=== PATIENT | male | born 1970 | race American Indian/Alaskan Native ===

== ENCOUNTER 2018-11-25 15:33 | Inpatient (IN) | payer MEDICARE ==
[2018-11-25] MEDS ORDERED: D50W (25GM) Syringe IV PRN (16:08)
[2018-11-25] MEDS ORDERED: ZOFRAN ODT PO PRN (16:28)
[2018-11-25] MEDS ORDERED: MIRALAX 3350 PO PRN (16:28)
[2018-11-25] MEDS ORDERED: DULCOLAX PR PRN (16:28)
[2018-11-25] MEDS ORDERED: TYLENOL PO PRN (16:28)
[2018-11-25] MEDS ORDERED: VANCOMYCIN PHARMACY TO DOSE IV SCH (17:00)
[2018-11-25] MEDS: ROXICODONE PO PRN (21:51)
[2018-11-25] MEDS: COREG PO SCH (21:51)
[2018-11-25] MEDS: PRAVACHOL PO SCH (21:51)
[2018-11-25] MEDS: HEPARIN SUB-Q SCH (21:52)
[2018-11-25] MEDS: VANCOMYCIN 1,250 MG in NACL 0.9% 250ML 250 ML IV SCH (21:53)
[2018-11-25] MEDS: LANTUS SUB-Q SCH (21:57)
[2018-11-25] MEDS: CATAPRES PO SCH (22:39)
[2018-11-26] MEDS: CARDIZEM PO SCH ×4 (00:36→18:23)
[2018-11-26] MEDS: HumaLOG SUB-Q SCH ×4 (00:48→18:10)
[2018-11-26] MEDS: CATAPRES PO SCH ×3 (05:06→23:09)
[2018-11-26] MEDS: HEPARIN SUB-Q SCH ×3 (05:07→22:54)
[2018-11-26 06:33] LABS: Basophils % (Auto) 0.1 % (0.0-1.8); Hematocrit 26.6 % (35.5-45.6); Hemoglobin 8.8 gm/dl (11.8-15.2); Lymphocytes # (Auto) 0.9 K/mm3 (1.2-5.4); Lymphocytes % (Auto) 6.2 % (13.4-35.0); Mean Corpuscular HGB Conc 33 % (32-34); Mean Corpuscular Volume 80 fl (84-94); Monocytes # (Auto) 0.7 K/mm3 (0.0-0.8); Monocytes % (Auto) 5.2 % (0.0-7.3); Platelet Count 506 K/mm3 (140-440); Red Blood Count 3.33 M/mm3 (3.65-5.03); Red Cell Distribution Width 18.6 % (13.2-15.2)
[2018-11-26 06:34] LABS: Albumin 2.3 g/dL (3.9-5); Calcium 7.9 mg/dL (8.4-10.2)
[2018-11-26] MEDS: ROXICODONE PO PRN ×2 (08:10→18:10)
--- NOTE | 2018-11-26 08:31 | History and Physical Report ---
History of Present Illness Date: 11/26/18 Date of admission: 11/25/18 16:08 Chief Complaint: Left BKA, ADL and mobility deficits History of present illness: 48-year-old male who presented to the ER with pain and swelling with purulent drainage from the left diabetic foot wound. He had a recent medication of this second digit. He underwent a left BKA on November 20. Blood cultures were positive for MRSA and was started on IV vancomycin which she will continue thro [facility] in [place] 12/05. Initial blood cultures and postop blood cultures were positive as stated but follow-up blood cultures on November 22 were negative. Patient has a right BKA and has been ambulatory with a prosthesis. States that he recently was scheduled to see his prosthesis for a retrofit. Oddly enough he has a different prosthesis for each leg. I advised him it would be hernandez to have the same prosthesis for both legs and the choice would be up to him as far as which one he wants to continue with. Patient states that he did have phantom pain and sensation in the right lower extremity with his prior amputation from approximately 2011 however he has not experienced any phantom sensation or phantom pain currently with his left amputation. Dressing was taken down with therapy and no malodorous or purulent discharge was noted. He did have some slight bloody drainage at the anterior medial aspect on the staple line. After the patient was medically stabilized they were transferred for further rehabilitation. All available medical records have been reviewed. Plan of care was discussed with patient and family. Past History Past Medical History: anemia, diabetes, GERD, hypertension, hyperlipidemia, PVD, renal failure, other (obesity) Past Surgical History: Other (right BKA, vascular grafts) Social history: , lives with family, full code. denies: smoking, alcohol abuse, prescription drug abuse Family history: hypertension Medications and Allergies Allergies Allergy/AdvReac Type Severity Reaction Status Date / Time metformin Allergy Anaphylaxis Verified 11/25/18 20:02 Penicillins Allergy Anaphylaxis Verified 11/25/18 20:01 Home Medications Medication Instructions Recorded Confirmed Last Taken Type Acetaminophen [Acetaminophen ER] 650 mg PO Q6HR PRN 11/26/18 11/26/18 Unknown History Ascorbic Acid [Vitamin C] 250 mg PO QDAY 11/26/18 11/26/18 11/24/18 09:00 History Carvedilol [Coreg] 25 mg PO BID 11/26/18 11/26/1811/25/19 09:05 History Clonidine HCl [Catapres] 0.3 mg PO TID 11/26/18 11/26/18 11/25/18 14:40 History Deltasone 40 mg PO QDAY 11/26/18 11/26/18 11/25/18 09:00 History Famotidine [Pepcid] 20 mg PO BID 11/26/18 11/26/18 11/25/18 09:00 History Heparin Sodium,Porcine [Heparin 5,000 unit SUB-Q Q8HR 11/26/18 11/26/18 11/25/18 09:00 History Sodium 5000 unit/ml 1ml vial] Insulin Detemir [Levemir VIAL] 30 units SC QHS 11/26/18 11/26/18 11/25/18 21:45 History NIFEdipine XL [Procardia Xl] 60 mg PO QDAY 11/26/18 11/26/18 11/24/18 09:00 History Pravastatin 20 mg QDAY 11/26/18 11/26/18 11/25/18 21:45 History Vancomycin/0.9 % Sod Chloride 1,500 mg IV Q24HR 11/26/18 11/26/18 11/24/18 21:45 History [Vanco 1.5 gm/250 ml-0.9% NaCl] Zinc Sulfate 220 mg PO QDAY 11/26/18 11/26/18 11/25/18 09:00 History dilTIAZem HCl [Diltiazem 24Hr ER 120 mg PO QDAY 11/26/18 11/26/18 11/26/18 00:00 History (Xr)] oxyCODONE [roxiCODONE] 5 mg PO Q4HR PRN 11/26/18 11/26/18 11/25/18 09:00 History Active Meds: Active Medications Acetaminophen (Tylenol) 650 mg PO Q6H PRN PRN Reason: Non Cardiac Pain or Temp>100.5 Ascorbic Acid (Vitamin C) 250 mg PO QDAY [facility] Aspirin (Ecotrin) 325 mg PO QDAY [facility] Bisacodyl (Dulcolax) 10 mg NE QDAY PRN PRN Reason: Constipation Carvedilol (Coreg) 25 mg PO BID [facility] Last Admin: 11/25/18 21:51 Dose: 25 mg Documented by: Clonidine HCl (Catapres) 0.3 mg PO Q8H [facility] Last Admin: 11/26/18 05:06 Dose: 0.3 mg Documented by: Dextrose (D50w (25gm) Syringe) 50 ml IV PRN PRN PRN Reason: Hypoglycemia Diltiazem HCl (Cardizem) 30 mg PO Q6HR [facility] Last Admin: 11/26/18 05:08 Dose: 30 mg Documented by: Heparin Sodium (Porcine) (Heparin) 5,000 unit SUB-Q Q8HR [facility] Last Admin: 11/26/18 05:07 Dose: 5,000 unit Documented by: Vancomycin HCl 1,250 mg/ (Sodium Chloride) 275 mls @ 166.667 mls/hr IV Q24H [facility] Last Admin: 11/25/18 21:53 Dose: 166.667 mls/hr Documented by: Insulin Glargine (Lantus) 35 units SUB-Q QHS [facility] Last Admin: 11/25/18 21:57 Dose: 35 units Documented by: Insulin Human Lispro (Humalog) 0 unit SUB-Q [facility]; Protocol Last Admin: 11/26/18 08:18 Dose: 4 unit Documented by: Ondansetron HCl (Zofran Odt) 4 mg PO Q8H PRN PRN Reason: Nausea And Vomiting Oxycodone HCl (Roxicodone) 5 mg PO Q6H PRN PRN Reason: Pain, Moderate (4-6) Last Admin: 11/26/18 08:10 Dose: 5 mg Documented by: Pantoprazole Sodium (Protonix) 20 mg PO QDAY [facility] Polyethylene Glycol (Miralax 3350) 17 gm PO QDAY PRN PRN Reason: Constipation Pravastatin Sodium (Pravachol) 20 mg PO QHS [facility] Last Admin: 11/25/18 21:51 Dose: 20 mg Documented by: Prednisone (Deltasone) 20 mg PO QDAY [facility] Stop: 12/01/18 09:59 Prednisone (Deltasone) 10 mg PO QDAY [facility] Stop: 12/06/18 09:59 Zinc Sulfate (Zinc Sulfate) 220 mg PO QDAY [facility] Review of Systems All systems: negative (ROS negative for 12 systems except as noted below with pertinent positives and negatives.) Constitutional: no fever, no chills Ears, nose, mouth and throat: no decreased hearing, no dysphagia Cardiovascular: high blood pressure, no chest pain, no palpitations, no rapid/irregular heart beat, no edema Respiratory: no cough, no shortness of breath Gastrointestinal: no abdominal pain, no nausea, no vomiting, no diarrhea, no constipation Genitourinary Male: no dysuria Musculoskeletal: gait dysfunction, prior amputations, no arm numbness/tingling, no leg numbness/tingling Integumentary: wounds, no rash Neurological: no head injury, no parathesias, no numbness, no tingling Psychiatric: no insomnia, no change in appetite Exam - Exam Narrative exam: MUSCULOSKELETAL SPECIALTY EXAM CONSTITUTIONAL: Well developed, well nourished, appropriately groomed, obese LYMPHATIC: No appreciable abnormalities palpable in neck EENT: Visual monreal full to confrontation. EOMI. Oropharynx clear. Hearing intact to soft voice RESPIRATORY: Clear to auscultation bilaterally, no increased work of breathing CARDIOVASCULAR: Regular Rate/ Rhythm, no swelling, edema or tenderness in BUE or BLE. Pulses palpable in all extremities. All extremities warm. GI: + bowel sounds, soft, NTTP, nondistended. INTEGUMENTARY: Normal, no lesion, rash, masses or bruising noted in extremities, except for surgical wound on left lower extremity, ne intact, no signs of infection, slight bloody drainage at anterior medial aspect MUSCULOSKELETAL: BUE and BLE normal without defect, crepitus, subluxation, effusion, arthritic changes or TTP except for bilateral BKA RUE 4+/5, LUE 4-/5, both good ROM, with normal tone. BLE 4/5 good ROM, with normal tone NEURO: CN 2-12 grossly intact. Sensation intact in all extremities. Reflexes 2+ bila terally at biceps, brachioradialis. Coordination intact in BUE. No tremor noted in 4 extremities. POSTURE and GAIT: Sitting posture good. Balance appears reasonable. Gait deferred until seen with therapy. Stand pivot transfer with prosthetic leg reasonable PSYCH: Alert, oriented x3, affect appears normal. Insight appears intact. - Constitutional Vitals: Vital Signs - 12hr 11/25/18 11/25/18 11/26/18 21:51 22:00 00:36 Temperature Pulse Rate 70 68 Respiratory 17 Rate Respiratory 17 Rate [Left Lower Leg] Blood Pressure 121/72 123/72 O2 Sat by Pulse Oximetry 11/26/18 11/26/18 11/26/18 04:37 05:06 05:08 Temperature 37.2 C Pulse Rate 71 71 71 Respiratory 19 Rate Respiratory Rate [Left Lower Leg] Blood Pressure 151/77 157/77 157/77 O2 Sat by Pulse 96 Oximetry - Labs CBC & Chem 7: 11/26/18 05:49 11/26/18 05:49 Labs: Laboratory Results - last 72 hr 11/25/18 11/26/18 11/26/18 22:02 00:39 05:49 WBC 14.3 H RBC 3.33 L Hgb 8.8 L Hct 26.6 L MCV 80 L MCH 26 L MCHC 33 RDW 18.6 H Plt Count 506 H Lymph % (Auto) 6.2 L [place] % (Auto) 5.2 Eos % (Auto) 0.0 Baso % (Auto) 0.1 Lymph # 0.9 L [place] # 0.7 Eos # 0.0 Baso # 0.0 Seg Neutrophils % 88.5 H Seg Neutrophils # 12.7 H Sodium Potassium Chloride Carbon Dioxide Anion Gap BUN Creatinine Estimated GFR BUN/Creatinine Ratio Glucose POC Glucose 342 H 366 H Calcium Total Bilirubin AST ALT Alkaline Phosphatase Total Protein Albumin Albumin/Globulin Ratio 11/26/18 05:49 WBC RBC Hgb Hct MCV MCH MCHC RDW Plt Count Lymph % (Auto) [place] % (Auto) Eos % (Auto) Baso % (Auto) Lymph # [place] # Eos # Baso # Seg Neutrophils % Seg Neutrophils # Sodium 131 L Potassium 4.0 Chloride 100.3 Carbon Dioxide 15 L Anion Gap 20 BUN 77 H Creatinine 2.1 H Estimated GFR 41 BUN/Creatinine Ratio 37 Glucose 253 H POC Glucose Calcium 7.9 L Total Bilirubin 0.70 AST 13 ALT 14 Alkaline Phosphatase 332 H Total Protein 7.8 Albumin 2.3 L Albumin/Globulin Ratio 0.4 Assessment and Plan Assessment and plan: Patient was assessed and evaluated for Acute Inpatient Rehab Unit. Due to the patients above-mentioned medical complexity, along with decreased functional mobility and self care, this patient continues to require and be appropriate for a comprehensive, multidisciplinary [id number] rehabilitation program. These needs cannot be met in an outpatient or other less intensive setting. The patient would continue to benefit from skilled therapy intervention for at least 3 hours per day, five days a week, with techniques specific to the needs of the patient to improve function, activities of daily living, and reintegration into the community. The patient continues to require: -- OT to improve ROM, self-care, and learn use of adaptive equipment -- PT to improve strength and balance, functional transfers, and ambulation with energy conservation techniques to improve functional mobility -- 24 hour RN to ensure and prevent skin breakdown, promote progressive independence while ensuring safety, ensure education regarding medications, and incorporation of the rehabilitation at the bedside -- 24 hour Sand Mill Operator [employer] to coordinate this interdisciplinary program, and to manage/prevent complications as a result of the patients medical comorbidities. -Plan of care by day 4 -Weekly team conferences With such a program, there is a reasonable certainty that the goals individualized for this patient can be achieved within the specified length of stay. Left BKA: Continue post surgical care with dressing changes every other day and when necessary. Monitor for any signs of wound infection. Ne to be removed in 6-8 weeks per surgery. Monitor for any signs of phantom pain or sensation. Coatings Inspector when able. Advised patient to choose one correctional officer lieutenant for both legs. Continue stump protector. Right BKA: In process of having prosthesis remade. Patient will decide between the 2 prosthetics company's which one he wants to continue with. Hypertension: Continue medications monitor for normotension adjust as needed Diabetes type 2, poorly controlled: Continue Carbatrol controlled diet, continue insulin and adjust as needed. Outside hospital A1c 10.0. Anemia: Mixed chronic and postacute blood loss. Monitor CBC will check anemia workup and replace needed components. GERD: Continue Protonix monitor MRSA bacteremia: Last blood culture performed on November 22 was negative. This is post amputation of November 20. We'll continue to monitor and will DC isolation. Continue vancomycin through 12/05. Hyperlipidemia: Continue statin Z73.6 ADL dysfunction: OT will work on improving ability to perform ADLs (including assistive devices) to increase independence and decrease caregiver burden and improve functional transfers and mobility training. R26.2 Difficulty walking: PT will work on gait training and proper use of assistive devices and advance as appropriate to use of stairs and outside ambulation on uneven surfaces. R26.81 Unsteadiness on feet: PT will work on improving static and dynamic sitting and standing balance as well as proper use of assistive devices to decrease risk of falls. R26.89 Abnormality of gait: PT will work to improve safety and efficiency of gait through neuromotor training and gait training along with instruction on proper use of assistive devices. M62.81 Muscle weakness: PT & OT will work on strengthening exercises to improve functional strength including mixture of closed and open kinetic chain exercises. R53.81 Debility: PT & OT will work on improving overall functional status to improve participation with ADLs, mobility and social involvement. R53.83 Fatigue: PT & OT will work on improving endurance through aerobic exercises and therapeutic activity while monitoring patients tolerance for activity and vital signs as needed. DVT ppx: Heparin 3 times a day Pain: Continue physical modalities in therapy and pain medications as needed to achieve functional pain control. Currently well controlled with Roxicodone as dosed Sleep: Monitor and address as needed. Bowel: Monitor and address as needed. Appetite: Monitor and address as needed. Discharge planning: Pending therapy progress and care plan meeting. Will continue discussion with therapy team, SW, patient and family. Restrictions/ Precautions: Falls WB status: FWB Functional Hx: ADLs: Independent Cognition: Independent Mobility: Walking independently with right lower extremity prosthesis Barriers to Discharge: Decreased mobility and ability to perform self care, bal ance deficits, weakness, decreased endurance and new second BKA Estimated Length of Stay: 14-18 days Discharge Destination: Home with family POST ADMISSION PHYSICIAN EVALUATION I have examined the patient and find that functional status, medical condition and appropriateness for IRF admission are essentially unchanged from those described in the preadmission screening. Will monitor for worsening bleeding and our infection from left lower extremity BKA site, DVT/PE, bowel and bladder complications and complications due to anemia, hypertension, diabetes, MRSA bacteremia, and electrolyte abnormalities. Will attempt to avoid occurrence of these issues or treat them if they present themselves.
[2018-11-26] MEDS: VITAMIN C PO SCH (09:56)
[2018-11-26] MEDS: COREG PO SCH ×2 (09:56→22:53)
[2018-11-26] MEDS: ZINC SULFATE PO SCH (09:56)
[2018-11-26] MEDS: DELTASONE PO SCH (09:56)
[2018-11-26] MEDS: PROTONIX PO SCH (09:56)
[2018-11-26] MEDS: ECOTRIN PO SCH (09:56)
[2018-11-26] MEDS: VANCOMYCIN 1,250 MG in NACL 0.9% 250ML 250 ML IV SCH (22:52)
[2018-11-26] MEDS: LANTUS SUB-Q SCH (22:52)
[2018-11-26] MEDS: PRAVACHOL PO SCH (22:53)
[2018-11-27] MEDS: CARDIZEM PO SCH ×5 (01:58→16:54)
[2018-11-27] MEDS: ROXICODONE PO PRN ×2 (02:51→22:48)
[2018-11-27] MEDS: HumaLOG SUB-Q SCH ×5 (02:59→22:50)
[2018-11-27] MEDS: CATAPRES PO SCH ×3 (03:00→22:41)
[2018-11-27] MEDS: HEPARIN SUB-Q SCH ×3 (05:51→22:43)
--- NOTE | 2018-11-27 09:45 | Progress Note ---
Subjective Date of service: 11/27/18 Principal diagnosis: Left BKA, ADL and mobility deficits Interval history: 48-year-old male who presented to the ER with pain and swelling with purulent drainage from the left diabetic foot wound. He had a recent medication of this second digit. He underwent a left BKA on November 20. Blood cultures were positive for MRSA and was started on IV vancomycin which she will continue through 12/05. Initial blood cultures and postop blood cultures were positive as stated but follow-up blood cultures on November 22 were negative. Patient has a right BKA and has been ambulatory with a prosthesis. States that he recently was scheduled to see his prosthesis for a retrofit. Oddly enough he has a different prosthesis for each leg. I advised him it would be hernandez to have the same prosthesis for both legs and the choice would be up to him as far as which one he wants to continue with. Patient states that he did have phantom pain and sensation in the right lower extremity with his prior amputation from approximately 2011 however he has not experienced any phantom sensation or phantom pain currently with his left amputation. Dressing was taken down with t herapy and no malodorous or purulent discharge was noted. He did have some slight bloody drainage at the anterior medial aspect on the staple line. Patient is participating in therapy and making reasonable progress. Taking rest breaks as needed. +BM. Denies palpitations, dyspnea, cough, N/V, or joint pain. Pain controlled with medications. Notes that left wrist is swollen - says this comes and goes. Not painful. Was told it was gout at OSH- questionable due to lack of pain. Not hot, denies injury. States it does limit movement due to discomfort. Otherwise doing well. Remove from isolation. Discussed in Team Conference. Will need w/c at discharge with elevating leg rests and chugs on Left wheel. Transfers ok. Prosthesis is in state of disrepair-locking mechanism does not work. He decided to remain with previous company for prosthetics. Continue therapy. All records, vitals, labs and medications were reviewed. No other issues per patient, nursing or therapy. Objective - Exam Narrative Exam: MUSCULOSKELETAL SPECIALTY EXAM CONSTITUTIONAL: Well developed, well nourished, appropriately groomed, obese EENT: EOMI. Hearing intact to soft voice RESPIRATORY: Clear to auscultation bilaterally, no increased work of breathing CARDIOVASCULAR: Regular Rate/ Rhythm, no swelling, edema or tenderness in BUE or BLE. All extremities warm. GI: + bowel sounds, soft, NTTP, nondistended. INTEGUMENTARY: Normal, no lesion, rash, masses or bruising noted in extremities, except for surgical wound on left lower extremity, ne intact, wrapped MUSCULOSKELETAL: BUE and BLE normal without defect, crepitus, subluxation, effusion, arthritic changes or TTP except for bilateral BKA. Slight left wrist swelling, NTTP, normal temp RUE 4+/5, LUE 4-/5, both good ROM, with normal tone. BLE 4/5 good ROM, with normal tone NEURO: CN 2-12 grossly intact. Sensation intact in all extremities. No tremor noted in 4 extremities. POSTURE and GAIT: Sitting posture good. Balance appears reasonable. Will not be able to assess gait due to defect in prosthesis. Squat pivot transfer with prosthetic leg reasonable PSYCH: Alert, oriented x3, affect appears normal. Insight appears intact. - Constitutional Vitals: Vital Signs - 12hr 11/27/18 11/27/18 11/27/18 02:53 05:24 05:46 Temperature 36.6 C 36.8 C 36.8 C Pulse Rate 79 79 73 Respiratory 18 18 Rate Blood Pressure Blood Pressure 155/85 155/88 159/84 [Left] O2 Sat by Pulse 98 97 Oximetry 11/27/18 11/27/18 08:40 09:05 Temperature 36.6 C Pulse Rate 68 Respiratory 18 Rate Blood Pressure 143/75 Blood Pressure [Left] O2 Sat by Pulse 99 99 Oximetry - Allied health notes Allied health notes reviewed: nursing, PT, OT FIMS assessment as documented by PT/OT/ST: Grooming Patient cleans teeth/dentures: Yes Patient joseph/brushes hair: Yes Patient washes, rinses and Yes dries face: Patient washes, rinses and Yes dries hands: Patient performs (no make-up/ / (100%) shaving): Grooming FIM Score 5. Supervision ([place] applies toothpaste or opens containers.) Toileting Toileting Device Commode over Toilet,Grab Bar Patient able to: Adjust clothes before,Clean self,Adjust clothes after Patient able to perform: 3/3 (100%) Toileting FIM Score 5. Supv./Set-Up (Needs stand-by, set-up, applying prosth/orth.) Social interaction/Memory/Problem solving Social Interaction FIM Score 7. Complete [place] (Interacts appropriately. Controls temper.) Memory FIM Score 7. Complete [place] (Remembers people and routines.) Problem Solving FIM Score 4. Minimal Assistance (Solves routine problems 75-90%.) Transfers Mode of Locomotion: Wheelchair Bed/Chair/Wheelchair Transfers 3. Moderate Assistance (Patient = 50% or more. FIM Score Some lifting.) Toilet Transfers FIM Score 3. Moderate Assistance (Patient = 50% or more. Some lifting.) Patient transferred to: Shower Shower Transfers FIM Score 3. Moderate Assistance (Patient = 50% or more. Some lifting.) Locomotion- Stairs Stairs FIM Score 0. Activity does not occur Locomotion- walk/wheelchair Most Frequent Mode of Wheelchair Locomotion: Wheelchair Propulsion Distance 200 Wheelchair FIM Score 4. Minimal Assistance (Patient = 75% or more. Minimum of 150 ft.) Eating Eating FIM Score 5. Supervision/Set-Up (Needs help w/ containers, cutting meat, etc.) Dressing-Upper body Patient retrieves clothing No items: Upper Body Dressing FIM Score 5. Supv./Set-Up ([place] sets out clothes or applies pros./orth.) Dressing-lower body Patient retrieves clothing No items: Patient applies/removes LE Yes prosthesis or orthosis: Lower Body Dressing FIM Score 3. Moderate Assistance (Patient = 50% or more) - Labs CBC & Chem 7: 11/26/18 05:49 11/26/18 05:49 Labs: Laboratory Results - last 72 hr 11/25/18 11/26/18 11/26/18 22:02 00:39 05:49 WBC 14.3 H RBC 3.33 L Hgb 8.8 L Hct 26.6 L MCV 80 L MCH 26 L MCHC 33 RDW 18.6 H Plt Count 506 H Lymph % (Auto) 6.2 L [place] % (Auto) 5.2 Eos % (Auto) 0.0 Baso % (Auto) 0.1 Lymph # 0.9 L [place] # 0.7 Eos # 0.0 Baso # 0.0 Seg Neutrophils % 88.5 H Seg Neutrophils # 12.7 H Sodium Potassium Chloride Carbon Dioxide Anion Gap BUN Creatinine Estimated GFR BUN/Creatinine Ratio Glucose POC Glucose 342 H 366 H Calcium Total Bilirubin AST ALT Alkaline Phosphatase Total Protein Albumin Albumin/Globulin Ratio 11/26/18 11/26/18 11/26/18 05:49 08:24 12:23 WBC RBC Hgb Hct MCV MCH MCHC RDW Plt Count Lymph % (Auto) [place] % (Auto) Eos % (Auto) Baso % (Auto) Lymph # [place] # Eos # Baso # Seg Neutrophils % Seg Neutrophils # Sodium 131 L Potassium 4.0 Chloride 100.3 Carbon Dioxide 15 L Anion Gap 20 BUN 77 H Creatinine 2.1 H Estimated GFR 41 BUN/Creatinine Ratio 37 Glucose 253 H POC Glucose 253 H 257 H Calcium 7.9 L Total Bilirubin 0.70 AST 13 ALT 14 Alkaline Phosphatase 332 H Total Protein 7.8 Albumin 2.3 L Albumin/Globulin Ratio 0.4 11/26/18 11/26/18 17:09 23:58 WBC RBC Hgb Hct MCV MCH MCHC RDW Plt Count Lymph % (Auto) [place] % (Auto) Eos % (Auto) Baso % (Auto) Lymph # [place] # Eos # Baso # Seg Neutrophils % Seg Neutrophils # Sodium Potassium Chloride Carbon Dioxide Anion Gap BUN Creatinine Estimated GFR BUN/Creatinine Ratio Glucose POC Glucose 239 H 265 H Calcium Total Bilirubin AST ALT Alkaline Phosphatase Total Protein Albumin Albumin/Globulin Ratio Assessment and Plan Left BKA: Continue post surgical care with dressing changes every other day and when necessary. Monitor for any signs of wound infection. Ne to be removed in 6-8 weeks per surgery. Monitor for any signs of phantom pain or sensation. 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 Advised patient to choose one undercutter operator for both legs. Continue stump protector. Right BKA: In process of having prosthesis remade. Hypertension: Continue medications monitor for normotension adjust as needed Diabetes type 2, poorly controlled: Continue Carbatrol controlled diet, continue insulin and adjust as needed. Outside hospital A1c 10.0. Anemia: Mixed chronic and postacute blood loss. Monitor CBC will check anemia workup and replace needed components. GERD: Continue Protonix monitor MRSA bacteremia: Last blood culture performed on November 22 was negative. This is post amputation of November 20. We'll continue to monitor and will DC isolation. Continue vancomycin through 12/05. Hyperlipidemia: Continue statin Monitor leukocytosis and renal function GLU - elevated due to prednisone taper - SSI SHort course of colchicine to assess for improvement in left wrist, uric acid elevated Z73.6 ADL dysfunction: OT will work on improving ability to perform ADLs (including assistive devices) to increase independence and decrease caregiver burden and improve functional transfers and mobility training. R26.2 Difficulty walking: PT will work on gait training and proper use of assistive devices and advance as appropriate to use of stairs and outside ambulation on uneven surfaces. R26.81 Unsteadiness on feet: PT will work on improving static and dynamic sitting and standing balance as well as proper use of assistive devices to decrease risk of falls. R26.89 Abnormality of gait: PT will work to improve safety and efficiency of gait through neuromotor training and gait training along with instruction on proper use of assistive devices. M62.81 Muscle weakness: PT & OT will work on strengthening exercises to improve functional strength including mixture of closed and open kinetic chain exercises. R53.81 Debility: PT & OT will work on improving overall functional status to improve participation with ADLs, mobility and social involvement. R53.83 Fatigue: PT & OT will work on improving endurance through aerobic exercises and therapeutic activity while monitoring patients tolerance for activity and vital signs as needed. DVT ppx: Heparin 3 times a day Pain: Continue physical modalities in therapy and pain medications as needed to achieve functional pain control. Currently well controlled with Roxicodone as dosed Sleep: Monitor and address as needed. Bowel: Monitor and address as needed. Appetite: Monitor and address as needed. Discharge planning: Pending therapy progress and care plan meeting. Will continue discussion with therapy team, SW, patient and family. Restrictions/ Precautions: Falls WB status: FWB Functional Hx: ADLs: Independent Cognition: Independent Mobility: Walking independently with right lower extremity prosthesis Barriers to Discharge: Decreased mobility and ability to perform self care, balance deficits, weakness, decreased endurance and new second BKA Estimated Length of Stay: 14-18 days Discharge Destination: Home with family
[2018-11-27] MEDS: ECOTRIN PO SCH (10:55)
[2018-11-27] MEDS: PROTONIX PO SCH (10:55)
[2018-11-27] MEDS: COREG PO SCH ×2 (10:55→22:42)
[2018-11-27] MEDS: ZINC SULFATE PO SCH (10:55)
[2018-11-27] MEDS: VITAMIN C PO SCH (10:55)
[2018-11-27] MEDS: DELTASONE PO SCH (10:55)
[2018-11-27] MEDS: PRAVACHOL PO SCH (22:41)
[2018-11-27] MEDS: LANTUS SUB-Q SCH (22:49)
[2018-11-27] MEDS: VANCOMYCIN 1,250 MG in NACL 0.9% 250ML 250 ML IV SCH (22:58)
[2018-11-28] MEDS: CARDIZEM PO SCH ×3 (03:49→12:50)
[2018-11-28] MEDS: CATAPRES PO SCH ×3 (04:49→21:48)
[2018-11-28] MEDS: ROXICODONE PO PRN ×4 (04:50→21:48)
[2018-11-28] MEDS: HEPARIN SUB-Q SCH ×3 (05:01→22:51)
[2018-11-28 06:59] LABS: Hematocrit 31.1 % (35.5-45.6); Mean Corpuscular HGB Conc 32 % (32-34); Mean Corpuscular Volume 82 fl (84-94); Platelet Count 512 K/mm3 (140-440); Red Blood Count 3.81 M/mm3 (3.65-5.03); Red Cell Distribution Width 18.6 % (13.2-15.2)
[2018-11-28 07:09] LABS: Calcium 8.3 mg/dL (8.4-10.2)
--- NOTE | 2018-11-28 07:29 | Progress Note ---
Subjective Date of service: 11/28/18 Principal diagnosis: Left BKA, ADL and mobility deficits Interval history: 48-year-old male who presented to the ER with pain and swelling with purulent drainage from the left diabetic foot wound. He had a recent medication of this second digit. He underwent a left BKA on November 20. Blood cultures were positive for MRSA and was started on IV vancomycin which she will continue through 12/05. Initial blood cultures and postop blood cultures were positive as stated but follow-up blood cultures on November 22 were negative. Patient has a right BKA and has been ambulatory with a prosthesis. States that he recently was scheduled to see his prosthesis for a retrofit. Oddly enough he has a different prosthesis for each leg. I advised him it would be hernandez to have the same prosthesis for both legs and the choice would be up to him as far as which one he wants to continue with. Patient states that he did have phantom pain and sensation in the right lower extremity with his prior amputation from approximately 2011 however he has not experienced any phantom sensation or phantom pain currently with his left amputation. Dressing was taken down with t herapy and no malodorous or purulent discharge was noted. He did have some slight bloody drainage at the anterior medial aspect on the staple line. Medical Hold today due to HTN. 189/92 when I checked. SBP >200 earlier and I wasn't notified. Have adjusted meds, added prn. No change in neuro status. Does stat he is having pain. Adjusted pain meds. +BM. Denies palpitations, dyspnea, cough, N/V, or joint pain. Pain controlled with medications. Left wrist still swollen. On prednisone, start short course of colchicine. Otherwise doing well. Remove from isolation. All records, vitals, labs and medications were reviewed. No other issues per patient, nursing or therapy. Objective - Exam Narrative Exam: MUSCULOSKELETAL SPECIALTY EXAM CONSTITUTIONAL: Well developed, well nourished, appropriately groomed, obese EENT: EOMI. Hearing intact to soft voice RESPIRATORY: Clear to auscultation bilaterally, no increased work of breathing CARDIOVASCULAR: Regular Rate/ Rhythm, no swelling, edema or tenderness in BUE or BLE. All extremities warm. GI: + bowel sounds, soft, NTTP, nondistended. INTEGUMENTARY: Normal, no lesion, rash, masses or bruising noted in extremities, except for surgical wound on left lower extremity, en intact, wrapped MUSCULOSKELETAL: BUE and BLE normal without defect, crepitus, subluxation, effusion, arthritic changes or TTP except for bilateral BKA. Slight left wrist swelling, NTTP, normal temp RUE 4+/5, LUE 4-/5, both good ROM, with normal tone. BLE 4/5 good ROM, with normal tone NEURO: CN 2-12 grossly intact. Sensation intact in all extremities. No tremor noted in 4 extremities. POSTURE and GAIT: Sitting posture good. Balance appears reasonable. Will not be able to assess gait due to defect in prosthesis. Squat pivot transfer with prosthetic leg reas onable PSYCH: Alert, oriented x3, affect appears normal. Insight appears intact. - Constitutional Vitals: Vital Signs - 12hr 11/27/18 11/27/18 11/28/18 22:42 22:48 04:33 Temperature Pulse Rate 71 88 Respiratory 17 Rate Blood Pressure 162/78 208/105 O2 Sat by Pulse 100 Oximetry 11/28/18 11/28/18 11/28/18 04:46 04:49 04:50 Temperature 36.9 C Pulse Rate 82 Respiratory 19 17 Rate Blood Pressure 197/97 O2 Sat by Pulse Oximetry 11/28/18 05:00 Temperature Pulse Rate 82 Respiratory Rate Blood Pressure 197/97 O2 Sat by Pulse Oximetry - Allied health notes Allied health notes reviewed: nursing, PT, OT FIMS assessment as documented by PT/OT/ST: Grooming Patient cleans teeth/dentures: Yes Patient joseph/brushes hair: Yes Patient washes, rinses and Yes dries face: Patient washes, rinses and Yes dries hands: Patient performs (no make-up/ 4/4 (100%) shaving): Grooming FIM Score 5. Supervision ([place] applies toothpaste or opens containers.) Toileting Toileting Device Commode over Toilet,Grab Bar Patient able to: Adjust clothes before,Clean self,Adjust clothes after Patient able to perform: 3/3 (100%) Toileting FIM Score 5. Supv./Set-Up (Needs stand-by, set-up, applying prosth/orth.) Social interaction/Memory/Problem solving Social Interaction FIM Score 5. Supervision (Needs supv. <10%. Needs encouragement to participate.) Memory FIM Score 6. Modified [place](Mild difficulty remembering people/routines.) Problem Solving FIM Score 6. Mod. [place] (Mild difficulty or needs more time w/ complex.) Transfers Mode of Locomotion: Wheelchair Bed/Chair/Wheelchair Transfers 4. Minimal Assistance (Patient = 75% or more. FIM Score Needs touching.) Toilet Transfers FIM Score 3. Moderate Assistance (Patient = 50% or more. Some lifting.) Patient transferred to: Shower Shower Transfers FIM Score 3. Moderate Assistance (Patient = 50% or more. Some lifting.) Locomotion- Stairs Stairs FIM Score 0. Activity does not occur Locomotion- walk/wheelchair Most Frequent Mode of Wheelchair Locomotion: Walking FIM Score 0. Activity does not occur Wheelchair Propulsion Distance 200 Wheelchair FIM Score 5. Supervision (Minimum 150 ft. supv./cues or 50 ft. independently.) Eating Eating FIM Score 5. Supervision/Set-Up (Needs help w/ containers, cutting meat, etc.) Dressing-Upper body Patient retrieves clothing No items: Patient applies/removes UE Yes prosthesis or orthosis: Upper Body Dressing FIM Score 5. Supv./Set-Up ([place] sets out clothes or applies pros./orth.) Dressing-lower body Patient retrieves clothing No items: Patient applies/removes LE Yes prosthesis or orthosis: Lower Body Dressing FIM Score 5. Supv./Set-Up ([place] sets out clothes or applies pros./orth.) - Labs CBC & Chem 7: 11/28/18 06:35 11/28/18 06:35 Labs: Laboratory Results - last 72 hr 11/25/18 11/26/18 11/26/18 22:02 00:39 05:49 WBC 14.3 H RBC 3.33 L Hgb 8.8 L Hct 26.6 L MCV 80 L MCH 26 L MCHC 33 RDW 18.6 H Plt Count 506 H Lymph % (Auto) 6.2 L [place] % (Auto) 5.2 Eos % (Auto) 0.0 Baso % (Auto) 0.1 Lymph # 0.9 L [place] # 0.7 Eos # 0.0 Baso # 0.0 Seg Neutrophils % 88.5 H Seg Neutrophils # 12.7 H Sodium Potassium Chloride Carbon Dioxide Anion Gap BUN Creatinine Estimated GFR BUN/Creatinine Ratio Glucose POC Glucose 342 H 366 H Uric Acid Calcium Total Bilirubin AST ALT Alkaline Phosphatase Total Protein Albumin Albumin/Globulin Ratio Vancomycin Trough 11/26/18 11/26/18 11/26/18 05:49 08:24 12:23 WBC RBC Hgb Hct MCV MCH MCHC RDW Plt Count Lymph % (Auto) [place] % (Auto) Eos % (Auto) Baso % (Auto) Lymph # [place] # Eos # Baso # Seg Neutrophils % Seg Neutrophils # Sodium 131 L Potassium 4.0 Chloride 100.3 Carbon Dioxide 15 L Anion Gap 20 BUN 77 H Creatinine 2.1 H Estimated GFR 41 BUN/Creatinine Ratio 37 Glucose 253 H POC Glucose 253 H 257 H Uric Acid Calcium 7.9 L Total Bilirubin 0.70 AST 13 ALT 14 Alkaline Phosphatase 332 H Total Protein 7.8 Albumin 2.3 L Albumin/Globulin Ratio 0.4 Vancomycin Trough 11/26/18 11/26/18 11/27/18 17:09 23:58 10:09 WBC RBC Hgb Hct MCV MCH MCHC RDW Plt Count Lymph % (Auto) [place] % (Auto) Eos % (Auto) Baso % (Auto) Lymph # [place] # Eos # Baso # Seg Neutrophils % Seg Neutrophils # Sodium Potassium Chloride Carbon Dioxide Anion Gap BUN Creatinine Estimated GFR BUN/Creatinine Ratio Glucose POC Glucose 239 H 265 H 308 H Uric Acid Calcium Total Bilirubin AST ALT Alkaline Phosphatase Total Protein Albumin Albumin/Globulin Ratio Vancomycin Trough 11/27/18 11/27/18 11/27/18 11:57 12:28 16:27 WBC RBC Hgb Hct MCV MCH MCHC RDW Plt Count Lymph % (Auto) [place] % (Auto) Eos % (Auto) Baso % (Auto) Lymph # [place] # Eos # Baso # Seg Neutrophils % Seg Neutrophils # Sodium Potassium Chloride Carbon Dioxide Anion Gap BUN Creatinine Estimated GFR BUN/Creatinine Ratio Glucose POC Glucose 218 H 226 H Uric Acid 11.6 H Calcium Total Bilirubin AST ALT Alkaline Phosphatase Total Protein Albumin Albumin/Globulin Ratio Vancomycin Trough 11/27/18 11/27/18 11/28/18 18:49 21:03 06:35 WBC 13.0 H RBC 3.81 Hgb 10.0 L Hct 31.1 L MCV 82 L MCH 26 L MCHC 32 RDW 18.6 H Plt Count 512 H Lymph % (Auto) [place] % (Auto) Eos % (Auto) Baso % (Auto) Lymph # [place] # Eos # Baso # Seg Neutrophils % Seg Neutrophils # Sodium Potassium Chloride Carbon Dioxide Anion Gap BUN Creatinine Estimated GFR BUN/Creatinine Ratio Glucose POC Glucose 304 H Uric Acid Calcium Total Bilirubin AST ALT Alkaline Phosphatase Total Protein Albumin Albumin/Globulin Ratio Vancomycin Trough 22.1 H 11/28/18 06:35 WBC RBC Hgb Hct MCV MCH MCHC RDW Plt Count Lymph % (Auto) [place] % (Auto) Eos % (Auto) Baso % (Auto) Lymph # [place] # Eos # Baso # Seg Neutrophils % Seg Neutrophils # Sodium 139 D Potassium 4.0 Chloride 107.9 H Carbon Dioxide 19 L Anion Gap 16 BUN 43 H Creatinine 1.6 H Estimated GFR 57 BUN/Creatinine Ratio 27 Glucose 203 H POC Glucose Uric Acid Calcium 8.3 L Total Bilirubin AST ALT Alkaline Phosphatase Total Protein Albumin Albumin/Globulin Ratio Vancomycin Trough Assessment and Plan Left BKA: Continue post surgical care with dressing changes every other day and when necessary. Monitor for any signs of wound infection. Ne to be madeline francisco in 6-8 weeks per surgery. Monitor for any signs of phantom pain or sensation. 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 Advised patient to choose one cross country coach for both legs. Continue stump protector. Right BKA: In process of having prosthesis remade. Hypertension: Continue medications monitor for normotension adjust as needed. Max dose of coreg, clonidine and now diltiazem. Start hydralazine with prn. Diabetes type 2, poorly controlled: Continue Carbatrol controlled diet, continue insulin and adjust as needed. Outside hospital A1c 10.0. Anemia: Mixed chronic and postacute blood loss. Monitor CBC will check anemia workup and replace needed components. GERD: Continue Protonix monitor MRSA bacteremia: Last blood culture performed on November 22 was negative. This is post amputation of November 20. We'll continue to monitor and will DC isolation. Continue vancomycin through 12/05. Hyperlipidemia: Continue statin Hyperkalemia today. Monitor for correction. May need nephrology consult if it worsens. Monitor leukocytosis and renal function GLU - elevated due to prednisone taper - SSI SHort course of colchicine to assess for improvement in left wrist, uric acid elevated Z73.6 ADL dysfunction: OT will work on improving ability to perform ADLs (including assistive devices) to increase independence and decrease caregiver burden and improve functional transfers and mobility training. R26.2 Difficulty walking: PT will work on gait training and proper use of assistive devices and advance as appropriate to use of stairs and outside ambulation on uneven surfaces. R26.81 Unsteadiness on feet: PT will work on improving static and dynamic sitting and standing balance as well as proper use of assistive devices to decrease risk of falls. R26.89 Abnormality of gait: PT will work to improve safety and efficiency of gait through neuromotor training and gait training along with instruction on pr oper use of assistive devices. M62.81 Muscle weakness: PT & OT will work on strengthening exercises to improve functional strength including mixture of closed and open kinetic chain exercises. R53.81 Debility: PT & OT will work on improving overall functional status to improve participation with ADLs, mobility and social involvement. R53.83 Fatigue: PT & OT will work on improving endurance through aerobic exercises and therapeutic activity while monitoring patients tolerance for activity and vital signs as needed. DVT ppx: Heparin 3 times a day Pain: Continue physical modalities in therapy and pain medications as needed to achieve functional pain control. Currently well controlled with Roxicodone as dosed Sleep: Monitor and address as needed. Bowel: Monitor and address as needed. Appetite: Monitor and address as needed. Discharge planning: Pending therapy progress and care plan meeting. Will continue discussion with therapy team, SW, patient and family. Restrictions/ Precautions: Falls WB status: FWB Functional Hx: ADLs: Independent Cognition: Independent Mobility: Walking independently with right lower extremity prosthesis Barriers to Discharge: Decreased mobility and ability to perform self care, balance deficits, weakness, decreased endurance and new second BKA Estimated Length of Stay: 14-18 days Discharge Destination: Home with family
[2018-11-28] MEDS: HumaLOG SUB-Q SCH ×3 (08:45→16:55)
[2018-11-28] MEDS: DELTASONE PO SCH (08:57)
[2018-11-28] MEDS: PROTONIX PO SCH (08:57)
[2018-11-28] MEDS: ECOTRIN PO SCH (08:57)
[2018-11-28] MEDS: COREG PO SCH ×2 (08:57→21:39)
[2018-11-28] MEDS: VITAMIN C PO SCH (08:57)
[2018-11-28] MEDS: ZINC SULFATE PO SCH (08:57)
[2018-11-28] MEDS ORDERED: APRESOLINE PO PRN (13:00)
[2018-11-28] MEDS ORDERED: APRESOLINE PO SCH (14:00)
[2018-11-28] MEDS ORDERED: APRESOLINE PO ONE (15:04)
[2018-11-28] MEDS ORDERED: CARDIZEM PO SCH (15:10)
[2018-11-28] MEDS ORDERED: COLCHICINE PO ONE (16:30)
[2018-11-28] MEDS: APRESOLINE IV PRN (18:04)
[2018-11-28] MEDS: APRESOLINE PO SCH (21:39)
[2018-11-28] MEDS: PRAVACHOL PO SCH (21:39)
[2018-11-28] MEDS: LANTUS SUB-Q SCH (21:40)
--- NOTE | 2018-11-28 22:00 | IRU Plan of Care ---
Interdisciplinary Plan of Care - IP IRU INTERDISCIPLINARY PLAN: [facility] Inpatient Rehab Unit Plan of Care IRU Interdisciplinary Care Plan Start: 11/25/18 18:32 Freq: Admission then PRN Status: Active Protocol: Document 11/28/18 20:00 TH (Rec: 11/28/18 20:09 TH [id number]) Interdisciplinary Problem List Interdisciplinary Problem List Interdisciplinary Problem List Impaired Bathing/Grooming, Query Text:Answers will Trigger Problems Impaired Dressing,Impaired and Outcomes on Worklist. Mobility,Impaired Transfers, Impaired Problem Solving, Impaired Home Management, Impaired Safety IRU Interdisciplinary Care Plan Therapy Services Therapy Services Will Include: Physical Therapy,Occupational Query Text:Patient will be seen for a Therapy minimum of 3 hours of daily therapy 5 out of 7 days a week. Therapy intensity may be adjusted within a 7 consecutive day period to effectively serve the individual needs of the patient. Treatment Frequency/Intensity/Duration Treatment Frequency 5x/week Treatment Intensity 3 hours/day Treatment Duration 10-14 days Problem Area: Eating/Swallowing Eating/Swallowing Outcomes Eating/Swallowing Interventions Problem Area: Bathing/Grooming Bathing/Grooming Outcomes Bathing/Grooming Interventions Problem Area: Dressing Dressing Outcomes Improve [place] w/ UB Dressing,Improve [place] w/ LB Dressing Dressing Interventions ADL Training,Use of Assistive Devices,Neuromuscular Re- Education,Therapeutic Exercise ,Balance Work,Modalities, Patient/Caregiver Education Problem Area: Mobility Mobility Outcomes Improve [place] w/ Ambulation,Improve [place] w/ Wheelchair Mobility Interventions Therapeutic Exercise, Neuromuscular Re-Ed.,Visual/ Perceptual Training,Activity Tolerance Work,Modalities,Use of Assistive Devices,Patient/ Caregiver Education,Bed Mobility Work,Household Mobility Work,W/C Mobility Work Problem Area: Transfers Transfers Outcomes Improve [place] w/ Bed Transfers,Improve [place] w/ Toilet Transfers,Improve [place] w/ Tub/Shower Transfers Transfers Interventions Transfer Training,Therapeutic Exercise,Neuromuscular Re- Education,Visual/Perceptual Training,Activity Tolerance Work,Modalities,Use of Assistive Devices,Patient/ Caregiver Education Problem Area: Bowel/Bladder Managment Bowel/Bladder Outcomes Bowel/Bladder Interventions Problem Area: Toileting Toileting Outcomes Toileting Interventions Problem Area: Nutrition Nutrition Outcomes Nutrition Interventions Problem Area: Comprehension Comprehension Outcomes Comprehension Interventions Problem Area: Expression Expression Outcomes Expression Interventions Problem Area: Problem Solving Problem Solving Outcomes Improve Problem Solving Problem Solving Interventions Visual/Perceptual Training, Safety Education,Patient/ Caregiver Education Problem Area: Memory Memory Outcomes Memory Interventions Problem Area: Pain Management Pain Management Outcomes Demonstrate/Verbalize Pain Strategies Pain Management Interventions Medication Management, Positioning/Turning,Patient/ Caregiver Education Problem Area: Knowledge Deficits Knowledge Deficits Outcomes Demonstrate Ability to Manage Blood Glucose,Verbalize Understanding of S/S of Stroke Knowledge Deficits Interventions Problem Area: Skin/Tissue Integrity Skin/Tissue Integrity Outcomes Exhibit Healing of Wound/ Incision,Demonstrate Understanding of Self Wound Care Skin/Tissue Integrity Interventions Skin/Wound Care,Positioning/ Turning Problem Area: Social Interaction Social Interaction Outcomes Social Interaction Interventions Problem Area: Adjustment to Disability Adjustment to Disability Outcomes Demonstrated Improved Motivation/Participation Adjustment to Disability Interventions Resource Education Problem Area: Discharge Concerns Discharge Concerns Outcomes Discharge w/ Necessary Equipment,Have Home Health/ Outpatient Services Discharge Concerns Interventions Discharge Planning,Patient/ Family/Caregiver Counseling, Family/Caregiver Training Problem Area: Community Reintegration Community Reintegration Outcomes Community Reintegration Interventions Problem Area: Home Management Home Management Outcomes Improve [place] w/ Home Management Home Management Interventions Meal Preparation,Clothing Care ,Activity Tolerance Work,House Cleaning,Patient/Caregiver Education Problem Area: Safety Safety Outcomes Provide Safe Environment, Perform Selfcare Safely, Demonstrate Good Safety w/ Transfers/Mobility Safety Interventions Identify Fall Risk,[place] Pt. to Environment,Reduce Environmental Hazards,Neuro Check Assessment,Implement Mechanical Devices, i.e. Chair Alarm (Post Fall Update),Re- Educate Patient/Caregiver for Safety (Post Fall Update) Problem Area: Medication Education Medication Education Outcomes Patient/Caregiver will Verbalize Understanding of Medications Medication Education Interventions Explain Administration/Side Effects/Interactions Problem Area: Diabetes Education Diabetes Education Outcomes Demonstrate Knowledge of Resources Availlable in Diabetic Ed. Folder Diabetes Education Interventions Give Pt. Diabetes Education Folder Problem Area: Oxygenation Oxygenation Outcomes Oxygenation Interventions Problem Area: Cardiovascular Cardiovascular Outcomes Cardiovascular Interventions Physician Only Medical Prognosis and Rehabilitation Fair medicl prognosis and good rehab potential. Continue to monitor recovery and improvement Potential (Completed by Physician) This plan of care has been developed based on the findings from the pre- admission assessment, post admission physician evaluation, information gathered from the assessments from all therapy disciplines and other pertinent clinicians. The plan of care has been reviewed and discussed in collaboration with the interdisciplinary team. The plan of care will be reviewed and updated at least weekly.
[2018-11-28] MEDS: COLCHICINE PO SCH (22:16)
[2018-11-28] MEDS: VANCOMYCIN/NS 1 GM/250 ML 1 GM/250 ML BAG IV SCH (22:58)
[2018-11-29] MEDS: CARDIZEM PO SCH ×4 (00:54→17:37)
[2018-11-29] MEDS: HumaLOG SUB-Q SCH ×5 (00:55→23:02)
[2018-11-29] MEDS: ROXICODONE PO PRN ×3 (01:09→22:59)
[2018-11-29] MEDS: CATAPRES PO SCH ×3 (05:21→22:49)
[2018-11-29] MEDS: APRESOLINE PO SCH ×3 (05:51→17:46)
[2018-11-29] MEDS: HEPARIN SUB-Q SCH ×3 (05:53→23:01)
[2018-11-29] MEDS: APRESOLINE IV PRN (06:55)
[2018-11-29 08:33] LABS: Hemoglobin 9.9 gm/dl (11.8-15.2); Mean Corpuscular HGB Conc 32 % (32-34); Mean Corpuscular Volume 81 fl (84-94); Platelet Count 497 K/mm3 (140-440); Red Blood Count 3.85 M/mm3 (3.65-5.03); Red Cell Distribution Width 18.9 % (13.2-15.2)
[2018-11-29] MEDS: PROTONIX PO SCH (08:36)
[2018-11-29] MEDS: ECOTRIN PO SCH (08:36)
[2018-11-29] MEDS: ZINC SULFATE PO SCH (08:36)
[2018-11-29] MEDS: COREG PO SCH ×2 (08:36→22:44)
[2018-11-29] MEDS: DELTASONE PO SCH (08:36)
[2018-11-29] MEDS: VITAMIN C PO SCH (08:37)
[2018-11-29 08:51] LABS: BUN/Creatinine Ratio 28; Blood Urea Nitrogen 34 mg/dL (9-20); Calcium 8.4 mg/dL (8.4-10.2); Hemolysis Index 1
[2018-11-29] MEDS: LANTUS SUB-Q SCH (22:43)
[2018-11-29] MEDS: PRAVACHOL PO SCH (22:43)
[2018-11-29] MEDS: COLCHICINE PO SCH (22:43)
[2018-11-29] MEDS: VANCOMYCIN/NS 1 GM/250 ML 1 GM/250 ML BAG IV SCH (23:10)
[2018-11-30] MEDS: CARDIZEM PO SCH ×4 (00:45→17:30)
[2018-11-30] MEDS: APRESOLINE PO SCH ×3 (00:50→17:30)
[2018-11-30] MEDS: HEPARIN SUB-Q SCH ×3 (05:21→21:36)
[2018-11-30] MEDS: CATAPRES PO SCH ×2 (05:25→12:20)
[2018-11-30 07:29] LABS: Hematocrit 30.2 % (35.5-45.6); Hemoglobin 9.6 gm/dl (11.8-15.2); Mean Corpuscular HGB Conc 32 % (32-34); Mean Corpuscular Volume 82 fl (84-94); Platelet Count 440 K/mm3 (140-440); Red Blood Count 3.71 M/mm3 (3.65-5.03)
[2018-11-30 07:44] LABS: Calcium 7.8 mg/dL (8.4-10.2)
[2018-11-30] MEDS: PROTONIX PO SCH (08:46)
[2018-11-30] MEDS: DELTASONE PO SCH (08:46)
[2018-11-30] MEDS: HumaLOG SUB-Q SCH ×4 (08:46→21:38)
[2018-11-30] MEDS: ECOTRIN PO SCH (08:46)
[2018-11-30] MEDS: VITAMIN C PO SCH (08:47)
[2018-11-30] MEDS: COREG PO SCH ×2 (08:47→21:35)
[2018-11-30] MEDS: ROXICODONE PO PRN ×2 (08:47→15:10)
[2018-11-30] MEDS: ZINC SULFATE PO SCH (08:47)
[2018-11-30] MEDS: APRESOLINE IV PRN ×2 (08:48→17:41)
[2018-11-30] MEDS: PRAVACHOL PO SCH (21:36)
[2018-11-30] MEDS: LANTUS SUB-Q SCH (21:37)
[2018-11-30] MEDS: COLCHICINE PO SCH (21:37)
[2018-11-30] MEDS: VANCOMYCIN/NS 1 GM/250 ML 1 GM/250 ML BAG IV SCH (21:41)
[2018-12-01] MEDS: APRESOLINE PO SCH ×3 (00:11→17:07)
[2018-12-01] MEDS: ROXICODONE PO PRN (00:12)
[2018-12-01] MEDS: CARDIZEM PO SCH ×4 (00:13→17:06)
[2018-12-01] MEDS: CATAPRES PO SCH ×4 (05:01→20:03)
[2018-12-01] MEDS: HEPARIN SUB-Q SCH ×3 (05:24→22:11)
[2018-12-01 07:18] LABS: Hematocrit 29.7 % (35.5-45.6); Hemoglobin 9.5 gm/dl (11.8-15.2); Mean Corpuscular HGB Conc 32 % (32-34); Mean Corpuscular Volume 81 fl (84-94); Platelet Count 428 K/mm3 (140-440); Red Blood Count 3.66 M/mm3 (3.65-5.03)
--- NOTE | 2018-12-01 09:09 | Progress Note ---
Subjective Date of service: 12/01/18 Principal diagnosis: Left BKA, ADL and mobility deficits Interval history: 48-year-old male who presented to the ER with pain and swelling with purulent drainage from the left diabetic foot wound. He had a recent medication of this second digit. He underwent a left BKA on November 20. Blood cultures were positive for MRSA and was started on IV vancomycin which she will continue through 12/05. Initial blood cultures and postop blood cultures were positive as stated but follow-up blood cultures on November 22 were negative. Patient has a right BKA and has been ambulatory with a prosthesis. States that he recently was scheduled to see his prosthesis for a retrofit. Oddly enough he has a different prosthesis for each leg. I advised him it would be hernandez to have the same prosthesis for both legs and the choice would be up to him as far as which one he wants to continue with. Patient states that he did have phantom pain and sensation in the right lower extremity with his prior amputation from approximately 2011 however he has not experienced any phantom sensation or phantom pain currently with his left amputation. Dressing was taken down with t herapy and no malodorous or purulent discharge was noted. He did have some slight bloody drainage at the anterior medial aspect on the staple line. Participating in therapy and making progress. +BM. Denies palpitations, dyspnea, cough, N/V, or joint pain. Pain controlled with medications. Left wrist still swollen but decreased today - seems more like ganglion cyst. On prednisone, will stop colchicine. BP has been difficult to control. Max out on multiple classes. Otherwise doing well. All records, vitals, labs and medications were reviewed. No other issues per patient, nursing or therapy. Objective - Exam Narrative Exam: MUSCULOSKELETAL SPECIALTY EXAM CONSTITUTIONAL: Well developed, well nourished, appropriately groomed, obese EENT: EOMI. Hearing intact to soft voice RESPIRATORY: Clear to auscultation bilaterally, no increased work of breathing CARDIOVASCULAR: Regular Rate/ Rhythm, no swelling, edema or tenderness in BUE or BLE. All extremities warm. GI: + bowel sounds, soft, NTTP, nondistended. INTEGUMENTARY: Normal, no lesion, rash, masses or bruising noted in extremities, except for s urgical wound on left lower extremity, ne intact, wrapped MUSCULOSKELETAL: BUE and BLE normal without defect, crepitus, subluxation, effusion, arthritic changes or TTP except for bilateral BKA. Slight left wrist swelling, NTTP, normal temp RUE 4+/5, LUE 4-/5, both good ROM, with normal tone. BLE 4/5 good ROM, with normal tone NEURO: CN 2-12 grossly intact. Sensation intact in all extremities. No tremor noted in 4 extremities. POSTURE and GAIT: Sitting posture good. Balance appears reasonable. Will not be able to assess gait due to defect in prosthesis. Squat pivot transfer with prosthetic leg reasonable PSYCH: Alert, oriented x3, affect appears normal. Insight appears intact. - Constitutional Vitals: Vital Signs - 12hr 11/30/18 12/01/18 12/01/18 21:35 00:12 00:13 Temperature Pulse Rate 70 67 Respiratory 17 Rate Blood Pressure 141/70 145/75 O2 Sat by Pulse Oximetry 12/01/18 12/01/18 12/01/18 01:12 04:12 05:22 Temperature 36.8 C Pulse Rate 70 70 Respiratory 17 19 Rate Blood Pressure 167/87 167/82 O2 Sat by Pulse 98 Oximetry 12/01/18 05:23 Temperature Pulse Rate 70 Respiratory Rate Blood Pressure 167/82 O2 Sat by Pulse Oximetry - Allied health notes Allied health notes reviewed: nursing, PT, OT FIMS assessment as documented by PT/OT/ST: Grooming Patient cleans teeth/dentures: Yes Patient joseph/brushes hair: Yes Patient washes, rinses and Yes dries face: Patient washes, rinses and Yes dries hands: Patient performs (no make-up/ 4/4 (100%) shaving): Grooming FIM Score 5. Supervision ([place] applies toothpaste or opens containers.) Toileting Toileting Device Commode over Toilet,Grab Bar Patient able to: Adjust clothes before,Clean self,Adjust clothes after Patient able to perform: 3/3 (100%) Toileting FIM Score 5. Supv./Set-Up (Needs stand-by, set-up, applying prosth/orth.) Social interaction/Memory/Problem solving Social Interaction FIM Score 7. Complete [place] (Interacts appropriately. Controls temper.) Memory FIM Score 6. Modified [place](Mild difficulty remembering people/routines.) Problem Solving FIM Score 6. Mod. [place] (Mild difficulty or needs more time w/ complex.) Transfers Mode of Locomotion: Wheelchair Bed/Chair/Wheelchair Transfers 4. Minimal Assistance (Patient = 75% or more. FIM Score Needs touching.) Toilet Transfers FIM Score 3. Moderate Assistance (Patient = 50% or more. Some lifting.) Patient transferred to: Shower Shower Transfers FIM Score 3. Moderate Assistance (Patient = 50% or more. Some lifting.) Locomotion- Stairs Stairs FIM Score 0. Activity does not occur Locomotion- walk/wheelchair Most Frequent Mode of Wheelchair Locomotion: Walking FIM Score 0. Activity does not occur Wheelchair Propulsion Distance 200 Wheelchair FIM Score 5. Supervision (Minimum 150 ft. supv./cues or 50 ft. independently.) Eating Eating FIM Score 7. Complete [place] (Cuts meat, opens containers, regular diet.) Dressing-Upper body Patient retrieves clothing Yes items: Patient applies/removes UE Yes prosthesis or orthosis: Upper Body Dressing FIM Score 6. Modified [place] (Needs equipment, velcro or pros./orth.) Dressing-lower body Patient retrieves clothing Yes items: Patient applies/removes LE Yes prosthesis or orthosis: Lower Body Dressing FIM Score 6. Modified [place] (Needs equipment, velcro or pros./orth.) - Labs CBC & Chem 7: 12/01/18 06:50 12/01/18 06:50 Labs: Laboratory Results - last 72 hr 11/28/18 11/28/18 11/28/18 13:16 16:24 20:59 WBC RBC Hgb Hct MCV MCH MCHC RDW Plt Count Sodium Potassium Chloride Carbon Dioxide Anion Gap BUN Creatinine Estimated GFR BUN/Creatinine Ratio Glucose POC Glucose 248 H 252 H 288 H Calcium 11/29/18 11/29/18 11/29/18 07:37 07:37 08:41 WBC 11.9 H RBC 3.85 Hgb 9.9 L Hct 31.0 L MCV 81 L MCH 26 L MCHC 32 RDW 18.9 H Plt Count 497 H Sodium 141 Potassium 3.6 Chloride 109.4 H Carbon Dioxide 21 L Anion Gap 14 BUN 34 H Creatinine 1.2 Estimated GFR > 60 BUN/Creatinine Ratio 28 Glucose 65 L POC Glucose 68 L Calcium 8.4 11/29/18 11/29/18 11/29/18 09:35 11:54 16:55 WBC RBC Hgb Hct MCV MCH MCHC RDW Plt Count Sodium Potassium Chloride Carbon Dioxide Anion Gap BUN Creatinine Estimated GFR BUN/Creatinine Ratio Glucose POC Glucose 116 H 100 225 H Calcium 11/29/18 11/30/18 11/30/18 22:11 06:21 06:21 WBC 10.2 RBC 3.71 Hgb 9.6 L Hct 30.2 L MCV 82 L MCH 26 L MCHC 32 RDW 19.0 H Plt Count 440 Sodium 134 L Potassium 3.8 Chloride 103.6 Carbon Dioxide 19 L Anion Gap 15 BUN 34 H Creatinine 1.6 H Estimated GFR 57 BUN/Creatinine Ratio 21 Glucose 341 H POC Glucose 343 H Calcium 7.8 L 11/30/18 11/30/18 11/30/18 08:06 11:56 17:34 WBC RBC Hgb Hct MCV MCH MCHC RDW Plt Count Sodium Potassium Chloride Carbon Dioxide Anion Gap BUN Creatinine Estimated GFR BUN/Creatinine Ratio Glucose POC Glucose 339 H 124 H 193 H Calcium 11/30/18 12/01/18 12/01/18 21:07 06:50 06:50 WBC 10.1 RBC 3.66 Hgb 9.5 L Hct 29.7 L MCV 81 L MCH 26 L MCHC 32 RDW 19.0 H Plt Count 428 Sodium 139 Potassium 4.3 Chloride 109.1 H Carbon Dioxide 19 L Anion Gap 15 BUN 36 H Creatinine 1.6 H Estimated GFR 57 BUN/Creatinine Ratio 23 Glucose 156 H POC Glucose 311 H Calcium 8.0 L Assessment and Plan Left BKA: Continue post surgical care with dressing changes every other day and when necessary. Monitor for any signs of wound infection. Ne to be removed in 6-8 weeks per surgery. Monitor for any signs of phantom pain or sensation. Rim Roller Operator when able. Advised patient to choose one engravings polisher for both legs. Continue stump protector. Right BKA: In process of having prosthesis remade. Hypertension: Continue medications monitor for normotension adjust as needed. Max dose of coreg, clonidine and now diltiazem. Start hydralazine with prn. Diabetes type 2, poorly controlled: Continue Carbatrol controlled diet, continue insulin and adjust as needed. Outside hospital A1c 10.0. Anemia: Mixed chronic and postacute blood loss. Monitor CBC will check anemia workup and replace needed components. GERD: Continue Protonix monitor MRSA bacteremia: Last blood culture performed on November 22 was negative. This is post amputation of November 20. We'll continue to monitor and will DC isolation. Continue vancomycin through 12/05. Hyperlipidemia: Continue statin Hyperkalemia today. Monitor for correction. May need nephrology consult if it worsens. Monitor leukocytosis and renal function GLU - elevated due to prednisone taper - SSI Will d/c colchicine - feels like ganglion cyst today since swelling has decreased. Pain level not c/w gout Z73.6 ADL dysfunction: OT will work on improving ability to perform ADLs (including assistive devices) to increase independence and decrease caregiver burden and improve functional transfers and mobility training. R26.2 Difficulty walking: PT will work on gait training and proper use of assistive devices and advance as appropriate to use of stairs and outside ambulation on uneven surfaces. R26.81 Unsteadiness on feet: PT will work on improving static and dynamic sitting and standing balance as well as proper use of assistive devices to decrease risk of falls. R26.89 Abnormality of gait: PT will work to improve safety and efficiency of gait through neuromotor training and gait training along with instruction on proper use of assistive devices. M62.81 Muscle weakness: PT & OT will work on strengthening exercises to improve functional strength including mixture of closed and open kinetic chain exercises. R53.81 Debility: PT & OT will work on improving overall functional status to improve participation with ADLs, mobility and social involvement. R53.83 Fatigue: PT & OT will work on improving endurance through aerobic exercises and therapeutic activity while monitoring patients tolerance for activity and vital signs as needed. DVT ppx: Heparin 3 times a day Pain: Continue physical modalities in therapy and pain medications as needed to achieve functional pain control. Currently well controlled with Roxicodone as dosed Sleep: Monitor and address as needed. Bowel: Monitor and address as needed. Appetite: Monitor and address as needed. Discharge planning: Pending therapy progress and care plan meeting. Will continue discussion with therapy team, SW, patient and family. Restrictions/ Precautions: Falls WB status: FWB Functional Hx: ADLs: Independent Cognition: Independent Mobility: Walking independently with right lower extremity prosthesis Barriers to Discharge: Decreased mobility and ability to perform self care, balance deficits, weakness, decreased endurance and new second BKA Estimated Length of Stay: 14-18 days Discharge Destination: Home with family
[2018-12-01] MEDS: COREG PO SCH ×2 (10:32→22:15)
[2018-12-01] MEDS: DELTASONE PO SCH ×2 (10:32→10:34)
[2018-12-01] MEDS: ZINC SULFATE PO SCH (10:32)
[2018-12-01] MEDS: ECOTRIN PO SCH (10:33)
[2018-12-01] MEDS: PROTONIX PO SCH (10:33)
[2018-12-01] MEDS: VITAMIN C PO SCH (10:33)
[2018-12-01] MEDS: HumaLOG SUB-Q SCH ×3 (13:39→22:14)
[2018-12-01] MEDS: LANTUS SUB-Q SCH (22:12)
[2018-12-01] MEDS: VANCOMYCIN/NS 1 GM/250 ML 1 GM/250 ML BAG IV SCH (22:15)
[2018-12-01] MEDS: PRAVACHOL PO SCH (22:16)
[2018-12-01] MEDS: NIZORAL TP SCH (22:20)
[2018-12-02] MEDS: APRESOLINE PO SCH ×4 (00:20→23:17)
[2018-12-02] MEDS: CARDIZEM PO SCH ×5 (00:21→23:17)
[2018-12-02] MEDS: ROXICODONE PO PRN ×2 (02:55→23:16)
[2018-12-02] MEDS: CATAPRES PO SCH ×3 (05:11→19:55)
[2018-12-02] MEDS: HEPARIN SUB-Q SCH ×3 (05:11→21:37)
[2018-12-02 07:10] LABS: Hematocrit 28.8 % (35.5-45.6); Hemoglobin 9.3 gm/dl (11.8-15.2); Mean Corpuscular HGB Conc 32 % (32-34); Mean Corpuscular Volume 81 fl (84-94); Platelet Count 343 K/mm3 (140-440); Red Blood Count 3.53 M/mm3 (3.65-5.03); Red Cell Distribution Width 19.3 % (13.2-15.2)
[2018-12-02 07:22] LABS: BUN/Creatinine Ratio 24; Blood Urea Nitrogen 31 mg/dL (9-20); Hemolysis Index 4
[2018-12-02] MEDS: ECOTRIN PO SCH (07:55)
[2018-12-02] MEDS: ZINC SULFATE PO SCH (07:56)
[2018-12-02] MEDS: DELTASONE PO SCH (07:56)
[2018-12-02] MEDS: PROTONIX PO SCH (07:56)
[2018-12-02] MEDS: VITAMIN C PO SCH (07:56)
[2018-12-02] MEDS ORDERED: ALDACTONE PO SCH (08:00)
[2018-12-02] MEDS: COREG PO SCH ×2 (08:09→21:37)
[2018-12-02] MEDS: HumaLOG SUB-Q SCH ×5 (08:13→21:51)
[2018-12-02] MEDS: NIZORAL TP SCH ×2 (08:42→21:52)
--- NOTE | 2018-12-02 09:54 | Progress Note ---
Subjective Date of service: 12/02/18 Principal diagnosis: Left BKA, ADL and mobility deficits Interval history: 48-year-old male who presented to the ER with pain and swelling with purulent drainage from the left diabetic foot wound. He had a recent medication of this second digit. He underwent a left BKA on November 20. Blood cultures were positive for MRSA and was started on IV vancomycin which she will continue through 12/05. Initial blood cultures and postop blood cultures were positive as stated but follow-up blood cultures on November 22 were negative. Patient has a right BKA and has been ambulatory with a prosthesis. States that he recently was scheduled to see his prosthesis for a retrofit. Oddly enough he has a different prosthesis for each leg. I advised him it would be hernandez to have the same prosthesis for both legs and the choice would be up to him as far as which one he wants to continue with. Patient states that he did have phantom pain and sensation in the right lower extremity with his prior amputation from approximately 2011 however he has not experienced any phantom sensation or phantom pain currently with his left amputation. Dressing was taken down with t herapy and no malodorous or purulent discharge was noted. He did have some slight bloody drainage at the anterior medial aspect on the staple line. Participating in therapy and making progress. +BM. Denies palpitations, dyspnea, cough, N/V, or joint pain. Pain controlled with medications. Left wrist still swollen but decreased today wearing pressure glove. BP has been difficult to control. Max out on multiple classes, spironolactone started. Nephrology consulted. Having issue with allergies - takes flonase at home. Otherwise doing well. All records, vitals, labs and medications were reviewed. No other issues per patient, nursing or therapy. Objective - Exam Narrative Exam: MUSCULOSKELETAL SPECIALTY EXAM CONSTITUTIONAL: Well developed, well nourished, appropriately groomed, obese EENT: EOMI. Hearing intact to soft voice. No drainage seen, O/P clear RESPIRATORY: Clear to auscultation bilaterally, no increased work of breathing CARDIOVASCULAR: Regular Rate/ Rhythm, no swelling, edema or tenderness in BUE or BLE. All extremities warm. GI: + bowel sounds, soft, NTTP, nondistended. INTEGUMENTARY: Normal, no lesion, rash, masses or bruising noted in extremities, except for surgical wound on left lower extremity, ne intact, wrapped MUSCULOSKELETAL: BUE and BLE normal without defect, crepitus, subluxation, effusion, arthritic changes or TTP except for bilateral BKA. Slight left wrist swelling, NTTP, normal temp RUE 4+/5, LUE 4-/5, both good ROM, with normal tone. BLE 4/5 good ROM, with normal tone NEURO: CN 2-12 grossly intact. Sensation intact in all extremities. No tremor noted in 4 extremities. POSTURE and GAIT: Sitting posture good. Balance appears reasonable. Will not be able to assess gait due to defect in prosthesis. Squat pivot transfer with prosthetic leg reasonable PSYCH: Alert, oriented x3, affect appears normal. Insight appears intact. - Constitutional Vitals: Vital Signs - 12hr 12/01/18 12/02/18 12/02/18 22:15 00:21 01:15 Temperature 36.5 C Pulse Rate 75 73 73 Respiratory 18 Rate Blood Pressure 188/100 186/97 Blood Pressure 186/97 [Left] O2 Sat by Pulse Oximetry 12/02/18 12/02/18 12/02/18 02:55 03:55 05:02 Temperature 36.8 C Pulse Rate 68 Respiratory 7 L 17 17 Rate Blood Pressure Blood Pressure 179/90 [Left] O2 Sat by Pulse 98 Oximetry 12/02/18 12/02/18 12/02/18 05:10 05:11 07:48 Temperature 36.4 C Pulse Rate 68 68 69 Respiratory 18 Rate Blood Pressure 179/90 179/90 194/97 Blood Pressure [Left] O2 Sat by Pulse 99 Oximetry - Allied health notes Allied health notes reviewed: nursing, PT, OT FIMS assessment as documented by PT/OT/ST: Grooming Patient cleans teeth/dentures: Yes Patient joseph/brushes hair: Yes Patient washes, rinses and Yes dries face: Patient washes, rinses and Yes dries hands: Patient performs (no make-up/ / (100%) shaving): Grooming FIM Score 5. Supervision ([place] applies toothpaste or opens containers.) Toileting Toileting Device Commode over Toilet,Grab Bar Patient able to: Adjust clothes before,Clean self,Adjust clothes after Patient able to perform: 3/3 (100%) Toileting FIM Score 5. Supv./Set-Up (Needs stand-by, set-up, applying prosth/orth.) Social interaction/Memory/Problem solving Social Interaction FIM Score 7. Complete Wood (Interacts appropriately. Controls temper.) Memory FIM Score 6. Modified Wood(Mild difficulty remembering people/routines.) Problem Solving FIM Score 6. Mod. Wood (Mild difficulty or needs more time w/ complex.) Transfers Mode of Locomotion: Wheelchair Bed/Chair/Wheelchair Transfers 5. Supervision (Needs supv. or set-up for FIM Score sliding board, foot rests.) Toilet Transfers FIM Score 3. Moderate Assistance (Patient = 50% or more. Some lifting.) Patient transferred to: Shower Shower Transfers FIM Score 3. Moderate Assistance (Patient = 50% or more. Some lifting.) Locomotion- Stairs Stairs FIM Score 0. Activity does not occur Locomotion- walk/wheelchair Most Frequent Mode of Wheelchair Locomotion: Walking FIM Score 0. Activity does not occur Wheelchair Propulsion Distance 200 Wheelchair FIM Score 5. Supervision (Minimum 150 ft. supv./cues or 50 ft. independently.) Eating Eating FIM Score 6. Modified Wood (Special consistency or uses device.) Dressing-Upper body Patient retrieves clothing Yes items: Patient applies/removes UE Yes prosthesis or orthosis: Upper Body Dressing FIM Score 6. Modified Wood (Needs equipment, velcro or pros./orth.) Dressing-lower body Patient retrieves clothing Yes items: Patient applies/removes LE Yes prosthesis or orthosis: Lower Body Dressing FIM Score 6. Modified Wood (Needs equipment, velcro or pros./orth.) - Labs CBC & Chem 7: 12/02/18 06:53 12/03/18 06:33 Labs: Laboratory Results - last 72 hr 11/29/18 11/29/18 11/29/18 11:54 16:55 22:11 WBC RBC Hgb Hct MCV MCH MCHC RDW Plt Count Sodium Potassium Chloride Carbon Dioxide Anion Gap BUN Creatinine Estimated GFR BUN/Creatinine Ratio Glucose POC Glucose 100 225 H 343 H Calcium Vancomycin Trough 11/30/18 11/30/18 11/30/18 06:21 06:21 08:06 WBC 10.2 RBC 3.71 Hgb 9.6 L Hct 30.2 L MCV 82 L MCH 26 L MCHC 32 RDW 19.0 H Plt Count 440 Sodium 134 L Potassium 3.8 Chloride 103.6 Carbon Dioxide 19 L Anion Gap 15 BUN 34 H Creatinine 1.6 H Estimated GFR 57 BUN/Creatinine Ratio 21 Glucose 341 H POC Glucose 339 H Calcium 7.8 L Vancomycin Trough 11/30/18 11/30/18 11/30/18 11:56 17:34 21:07 WBC RBC Hgb Hct MCV MCH MCHC RDW Plt Count Sodium Potassium Chloride Carbon Dioxide Anion Gap BUN Creatinine Estimated GFR BUN/Creatinine Ratio Glucose POC Glucose 124 H 193 H 311 H Calcium Vancomycin Trough 12/01/18 12/01/18 12/01/18 06:50 06:50 13:11 WBC 10.1 RBC 3.66 Hgb 9.5 L Hct 29.7 L MCV 81 L MCH 26 L MCHC 32 RDW 19.0 H Plt Count 428 Sodium 139 Potassium 4.3 Chloride 109.1 H Carbon Dioxide 19 L Anion Gap 15 BUN 36 H Creatinine 1.6 H Estimated GFR 57 BUN/Creatinine Ratio 23 Glucose 156 H POC Glucose 197 H Calcium 8.0 L Vancomycin Trough 12/01/18 12/01/18 12/01/18 16:58 20:20 21:48 WBC RBC Hgb Hct MCV MCH MCHC RDW Plt Count Sodium Potassium Chloride Carbon Dioxide Anion Gap BUN Creatinine Estimated GFR BUN/Creatinine Ratio Glucose POC Glucose 240 H 300 H Calcium Vancomycin Trough 15.3 12/02/18 12/02/18 12/02/18 06:53 06:53 07:56 WBC 9.8 RBC 3.53 L Hgb 9.3 L Hct 28.8 L MCV 81 L MCH 26 L MCHC 32 RDW 19.3 H Plt Count 343 Sodium 138 Potassium 4.3 Chloride 108.0 H Carbon Dioxide 21 L Anion Gap 13 BUN 31 H Creatinine 1.3 Estimated GFR > 60 BUN/Creatinine Ratio 24 Glucose 231 H POC Glucose 206 H Calcium 8.0 L Vancomycin Trough Assessment and Plan Left BKA: Continue post surgical care with dressing changes every other day and when necessary. Monitor for any signs of wound infection. [place] to be removed in 6-8 weeks per surgery. Monitor for any signs of phantom pain or sensation. Cement Finisher when able. 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 Continue stump protector. Right BKA: In process of having prosthesis remade. Hypertension: Continue medications monitor for normotension adjust as needed. Max dose of coreg, clonidine and now diltiazem. Start hydralazine with prn. Start aldactone. Nephrology consulted. Diabetes type 2, poorly controlled: Continue Carb controlled diet, continue insulin and adjust as needed. Outside hospital A1c 10.0. Anemia: Mixed chronic and postacute blood loss. Monitor CBC will check anemia workup and replace needed components. GERD: Continue Protonix monitor MRSA bacteremia: Last blood culture performed on November 22 was negative. This is post amputation of November 20. We'll continue to monitor and will DC isolation. Continue vancomycin through 12/05. Hyperlipidemia: Continue statin Monitor leukocytosis and renal function GLU - elevated due to prednisone taper - SSI d/c colchicine - feels like ganglion cyst today since swelling has decreased. Pain level not c/w gout Z73.6 ADL dysfunction: OT will work on improving ability to perform ADLs (including assistive devices) to increase independence and decrease caregiver burden and improve functional transfers and mobility training. R26.2 Difficulty walking: PT will work on gait training and proper use of assistive devices and advance as appropriate to use of stairs and outside ambulation on uneven surfaces. R26.81 Unsteadiness on feet: PT will work on improving static and dynamic sitting and standing balance as well as proper use of assistive devices to decrease risk of falls. R26.89 Abnormality of gait: PT will work to improve safety and efficiency of gait through neuromotor training and gait training along with instruction on p jeffrey use of assistive devices. M62.81 Muscle weakness: PT & OT will work on strengthening exercises to improve functional strength including mixture of closed and open kinetic chain exercises. R53.81 Debility: PT & OT will work on improving overall functional status to improve participation with ADLs, mobility and social involvement. R53.83 Fatigue: PT & OT will work on improving endurance through aerobic exercises and therapeutic activity while monitoring patients tolerance for activity and vital signs as needed. DVT ppx: Heparin 3 times a day Pain: Continue physical modalities in therapy and pain medications as needed to achieve functional pain control. Currently well controlled with Roxicodone as dosed Sleep: Monitor and address as needed. Bowel: Monitor and address as needed. Appetite: Monitor and address as needed. Discharge planning: Pending therapy progress and care plan meeting. Will continue discussion with therapy team, SW, patient and family. Restrictions/ Precautions: Falls WB status: FWB Functional Hx: ADLs: Independent Cognition: Independent Mobility: Walking independently with right lower extremity prosthesis Barriers to Discharge: Decreased mobility and ability to perform self care, balance deficits, weakness, decreased endurance and new second BKA Estimated Length of Stay: 14-18 days Discharge Destination: Home with family
--- NOTE | 2018-12-02 12:29 | History and Physical Report ---
History of Present Illness Date of examination: 12/02/18 Date of admission: 11/25/18 16:08 Chief complaint: left BKA, mobility deficits History of present illness: This is a 48 year old man with history of DM, HTN, PVD who presents for mobility training s/p L BKA. Nephrology has been consulted for assistance with BP control and evaluation for potential CKD. Patient notes a long history of HTN (for roughly 10 years) and DM for the same time. He notes that his PCP ([facility]) has discussed changes in his kidney function in the past, with fluctuations thought to be related to dehydration. He notes that his blood pressure has always been difficult to control. He has a strong family history of hypertension, but does not know of any family history of kidney disease. He is currently without any acute concerns, and denies any swelling, shortness of breath, chest pain, nausea, vomiting, headaches. No vision changes. No skin rash. No history of autoimmune disease, UTIs, kidney stones, hematuria. Past History Past Medical History: anemia, diabetes, GERD, hypertension, hyperlipidemia, PVD, renal failure, other (obesity) Past Surgical History: Other (right BKA, vascular grafts) Social history: , lives with family, full code. denies: smoking, alcohol abuse, prescription drug abuse Family history: hypertension Medications and Allergies Allergies Allergy/AdvReac Type Severity Reaction Status Date / Time metformin Allergy Anaphylaxis Verified 11/25/18 20:02 Penicillins Allergy Anaphylaxis Verified 11/25/18 20:01 Home Medications Medication Instructions Recorded Confirmed Last Taken Type Acetaminophen [Acetaminophen ER] 650 mg PO Q6HR PRN 11/26/18 11/26/18 Unknown History Ascorbic Acid [Vitamin C] 250 mg PO QDAY 11/26/18 11/26/18 11/24/18 09:00 History Carvedilol [Coreg] 25 mg PO BID 11/26/18 11/26/18 11/25/18 09:05 History Clonidine HCl [Catapres] 0.3 mg PO TID 11/26/18 11/26/18 11/25/18 14:40 History Deltasone 40 mg PO QDAY 11/26/18 11/26/18 11/25/18 09:00 History Famotidine [Pepcid] 20 mg PO BID 11/26/18 11/26/18 11/25/18 09:00 History Heparin Sodium,Porcine [Heparin 5,000 unit SUB-Q Q8HR 11/26/18 11/26/18 11/25/18 09:00 History Sodium 5000 unit/ml 1ml vial] Insulin Detemir [Levemir VIAL] 30 units SC QHS 11/26/18 11/26/18 11/25/18 21:45 History NIFEdipine XL [Procardia Xl] 60 mg PO QDAY 11/26/18 11/26/18 11/24/18 09:00 History Pravastatin 20 mg QDAY 11/26/18 11/26/18 11/25/18 21:45 History Vancomycin/0.9 % Sod Chloride 1,500 mg IV Q24HR 11/26/18 11/26/18 11/24/18 21:45 History [Vanco 1.5 gm/250 ml-0.9% NaCl] Zinc Sulfate 220 mg PO QDAY 11/26/18 11/26/18 11/25/18 09:00 History dilTIAZem HCl [Diltiazem 24Hr ER 120 mg PO QDAY 11/26/18 11/26/18 11/26/18 00:00 History (Xr)] oxyCODONE [roxiCODONE] 5 mg PO Q4HR PRN 11/26/18 11/26/18 11/25/18 09:00 History Active Meds: Active Medications Acetaminophen (Tylenol) 650 mg PO Q6H PRN PRN Reason: Non Cardiac Pain or Temp>100.5 Ascorbic Acid (Vitamin C) 250 mg PO QDAY [facility] Last Admin: 12/02/18 07:56 Dose: 250 mg Documented by: Aspirin (Ecotrin) 325 mg PO QDAY [facility] Last Admin: 12/02/18 07:55 Dose: 325 mg Documented by: Bisacodyl (Dulcolax) 10 mg [place] QDAY PRN PRN Reason: Constipation Carvedilol (Coreg) 25 mg PO BID [facility] Last Admin: 12/02/18 08:09 Dose: 25 mg Documented by: Clonidine HCl (Catapres) 0.3 mg PO Q8H [facility] Last Admin: 12/02/18 05:11 Dose: 0.3 mg Documented by: Dextrose (D50w (25gm) Syringe) 50 ml IV PRN PRN PRN Reason: Hypoglycemia Diltiazem HCl (Cardizem) 90 mg PO Q6HR [facility] Last Admin: 12/02/18 05:10 Dose: 90 mg Documented by: Heparin Sodium (Porcine) (Heparin) 5,000 unit SUB-Q Q8HR [facility] Last Admin: 12/02/18 05:11 Dose: 5,000 unit Documented by: Hydralazine HCl (Apresoline) 10 mg IV Q4H PRN PRN Reason: Hypertension Last Admin: 11/30/18 17:41 Dose: 10 mg Documented by: Hydralazine HCl (Apresoline) 100 mg PO Q8H [facility] Last Admin: 12/02/18 08:09 Dose: 100 mg Documented by: Vancomycin HCl (Vancomycin/Ns 1 Gm/250 Ml) 1 gm in 250 mls @ 167.007 mls/hr IV Q24H [facility] Stop: 12/06/18 23:59 Last Admin: 12/01/18 22:15 Dose: 167 mls/hr Documented by: Insulin Glargine (Lantus) 35 units SUB-Q QHS [facility] Last Admin: 12/01/18 22:12 Dose: 35 units Documented by: Insulin Human Lispro (Humalog) 0 unit SUB-[address] [facility]; Protocol Last Admin: 12/02/18 08:13 Dose: 4 unit Documented by: Ketoconazole (Nizoral) 1 applic TP BID [facility] Stop: 12/08/18 21:59 Last Admin: 12/01/18 22:20 Dose: 1 applic Documented by: Ondansetron HCl (Zofran Odt) 4 mg PO Q8H PRN PRN Reason: Nausea And Vomiting Oxycodone HCl (Roxicodone) 5 mg PO Q6H PRN PRN Reason: Pain, Moderate (4-6) Last Admin: 11/29/18 01:09 Dose: 5 mg Documented by: Oxycodone HCl (Roxicodone) 10 mg PO Q6H PRN PRN Reason: Pain , Severe (7-10) Last Admin: 12/02/18 02:55 Dose: 10 mg Documented by: Pantoprazole Sodium (Protonix) 20 mg PO QDAY [facility] Last Admin: 12/02/18 07:56 Dose: 20 mg Documented by: Polyethylene Glycol (Miralax [id number]) 17 gm PO QDAY PRN PRN Reason: Constipation Pravastatin Sodium (Pravachol) 20 mg PO QHS [facility] Last Admin: 12/01/18 22:16 Dose: 20 mg Documented by: Prednisone (Deltasone) 10 mg PO QDAY [facility] Stop: 12/06/18 09:59 Last Admin: 12/02/18 07:56 Dose: 10 mg Documented by: Spironolactone (Aldactone) 25 mg PO QDAY [facility] Last Admin: 12/02/18 07:56 Dose: 25 mg Documented by: Zinc Sulfate (Zinc Sulfate) 220 mg PO QDAY [facility] Last Admin: 12/02/18 07:56 Dose: 220 mg Documented by: Review of Systems All systems: negative (as per HPI- denies all significant review of systems) Exam - Vital Signs Vital signs: Vital Signs Temp Pulse Resp BP Pulse Ox 97.6 F 70 17 121/72 99 11/25/18 20:27 11/25/18 20:27 11/25/18 20:27 11/25/18 20:27 11/25/18 20:27 - General Appearance General appearance: well-developed, well-nourished, appears stated age EENT: ATNC, PERRL, mucous membranes moist Neck: Present: neck supple, trachea midline Respiratory: Clear to Ascultation Heart: regular, normal heart rate, S1S2, no murmurs Gastrointestinal: Present: normal. Absent: tenderness, distended, masses, guarding Integumentary: no rash Neurologic: no focal deficit, alert and oriented x3 Musculoskeletal: Absent: deformities, joint swelling Psychiatric: mood/affect appropriate, cooperative Results - Lab Results 12/02/18 06:53 12/02/18 06:53 Most recent lab results Calcium 8.0 mg/dL (8.4-10.2) L 12/02/18 06:53 Assessment and Plan Assessment: -CKD stage 2- suspect he has CKD in setting of DM/HTN with regular fluctuations in eGFR between 50-70 ml/min. -Hypertension -Diabetes Mellitus type 2 -History of Left and Right BKA -MRSA bacteremia: continue vancomycin through 12/05 This is a 48 year old man with history of DM, HTN, PVD who presents for inpatient rehab, found to have difficult to control HTN and abnormal renal func tion. Plan: -discussed importance of strong BP control and symptoms concerning for hypertensive urgency/emergency. Goal BP<130/80 -low salt diet, lifestyle modifications -will start lisinopril 20mg and stop spironolactone (recently started). Can titrate up to 40mg. Ideally, patient will be on ERIKA/ARB + thiazide and can wean off clonidine or hydralazine to eliminate polypharmacy. Will follow daily labs while inpatient -urine protein/creatinine to quantify for proteinuria -renal ultrasound to evaluate renal anatomy, chronicity of injury -will defer secondary HTN workup to outpatient -send PTH, P to ensure no secondary hyperparathyroidism in setting of CKD -diabetic control per hospital team; SGLT-2 inhibitor may be consider outpatient given results of [facility] trial -continue statin -hold off on sodium bicarbonate given relative hypocalcemia -will ensure follow up after discharge -avoidance of nephrotoxins, renally dose medications if applicable
[2018-12-02] MEDS: ZESTRIL PO SCH (16:07)
--- NOTE | 2018-12-02 17:20 | Ultrasound Report ---
US renal BILAT INDICATION: chronic kidney disease. COMPARISON: None available. FINDINGS: Right kidney: 12.9 cm in length. No hydronephrosis or cortical thinning. Small simple 1.7 cm cyst i n lower pole. Left kidney: 13.4 cm in length. No hydronephrosis or cortical thinning. 1.1 cm stone in the lower p ole. Urinary Bladder: No significant abnormality. Additional Findings: None. IMPRESSION: 1. No hydronephrosis or cortical thinning of either kidney. 2. Nonobstructing 1 submeters stone in lower pole of the left kidney. 3. Small simple cyst in lower pole of the right kidney. Signer Name: Ad Rosario MD Signed: 12/02/2018 5:15 PM Workstation Name: [id number]
[2018-12-02] MEDS: LANTUS SUB-Q SCH (21:36)
[2018-12-02] MEDS: PRAVACHOL PO SCH (21:36)
[2018-12-02] MEDS: APRESOLINE IV PRN (21:44)
[2018-12-02] MEDS: VANCOMYCIN/NS 1 GM/250 ML 1 GM/250 ML BAG IV SCH (23:11)
[2018-12-03] MEDS: CATAPRES PO SCH ×3 (05:38→21:17)
[2018-12-03] MEDS: CARDIZEM PO SCH ×3 (05:38→18:22)
[2018-12-03 07:26] LABS: BUN/Creatinine Ratio 19; Blood Urea Nitrogen 27 mg/dL (9-20); Calcium 7.9 mg/dL (8.4-10.2); Hemolysis Index 2
[2018-12-03 07:43] LABS: Bacteria,Urine 1+ /HPF (Negative); Bilirubin,Urine NEG (Negative); Blood,Urine NEG (Negative); Color,Urine Yellow (Yellow); Mucus,Urine FEW /HPF; Urobilinogen,Urine < 2.0 mg/dL (<2.0)
[2018-12-03 07:44] LABS: Protein,Urine >2000 mg dL mg/dL (Negative)
[2018-12-03] MEDS: HEPARIN SUB-Q SCH ×3 (08:21→22:28)
--- NOTE | 2018-12-03 08:37 | Progress Note ---
Subjective Date of service: 12/03/18 Principal diagnosis: Left BKA, ADL and mobility deficits Interval history: 48-year-old male who presented to the ER with pain and swelling with purulent drainage from the left diabetic foot wound. He had a recent medication of this second digit. He underwent a left BKA on November 20. Blood cultures were positive for MRSA and was started on IV vancomycin which she will continue through 12/05. Initial blood cultures and postop blood cultures were positive as stated but follow-up blood cultures on November 22 were negative. Patient has a right BKA and has been ambulatory with a prosthesis. States that he recently was scheduled to see his etcher hand for a retrofit. Oddly enough he has a different prosthesis for each leg. I advised him it would be hernandez to have the same etcher hand for both legs and the choice would be up to him as far as which one he wants to continue with. Patient states that he did have phantom pain and sensation in the right lower extremity with his prior amputation from approximately 2011 however he has not experienced any phantom sensation or phantom pain currently with his left amputation. Dressing was taken down with therapy and no malodorous or purulent discharge was noted. He did have some slight bloody drainage at the anterior medial aspect on the staple line. Participating in therapy and making progress. +BM with some diarrhea. Denies palpitations, dyspnea, cough, N/V, or joint pain. Pain controlled with medications. Left wrist better today wearing pressure glove. BP has been difficult to control. Otherwise doing well. All records, vitals, labs and medications were reviewed. No other issues per patient, nursing or therapy. Objective - Exam Narrative Exam: MUSCULOSKELETAL SPECIALTY EXAM CONSTITUTIONAL: Well developed, well nourished, appropriately groomed, obese EENT: EOMI. Hearing intact to soft voice. No drainage seen, O/P clear RESPIRATORY: Clear to auscultation bilaterally, no increased work of breathing CARDIOVASCULAR: Regular Rate/ Rhythm, no swelling, edema or tenderness in BUE or BLE. All extremities warm. GI: + bowel sounds, soft, NTTP, nondistended. INTEGUMENTARY: Normal, no lesion, rash, masses or bruising noted in extremities, except for surgical wound on left lower extremity, ne intact, wrapped MUSCULOSKELETAL: BUE and BLE normal without defect, crepitus, subluxation, effusion, arthritic changes or TTP except for bilateral BKA. Slight left wrist swelling, NTTP, normal temp RUE 4+/5, LUE 4-/5, both good ROM, with normal tone. BLE 4/5 good ROM, with normal tone NEURO: CN 2-12 grossly intact. Sensation intact in all extremities. No tremor noted in 4 extremities. POSTURE and GAIT: Sitting posture good. Balance appears reasonable. Will not be able to assess g ait due to defect in prosthesis. Squat pivot transfer with prosthetic leg reasonable PSYCH: Alert, oriented x3, affect appears normal. Insight appears intact. - Constitutional Vitals: Vital Signs - 12hr 12/02/18 12/02/18 12/03/18 23:17 23:57 04:37 Temperature 36.6 C 36.4 C L Pulse Rate 76 66 Respiratory 20 20 Rate Blood Pressure 185/95 175/86 152/84 Blood Pressure [Left] O2 Sat by Pulse 99 99 Oximetry 12/03/18 07:30 Temperature 36.1 C L Pulse Rate 65 Respiratory 16 Rate Blood Pressure Blood Pressure 141/78 [Left] O2 Sat by Pulse 99 Oximetry - Allied health notes Allied health notes reviewed: nursing, PT, OT FIMS assessment as documented by PT/OT/ST: Grooming Patient cleans teeth/dentures: Yes Patient joseph/brushes hair: Yes Patient washes, rinses and Yes dries face: Patient washes, rinses and Yes dries hands: Patient performs (no make-up/ 07/17 (100%) shaving): Grooming FIM Score 5. Supervision ([place] applies toothpaste or opens containers.) Toileting Toileting Device Commode over Toilet Patient able to: Adjust clothes before,Clean self,Adjust clothes after Patient able to perform: 3/3 (100%) Toileting FIM Score 6. Modified [place] (Needs equip. or prosth ./orth.) Social interaction/Memory/Problem solving Social Interaction FIM Score 6. Mod. [place] (Mostly appropriate. May need meds. No supv.) Memory FIM Score 6. Modified [place](Mild difficulty remembering people/routines.) Problem Solving FIM Score 7. Complete [place] (Solves complex problems. Self corrects.) Transfers Mode of Locomotion: Wheelchair Bed/Chair/Wheelchair Transfers 5. Supervision (Needs supv. or set-up for FIM Score sliding board, foot rests.) Toilet Transfers FIM Score 3. Moderate Assistance (Patient = 50% or more. Some lifting.) Patient transferred to: Shower Shower Transfers FIM Score 5. Supervision (Needs supv. or set-up with device.) Locomotion- Stairs Stairs FIM Score 0. Activity does not occur Locomotion- walk/wheelchair Most Frequent Mode of Wheelchair Locomotion: Walking FIM Score 0. Activity does not occur Wheelchair Propulsion Distance 200 Wheelchair FIM Score 5. Supervision (Minimum 150 ft. supv./cues or 50 ft. independently.) Eating Eating FIM Score 6. Modified [place] (Special consistency or uses device.) Dressing-Upper body Patient retrieves clothing Yes items: Patient applies/removes UE Yes prosthesis or orthosis: Upper Body Dressing FIM Score 6. Modified [place] (Needs equipment, velcro or pros./orth.) Dressing-lower body Patient retrieves clothing Yes items: Patient applies/removes LE Yes prosthesis or orthosis: Lower Body Dressing FIM Score 6. Modified [place] (Needs equipment, velcro or pros./orth.) - Labs CBC & Chem 7: 12/02/18 06:53 12/03/18 06:33 Labs: Laboratory Results - last 72 hr 11/30/18 11/30/18 11/30/18 11:56 17:34 21:07 WBC RBC Hgb Hct MCV MCH MCHC RDW Plt Count Sodium Potassium Chloride Carbon Dioxide Anion Gap BUN Creatinine Estimated GFR BUN/Creatinine Ratio Glucose POC Glucose 124 H 193 H 311 H Calcium Phosphorus PTH Intact Urine Color Urine Turbidity Urine pH Ur Specific [place] Urine Protein Urine Glucose (UA) Urine Ketones Urine Blood Urine Nitrite Urine Bilirubin Urine Urobilinogen Ur Leukocyte Esterase Urine WBC (Auto) Urine RBC (Auto) Urine Bacteria (Auto) Urine Mucus Vancomycin Trough 12/01/18 12/01/18 12/01/18 06:50 06:50 13:11 WBC 10.1 RBC 3.66 Hgb 9.5 L Hct 29.7 L MCV 81 L MCH 26 L MCHC 32 RDW 19.0 H Plt Count 428 Sodium 139 Potassium 4.3 Chloride 109.1 H Carbon Dioxide 19 L Anion Gap 15 BUN 36 H Creatinine 1.6 H Estimated GFR 57 BUN/Creatinine Ratio 23 Glucose 156 H POC Glucose 197 H Calcium 8.0 L Phosphorus PTH Intact Urine Color Urine Turbidity Urine pH Ur Specific [place] Urine Protein Urine Glucose (UA) Urine Ketones Urine Blood Urine Nitrite Urine Bilirubin Urine Urobilinogen Ur Leukocyte Esterase Urine WBC (Auto) Urine RBC (Auto) Urine Bacteria (Auto) Urine Mucus Vancomycin Trough 12/01/18 12/01/18 12/01/18 16:58 20:20 21:48 WBC RBC Hgb Hct MCV MCH MCHC RDW Plt Count Sodium Potassium Chloride Carbon Dioxide Anion Gap BUN Creatinine Estimated GFR BUN/Creatinine Ratio Glucose POC Glucose 240 H 300 H Calcium Phosphorus PTH Intact Urine Color Urine Turbidity Urine pH Ur Specific [place] Urine Protein Urine Glucose (UA) Urine Ketones Urine Blood Urine Nitrite Urine Bilirubin Urine Urobilinogen Ur Leukocyte Esterase Urine WBC (Auto) Urine RBC (Auto) Urine Bacteria (Auto) Urine Mucus Vancomycin Trough 15.3 12/02/18 12/02/18 12/02/18 06:53 06:53 07:56 WBC 9.8 RBC 3.53 L Hgb 9.3 L Hct 28.8 L MCV 81 L MCH 26 L MCHC 32 RDW 19.3 H Plt Count 343 Sodium 138 Potassium 4.3 Chloride 108.0 H Carbon Dioxide 21 L Anion Gap 13 BUN 31 H Creatinine 1.3 Estimated GFR > 60 BUN/Creatinine Ratio 24 Glucose 231 H POC Glucose 206 H Calcium 8.0 L Phosphorus PTH Intact Urine Color Urine Turbidity Urine pH Ur Specific [place] Urine Protein Urine Glucose (UA) Urine Ketones Urine Blood Urine Nitrite Urine Bilirubin Urine Urobilinogen Ur Leukocyte Esterase Urine WBC (Auto) Urine RBC (Auto) Urine Bacteria (Auto) Urine Mucus Vancomycin Trough 12/02/18 12/02/18 12/02/18 12:47 16:42 20:22 WBC RBC Hgb Hct MCV MCH MCHC RDW Plt Count Sodium Potassium Chloride Carbon Dioxide Anion Gap BUN Creatinine Estimated GFR BUN/Creatinine Ratio Glucose POC Glucose 136 H 250 H 208 H Calcium Phosphorus PTH Intact Urine Color Urine Turbidity Urine pH Ur Specific [place] Urine Protein Urine Glucose (UA) Urine Ketones Urine Blood Urine Nitrite Urine Bilirubin Urine Urobilinogen Ur Leukocyte Esterase Urine WBC (Auto) Urine RBC (Auto) Urine Bacteria (Auto) Urine Mucus Vancomycin Trough 12/03/18 12/03/18 12/03/18 00:35 01:09 06:33 WBC RBC Hgb Hct MCV MCH MCHC RDW Plt Count Sodium 140 Potassium 4.3 Chloride 109.7 H Carbon Dioxide 21 L Anion Gap 14 BUN 27 H Creatinine 1.4 Estimated GFR > 60 BUN/Creatinine Ratio 19 Glucose 120 H POC Glucose Calcium 7.9 L Phosphorus 2.30 L PTH Intact 63.35 Urine Color Urine Turbidity Urine pH Ur Specific [place] Urine Protein Urine Glucose (UA) Urine Ketones Urine Blood Urine Nitrite Urine Bilirubin Urine Urobilinogen Ur Leukocyte Esterase Urine WBC (Auto) Urine RBC (Auto) Urine Bacteria (Auto) Urine Mucus Vancomycin Trough 12/03/18 Unknown WBC RBC Hgb Hct MCV MCH MCHC RDW Plt Count Sodium Potassium Chloride Carbon Dioxide Anion Gap BUN Creatinine Estimated GFR BUN/Creatinine Ratio Glucose POC Glucose Calcium Phosphorus PTH Intact Urine Color Yellow Urine Turbidity Clear Urine pH 5.0 Ur Specific [place] 1.014 Urine Protein >2000 mg dl Urine Glucose (UA) 50 Urine Ketones Neg Urine Blood Neg Urine Nitrite Neg Urine Bilirubin Neg Urine Urobilinogen < 2.0 Ur Leukocyte Esterase Neg Urine WBC (Auto) 1.0 Urine RBC (Auto) 4.0 Urine Bacteria (Auto) 1+ Urine Mucus Few Vancomycin Trough Assessment and Plan Left BKA: Continue post surgical care with dressing changes every other day and when necessary. Monitor for any signs of wound infection. [place] to be removed in 6-8 weeks per surgery. Monitor for any signs of phantom pain or sensation. Mechanical Cad Designer when able. Advised patient to choose one etcher hand for both legs. Continue stump protector. Right BKA: In process of having prosthesis remade. Hypertension: Continue medications monitor for normotension adjust as needed. Max dose of coreg, clonidine and now diltiazem. Start hydralazine with prn. Nephrology consulted. Diabetes type 2, poorly controlled: Continue Carb controlled diet, continue insulin and adjust as needed. Outside hospital A1c 10.0. Anemia: Mixed chronic and postacute blood loss. Monitor CBC will check anemia workup and replace needed components. GERD: Continue Protonix monitor MRSA bacteremia: Last blood culture performed on November 22 was negative. This is post amputation of November 20. We'll continue to monitor and will DC isolation. Continue vancomycin through 12/05. Hyperlipidemia: Continue statin Monitor leukocytosis and renal function GLU - elevated due to prednisone taper - SSI d/c colchicine - feels like ganglion cyst today since swelling has decreased. Pain level not c/w gout Z73.6 ADL dysfunction: OT will work on improving ability to perform ADLs (including assistive devices) to increase independence and decrease caregiver burden and improve functional transfers and mobility training. R26.2 Difficulty walking: PT will work on gait training and proper use of assistive devices and advance as appropriate to use of stairs and outside ambulation on uneven surfaces. R26.81 Unsteadiness on feet: PT will work on improving static and dynamic sitting and standing balance as well as proper use of assistive devices to decrease risk of falls. R26.89 Abnormality of gait: PT will work to improve safety and efficiency of gait through neuromotor training and gait training along with instruction on proper use of assistive devices. M62.81 Muscle weakness: PT & OT will work on strengthening exercises to improve functional strength including mixture of closed and open kinetic chain exercise s. R53.81 Debility: PT & OT will work on improving overall functional status to improve participation with ADLs, mobility and social involvement. R53.83 Fatigue: PT & OT will work on improving endurance through aerobic exercises and therapeutic activity while monitoring patients tolerance for activity and vital signs as needed. DVT ppx: Heparin 3 times a day Pain: Continue physical modalities in therapy and pain medications as needed to achieve functional pain control. Currently well controlled with Roxicodone as dosed Sleep: Monitor and address as needed. Bowel: Monitor and address as needed. Appetite: Monitor and address as needed. Discharge planning: Pending therapy progress and care plan meeting. Will continue discussion with therapy team, SW, patient and family. Restrictions/ Precautions: Falls WB status: FWB Functional Hx: ADLs: Independent Cognition: Independent Mobility: Walking independently with right lower extremity prosthesis Barriers to Discharge: Decreased mobility and ability to perform self care, balance deficits, weakness, decreased endurance and new second BKA Estimated Length of Stay: 14-18 days Discharge Destination: Home with family
[2018-12-03] MEDS: HumaLOG SUB-Q SCH ×4 (09:00→22:47)
[2018-12-03] MEDS ORDERED: APRESOLINE PO SCH (09:06)
[2018-12-03] MEDS: COREG PO SCH ×2 (09:17→22:28)
[2018-12-03] MEDS: ZINC SULFATE PO SCH (09:17)
[2018-12-03] MEDS: ECOTRIN PO SCH (09:17)
[2018-12-03] MEDS: VITAMIN C PO SCH (09:17)
[2018-12-03] MEDS: ZESTRIL PO SCH (09:18)
[2018-12-03] MEDS: PROTONIX PO SCH (09:18)
[2018-12-03] MEDS: DELTASONE PO SCH (09:19)
[2018-12-03] MEDS: APRESOLINE PO SCH ×3 (09:25→22:26)
[2018-12-03] MEDS: NIZORAL TP SCH ×2 (09:28→22:31)
[2018-12-03] MEDS ORDERED: LOMOTIL PO PRN (10:00)
[2018-12-03 12:14] LABS: Creatinine,Urine 73.4 mg/dL (0.1-20.0)
[2018-12-03] MEDS: FLONASE NS SCH (12:33)
[2018-12-03 12:37] LABS: Protein/Creatinine Ratio,Urine 6.31
--- NOTE | 2018-12-03 14:40 | Progress Note ---
Assessment and Plan Assessment: -CKD stage 2- suspect he has CKD in setting of DM/HTN with regular fluctuations in eGFR between 50-70 ml/min. Ultrasound shows normal sized kidneys -nephrotic range proteinuria (6.3g on spot check)- likely related to DM, however will perform secondary workup and consider biopsy outpatient -kidney stone- 1.1cm non-obstructing stone noted on ultrasound -Hypertension- improving but still not at goal <130/80 -Diabetes Mellitus type 2 -History of Left and Right BKA -MRSA bacteremia: continue vancomycin through 12/05 This is a 48 year old man with history of DM, HTN, PVD who presents for inpatient rehab, found to have difficult to control HTN and abnormal renal function. Plan: -discussed importance of strong BP control and symptoms concerning for hypertensive urgency/emergency. Goal BP<130/80 -continue low salt diet, lifestyle modifications -continue lisinopril 20mg; now off spironolactone (recently started). Can ti trate lisinopril up to 40mg while weaning other medications off. Ideally, patient will be on ERIKA/ARB + thiazide and can wean off clonidine or hydralazine to eliminate polypharmacy. Will follow daily labs while inpatient -given proteinuria, will send SPEP, free light chains, HIV, hepatitis to [facility] secondary causes of nephrotic range proteinuria -will defer secondary HTN workup to outpatient -diabetic control per hospital team; SGLT-2 inhibitor may be considered outpatient given results of [facility]ED[facility] trial -continue statin given ASCVD risk -hold off on sodium bicarbonate given relative hypocalcemia -will ensure follow up after discharge -avoidance of nephrotoxins, renally dose medications if applicable Subjective Date of service: 12/03/18 Principal diagnosis: Left BKA, ADL and mobility deficits Interval history: no acute events overnight. Tolerated first dose of lisinopril without issues. no issues with cough, angioedema noted. no dyspnea, chest pain, nausea, vomiting noted Objective - Exam Narrative Exam: General appearance: well-developed, well-nourished, appears stated age EENT: ATNC, PERRL, mucous membranes moist Neck: Present: neck supple, trachea midline Respiratory: Clear to Auscultation Heart: regular, normal heart rate, S1S2, no murmurs Gastrointestinal: Present: normal. Absent: tenderness, distended, masses, guarding Integumentary: no rash Neurologic: no focal deficit, alert and oriented x3 Musculoskeletal: Absent: deformities, joint swelling Psychiatric: mood/affect appropriate, cooperative - Vital Signs Vital signs: Vital Signs - 12hr 12/03/18 12/03/18 12/03/18 04:37 07:30 12:01 Temperature 97.5 F L 97 F L 98.1 F Pulse Rate 66 65 61 Respiratory 20 16 20 Rate Blood Pressure 152/84 160/84 Blood Pressure 141/78 [Left] O2 Sat by Pulse 99 99 99 Oximetry - Lab 12/02/18 06:53 12/03/18 06:33 Most recent lab results Calcium 7.9 mg/dL (8.4-10.2) L 12/03/18 06:33 Phosphorus 2.30 mg/dL (2.5-4.5) L 12/03/18 00:35 73.4 mg/dL (0.1-20.0) H 12/03/18 Unknown 463 mg/dL (5-11.8) H 12/03/18 Unknown Medications & Allergies - Medications Allergies/Adverse Reactions: Allergies metformin Allergy (Verified 11/25/18 20:02) Anaphylaxis Penicillins Allergy (Verified 11/25/18 20:01) Anaphylaxis Home Medications: Home Medications Medication Instructions Recorded Confirmed Last Taken Type Acetaminophen [Acetaminophen ER] 650 mg PO Q6HR PRN 11/26/18 11/26/18 Unknown History Ascorbic Acid [Vitamin C] 250 mg PO QDAY 11/26/18 11/26/18 11/24/18 09:00 History Carvedilol [Coreg] 25 mg PO BID 11/26/18 11/26/18 11/25/18 09:05 History Clonidine HCl [Catapres] 0.3 mg PO TID 11/26/18 11/26/18 11/25/18 14:40 History Deltasone 40 mg PO QDAY 11/26/18 11/26/18 11/25/18 09:00 History Famotidine [Pepcid] 20 mg PO BID 11/26/18 11/26/18 11/25/18 09:00 History Heparin Sodium,Porcine [Heparin 5,000 unit SUB-Q Q8HR 11/26/18 11/26/18 11/25/18 09:00 History Sodium 5000 unit/ml 1ml vial] Insulin Detemir [Levemir VIAL] 30 units SC QHS 11/26/18 11/26/18 11/25/18 21:45 History NIFEdipine XL [Procardia Xl] 60 mg PO QDAY 11/26/18 11/26/18 11/24/18 09:00 History Pravastatin 20 mg QDAY 11/26/18 11/26/18 11/25/18 21:45 History Vancomycin/0.9 % Sod Chloride 1,500 mg IV Q24HR 11/26/18 11/26/18 11/24/18 21:45 History [Vanco 1.5 gm/250 ml-0.9% NaCl] Zinc Sulfate 220 mg PO QDAY 11/26/18 11/26/18 11/25/18 09:00 History dilTIAZem HCl [Diltiazem 24Hr ER 120 mg PO QDAY 11/26/18 11/26/18 11/26/18 00:00 History (Xr)] oxyCODONE [roxiCODONE] 5 mg PO Q4HR PRN 11/26/18 11/26/18 11/25/18 09:00 History Active Medications: Generic Name Dose Route Start Last Admin Trade Name Freq PRN Reason Stop Dose Admin Acetaminophen 650 mg 11/25/18 16:28 Tylenol PO Q6H PRN Non Cardiac Pain or Temp>100.5 Ascorbic Acid 250 mg 11/26/18 08:00 12/03/18 09:17 Vitamin C PO 250 mg QDAY EFREN Administration Aspirin 325 mg 11/26/18 08:00 12/03/18 09:17 Ecotrin PO 325 mg QDAY EFREN Administration Bisacodyl 10 mg 11/25/18 16:28 Dulcolax [place] QDAY PRN Constipation Carvedilol 25 mg 11/25/18 22:00 12/03/18 09:17 Coreg PO 25 mg BID EFREN Administration Clonidine HCl 0.3 mg 11/25/18 20:00 12/03/18 12:34 Catapres PO 0.3 mg Q8H EFREN Administration Dextrose 50 ml 11/25/18 16:08 D50w (25gm) Syringe IV PRN PRN Hypoglycemia Diltiazem HCl 90 mg 11/29/18 00:00 12/03/18 12:34 Cardizem PO 90 mg Q6HR EFREN Administration Diphenoxylate HCl/Atropine 1 tab 12/03/18 10:00 Lomotil PO Q6H PRN Diarrhea Fluticasone Propionate 100 mcg 12/03/18 10:00 12/03/18 12:33 Flonase NS 100 mcg QDAY EFREN Administration Heparin Sodium (Porcine) 5,000 unit 11/25/18 22:00 12/03/18 08:21 Heparin SUB-Q 5,000 unit Q8HR EFREN Administration Hydralazine HCl 10 mg 11/28/18 12:30 12/02/18 21:44 Apresoline IV 10 mg Q4H PRN Administration Hypertension Hydralazine HCl 50 mg 12/03/18 10:00 12/03/18 09:25 Apresoline PO 50 mg Q8HR EFREN Administration Vancomycin HCl 1 gm in 250 mls @ 167.007 mls/hr 11/28/18 22:00 12/02/18 23:11 Vancomycin/Ns 1 Gm/250 Ml IV 12/06/18 23:59 167 mls/hr Q24H EFREN Administration Insulin Glargine 35 units 11/25/18 21:00 12/02/18 21:36 Lantus SUB-Q 35 units QHS EFREN Administration Insulin Human Lispro 0 unit 11/25/18 22:00 12/03/18 12:40 Humalog SUB-Q 4 unit ACHS EFREN Administration Protocol Ketoconazole 1 applic 12/01/18 22:00 12/03/18 09:28 Nizoral TP 12/08/18 21:59 1 applic BID EFREN Administration Lisinopril 20 mg 12/02/18 15:00 12/03/18 09:18 Zestril PO 20 mg QDAY EFREN Administration Ondansetron HCl 4 mg 11/25/18 16:28 Zofran Odt PO Q8H PRN Nausea And Vomiting Oxycodone HCl 5 mg 11/25/18 16:32 11/29/18 01:09 Roxicodone PO 5 mg Q6H PRN Administration Pain, Moderate (4-6) Oxycodone HCl 10 mg 11/28/18 15:10 12/02/18 23:16 Roxicodone PO 10 mg Q6H PRN Administration Pain , Severe (7-10) Pantoprazole Sodium 20 mg 11/26/18 08:00 12/03/18 09:18 Protonix PO 20 mg QDAY EFREN Administration Polyethylene Glycol 17 gm 11/25/18 16:28 Miralax 3350 PO QDAY PRN Constipation Pravastatin Sodium 20 mg 11/25/18 21:00 12/02/18 21:36 Pravachol PO 20 mg QHS EFREN Administration Prednisone 10 mg 12/01/18 08:00 12/03/18 09:19 Deltasone PO 12/06/18 09:59 10 mg QDAY EFREN Administration Zinc Sulfate 220 mg 11/26/18 08:00 12/03/18 09:17 Zinc Sulfate PO 220 mg QDAY EFREN Administration
[2018-12-03] MEDS: APRESOLINE IV PRN (18:26)
[2018-12-03] MEDS: PRAVACHOL PO SCH (22:26)
[2018-12-03] MEDS: LANTUS SUB-Q SCH (22:27)
[2018-12-03] MEDS: ROXICODONE PO PRN (22:48)
[2018-12-03] MEDS: VANCOMYCIN/NS 1 GM/250 ML 1 GM/250 ML BAG IV SCH (23:32)
[2018-12-04] MEDS: CARDIZEM PO SCH ×5 (01:33→17:17)
[2018-12-04 02:45] LABS: Hepatitis B Surface Antigen Non-Reactive (Negative); Hepatitis C Virus Antibody Non-Reactive (NonReactive)
[2018-12-04] MEDS: CATAPRES PO SCH ×3 (04:43→21:53)
[2018-12-04] MEDS: APRESOLINE PO SCH ×3 (06:24→21:52)
[2018-12-04] MEDS: HEPARIN SUB-Q SCH ×3 (06:25→21:54)
--- NOTE | 2018-12-04 07:04 | Progress Note ---
Subjective Date of service: 12/04/18 Principal diagnosis: Left BKA, ADL and mobility deficits Interval history: 48-year-old male who presented to the ER with pain and swelling with purulent drainage from the left diabetic foot wound. He had a recent medication of this second digit. He underwent a left BKA on November 20. Blood cultures were positive for MRSA and was started on IV vancomycin which she will continue through 12/05. Initial blood cultures and postop blood cultures were positive as stated but follow-up blood cultures on November 22 were negative. Patient has a right BKA and has been ambulatory with a prosthesis. States that he recently was scheduled to see his wind up operator for a retrofit. Oddly enough he has a different prosthesis for each leg. I advised him it would be hernandez to have the same wind up operator for both legs and the choice would be up to him as far as which one he wants to continue with. Patient states that he did have phantom pain and sensation in the right lower extremity with his prior amputation from approximately 2011 however he has not experienced any phantom sensation or phantom pain currently with his left amputation. Dressing was taken down with therapy and no malodorous or purulent discharge was noted. He did have some slight bloody drainage at the anterior medial aspect on the staple line. Participating in therapy and making progress. +BM, diarrhea resolved resolved. Denies palpitations, dyspnea, cough, N/V, or joint pain. Pain controlled with medications. Left wrist better today wearing pressure glove. BP has been difficult to control. Hydralazine reduced, BP elevated. Has required prn IV hydralazine. Nephrology has transitioned to ERIKA and is decreasing hydralazine. He has encountered difficulty with the wind up operator coming out to perform repairs on his prosthesis as well as for casting. I personally called the company to request that they come out and assess him and explained that we are a acute rehabilitation facility and that we work with wind up operator all the time. I am waiting for them to return the call to see if they will do anything to repair his prosthesis. If not he may end up changing to an alternative company which was signed for his new leg initially. We'll wait until tomorrow to see if we hear anything. He can continue making progress with a functioning prosthesis which will allow us to ambulate with him using a rolling walker. Otherwise doing well. Discussed in team conference. Patient is being limited by a nonfunctional prosthesis. His locking mechanism does not engage the patient even though he has attempted to clean and lubricate it. If we cannot get a functioning prosthesis that he may be close to his limit of what he can do functionally. He does have stairs at home and we will need to work with him on the getting up and down those stairs via a method of scooting without a functioning prosthesis. If we can get a functioning prosthesis that we can work with him on ambulation as well as negotiating stairs with the one prosthesis until he is ready to accept the second prosthesis. We will plan to discharge on , 12/11/2018. That also gives us a little longer to control his blood pressure which has proved to be rather difficult. All records, vitals, labs and medications were reviewed. No other issues per patient, nursing or therapy. Objective - Exam Narrative Exam: MUSCULOSKELETAL SPECIALTY EXAM CONSTITUTIONAL: Well developed, well nourished, appropriately groomed, obese EENT: EOMI. Hearing intact to soft voice. No drainage seen, O/P clear RESPIRATORY: Clear to auscultation bilaterally, no increased work of breathing CARDIOVASCULAR: Regular Rate/ Rhythm, no swelling, edema or tenderness in BUE or BLE. All extremities warm. GI: + bowel sounds, soft, NTTP, nondistended. INTEGUMENTARY: Normal, no lesion, rash, masses or bruising noted in extremities, except for s urgical wound on left lower extremity, ne intact, wrapped MUSCULOSKELETAL: BUE and BLE normal without defect, crepitus, subluxation, effusion, arthritic changes or TTP except for bilateral BKA. Slight left wrist swelling, NTTP, normal temp RUE 4+/5, LUE 4-/5, both good ROM, with normal tone. BLE 4/5 good ROM, with normal tone NEURO: CN 2-12 grossly intact. Sensation intact in all extremities. No tremor noted in 4 extremities. POSTURE and GAIT: Sitting posture good. Balance appears reasonable. Will not be able to assess gait due to defect in prosthesis. Squat pivot transfer with prosthetic leg reasonable PSYCH: Alert, oriented x3, affect appears normal. Insight appears intact. - Constitutional Vitals: Vital Signs - 12hr 12/03/18 12/04/18 12/04/18 19:20 00:25 04:30 Temperature 36.6 C 36.3 C L 36.6 C Pulse Rate 64 69 83 Respiratory 16 18 18 Rate Blood Pressure 141/69 175/82 Blood Pressure 134/69 [Left] O2 Sat by Pulse 99 98 99 Oximetry - Allied health notes Allied health notes reviewed: nursing, PT, OT FIMS assessment as documented by PT/OT/ST: Grooming Patient cleans teeth/dentures: Yes Patient joseph/brushes hair: Yes Patient washes, rinses and Yes dries face: Patient washes, rinses and Yes dries hands: Patient performs (no make-up/ 4/4 (100%) shaving): Grooming FIM Score 5. Supervision ([place] applies toothpaste or opens containers.) Toileting Toileting Device Commode over Toilet Patient able to: Adjust clothes before,Clean self,Adjust clothes after Patient able to perform: 3/3 (100%) Toileting FIM Score 6. Modified [place] (Needs equip. or prosth ./orth.) Social interaction/Memory/Problem solving Social Interaction FIM Score 6. Mod. [place] (Mostly appropriate. May need meds. No supv.) Memory FIM Score 6. Modified [place](Mild difficulty remembering people/routines.) Problem Solving FIM Score 7. Complete [place] (Solves complex problems. Self corrects.) Transfers Mode of Locomotion: Wheelchair Bed/Chair/Wheelchair Transfers 5. Supervision (Needs supv. or set-up for FIM Score sliding board, foot rests.) Toilet Transfers FIM Score 3. Moderate Assistance (Patient = 50% or more. Some lifting.) Patient transferred to: Shower Shower Transfers FIM Score 5. Supervision (Needs supv. or set-up with device.) Locomotion- Stairs Stairs FIM Score 0. Activity does not occur Locomotion- walk/wheelchair Most Frequent Mode of Wheelchair Locomotion: Walking FIM Score 0. Activity does not occur Wheelchair Propulsion Distance 200 Wheelchair FIM Score 5. Supervision (Minimum 150 ft. supv./cues or 50 ft. independently.) Eating Eating FIM Score 6. Modified [place] (Special consistency or uses device.) Dressing-Upper body Patient retrieves clothing Yes items: Patient applies/removes UE Yes prosthesis or orthosis: Upper Body Dressing FIM Score 6. Modified [place] (Needs equipment, velcro or pros./orth.) Dressing-lower body Patient retrieves clothing Yes items: Patient applies/removes LE Yes prosthesis or orthosis: Lower Body Dressing FIM Score 6. Modified [place] (Needs equipment, velcro or pros./orth.) - Labs CBC & Chem 7: 12/02/18 06:53 12/04/18 09:42 Labs: Laboratory Results - last 72 hr 12/01/18 12/01/18 12/01/18 06:50 06:50 13:11 WBC 10.1 RBC 3.66 Hgb 9.5 L Hct 29.7 L MCV 81 L MCH 26 L MCHC 32 RDW 19.0 H Plt Count 428 Sodium 139 Potassium 4.3 Chloride 109.1 H Carbon Dioxide 19 L Anion Gap 15 BUN 36 H Creatinine 1.6 H Estimated GFR 57 BUN/Creatinine Ratio 23 Glucose 156 H POC Glucose 197 H Calcium 8.0 L Phosphorus PTH Intact Urine Color Urine Turbidity Urine pH Ur Specific [place] Urine Protein Urine Glucose (UA) Urine Ketones Urine Blood Urine Nitrite Urine Bilirubin Urine Urobilinogen Ur Leukocyte Esterase Urine WBC (Auto) Urine RBC (Auto) Urine Bacteria (Auto) Urine Mucus Urine Creatinine Protein/Creatinin Ratio Urine Total Protein Vancomycin Trough Hepatitis A IgM Ab Hep Bs Antigen Hep B Core IgM Ab Hepatitis C Antibody HIV 1&2 Antibody Rapid HIV P24 Antigen 12/01/18 12/01/18 12/01/18 16:58 20:20 21:48 WBC RBC Hgb Hct MCV MCH MCHC RDW Plt Count Sodium Potassium Chloride Carbon Dioxide Anion Gap BUN Creatinine Estimated GFR BUN/Creatinine Ratio Glucose POC Glucose 240 H 300 H Calcium Phosphorus PTH Intact Urine Color Urine Turbidity Urine pH Ur Specific [place] Urine Protein Urine Glucose (UA) Urine Ketones Urine Blood Urine Nitrite Urine Bilirubin Urine Urobilinogen Ur Leukocyte Esterase Urine WBC (Auto) Urine RBC (Auto) Urine Bacteria (Auto) Urine Mucus Urine Creatinine Protein/Creatinin Ratio Urine Total Protein Vancomycin Trough 15.3 Hepatitis A IgM Ab Hep Bs Antigen Hep B Core IgM Ab Hepatitis C Antibody HIV 1&2 Antibody Rapid HIV P24 Antigen 12/02/18 12/02/18 12/02/18 06:53 06:53 07:56 WBC 9.8 RBC 3.53 L Hgb 9.3 L Hct 28.8 L MCV 81 L MCH 26 L MCHC 32 RDW 19.3 H Plt Count 343 Sodium 138 Potassium 4.3 Chloride 108.0 H Carbon Dioxide 21 L Anion Gap 13 BUN 31 H Creatinine 1.3 Estimated GFR > 60 BUN/Creatinine Ratio 24 Glucose 231 H POC Glucose 206 H Calcium 8.0 L Phosphorus PTH Intact Urine Color Urine Turbidity Urine pH Ur Specific [place] Urine Protein Urine Glucose (UA) Urine Ketones Urine Blood Urine Nitrite Urine Bilirubin Urine Urobilinogen Ur Leukocyte Esterase Urine WBC (Auto) Urine RBC (Auto) Urine Bacteria (Auto) Urine Mucus Urine Creatinine Protein/Creatinin Ratio Urine Total Protein Vancomycin Trough Hepatitis A IgM Ab Hep Bs Antigen Hep B Core IgM Ab Hepatitis C Antibody HIV 1&2 Antibody Rapid HIV P24 Antigen 12/02/18 12/02/18 12/02/18 12:47 16:42 20:22 WBC RBC Hgb Hct MCV MCH MCHC RDW Plt Count Sodium Potassium Chloride Carbon Dioxide Anion Gap BUN Creatinine Estimated GFR BUN/Creatinine Ratio Glucose POC Glucose 136 H 250 H 208 H Calcium Phosphorus PTH Intact Urine Color Urine Turbidity Urine pH Ur Specific [place] Urine Protein Urine Glucose (UA) Urine Ketones Urine Blood Urine Nitrite Urine Bilirubin Urine Urobilinogen Ur Leukocyte Esterase Urine WBC (Auto) Urine RBC (Auto) Urine Bacteria (Auto) Urine Mucus Urine Creatinine Protein/Creatinin Ratio Urine Total Protein Vancomycin Trough Hepatitis A IgM Ab Hep Bs Antigen Hep B Core IgM Ab Hepatitis C Antibody HIV 1&2 Antibody Rapid HIV P24 Antigen 12/03/18 12/03/18 12/03/18 00:35 01:09 06:33 WBC RBC Hgb Hct MCV MCH MCHC RDW Plt Count Sodium 140 Potassium 4.3 Chloride 109.7 H Carbon Dioxide 21 L Anion Gap 14 BUN 27 H Creatinine 1.4 Estimated GFR > 60 BUN/Creatinine Ratio 19 Glucose 120 H POC Glucose Calcium 7.9 L Phosphorus 2.30 L PTH Intact 63.35 Urine Color Urine Turbidity Urine pH Ur Specific [place] Urine Protein Urine Glucose (UA) Urine Ketones Urine Blood Urine Nitrite Urine Bilirubin Urine Urobilinogen Ur Leukocyte Esterase Urine WBC (Auto) Urine RBC (Auto) Urine Bacteria (Auto) Urine Mucus Urine Creatinine Protein/Creatinin Ratio Urine Total Protein Vancomycin Trough Hepatitis A IgM Ab Hep Bs Antigen Hep B Core IgM Ab Hepatitis C Antibody HIV 1&2 Antibody Rapid HIV P24 Antigen 12/03/18 12/03/18 12/03/18 08:40 12:08 16:47 WBC RBC Hgb Hct MCV MCH MCHC RDW Plt Count Sodium Potassium Chloride Carbon Dioxide Anion Gap BUN Creatinine Estimated GFR BUN/Creatinine Ratio Glucose POC Glucose 142 H 206 H 174 H Calcium Phosphorus PTH Intact Urine Color Urine Turbidity Urine pH Ur Specific [place] Urine Protein Urine Glucose (UA) Urine Ketones Urine Blood Urine Nitrite Urine Bilirubin Urine Urobilinogen Ur Leukocyte Esterase Urine WBC (Auto) Urine RBC (Auto) Urine Bacteria (Auto) Urine Mucus Urine Creatinine Protein/Creatinin Ratio Urine Total Protein Vancomycin Trough Hepatitis A IgM Ab Hep Bs Antigen Hep B Core IgM Ab Hepatitis C Antibody HIV 1&2 Antibody Rapid HIV P24 Antigen 12/03/18 12/03/18 12/03/18 20:37 Unknown Unknown WBC RBC Hgb Hct MCV MCH MCHC RDW Plt Count Sodium Potassium Chloride Carbon Dioxide Anion Gap BUN Creatinine Estimated GFR BUN/Creatinine Ratio Glucose POC Glucose 253 H Calcium Phosphorus PTH Intact Urine Color Yellow Urine Turbidity Clear Urine pH 5.0 Ur Specific [place] 1.014 Urine Protein >2000 mg dl Urine Glucose (UA) 50 Urine Ketones Neg Urine Blood Neg Urine Nitrite Neg Urine Bilirubin Neg Urine Urobilinogen < 2.0 Ur Leukocyte Esterase Neg Urine WBC (Auto) 1.0 Urine RBC (Auto) 4.0 Urine Bacteria (Auto) 1+ Urine Mucus Few Urine Creatinine 73.4 H Protein/Creatinin Ratio 6.31 Urine Total Protein 463 H Vancomycin Trough Hepatitis A IgM Ab Hep Bs Antigen Hep B Core IgM Ab Hepatitis C Antibody HIV 1&2 Antibody Rapid HIV P24 Antigen 12/04/18 12/04/18 01:45 01:45 WBC RBC Hgb Hct MCV MCH MCHC RDW Plt Count Sodium Potassium Chloride Carbon Dioxide Anion Gap BUN Creatinine Estimated GFR BUN/Creatinine Ratio Glucose POC Glucose Calcium Phosphorus PTH Intact Urine Color Urine Turbidity Urine pH Ur Specific [place] Urine Protein Urine Glucose (UA) Urine Ketones Urine Blood Urine Nitrite Urine Bilirubin Urine Urobilinogen Ur Leukocyte Esterase Urine WBC (Auto) Urine RBC (Auto) Urine Bacteria (Auto) Urine Mucus Urine Creatinine Protein/Creatinin Ratio Urine Total Protein Vancomycin Trough Hepatitis A IgM Ab Non-reactive Hep Bs Antigen Non-reactive Hep B Core IgM Ab Non-reactive Hepatitis C Antibody Non-reactive HIV 1&2 Antibody Rapid Non react HIV P24 Antigen Non react Assessment and Plan Left BKA: Continue post surgical care with dressing changes every other day and when necessary. Monitor for any signs of wound infection. Ne to be removed in 6-8 weeks per surgery. Monitor for any signs of phantom pain or sensation. Consultant Intern when able. Advised patient to choose one wind up operator for both legs -having difficulty with the wind up operator that he chose continue with, may need to switch. Continue stump protector. Right BKA: In process of having prosthesis remade. Hypertension: Continue medications monitor for normotension adjust as needed. Hydralazine with prn. Nephrology consulted. Diabetes type 2, poorly controlled: Continue Carb controlled diet, continue insulin and adjust as needed. Outside hospital A1c 10.0. Anemia: Mixed chronic and postacute blood loss. Monitor CBC GERD: Continue Protonix monitor MRSA bacteremia: Last blood culture performed on November 22 was negative. This is post amputation of November 20. We'll continue to monitor and will DC isolat ion. Continue vancomycin through 12/05. Hyperlipidemia: Continue statin Monitor leukocytosis and renal function GLU - elevated due to prednisone taper - SSI d/c colchicine - feels like ganglion cyst today since swelling has decreased. Pain level not c/w gout Z73.6 ADL dysfunction: OT will work on improving ability to perform ADLs (including assistive devices) to increase independence and decrease caregiver burden and improve functional transfers and mobility training. R26.2 Difficulty walking: PT will work on gait training and proper use of assistive devices and advance as appropriate to use of stairs and outside ambulation on uneven surfaces. R26.81 Unsteadiness on feet: PT will work on improving static and dynamic sitting and standing balance as well as proper use of assistive devices to decrease risk of falls. R26.89 Abnormality of gait: PT will work to improve safety and efficiency of gait through neuromotor training and gait training along with instruction on proper use of assistive devices. M62.81 Muscle weakness: PT & OT will work on strengthening exercises to improve functional strength including mixture of closed and open kinetic chain exercises. R53.81 Debility: PT & OT will work on improving overall functional status to improve participation with ADLs, mobility and social involvement. R53.83 Fatigue: PT & OT will work on improving endurance through aerobic exercises and therapeutic activity while monitoring patients tolerance for activity and vital signs as needed. DVT ppx: Heparin 3 times a day Pain: Continue physical modalities in therapy and pain medications as needed to achieve functional pain control. Currently well controlled with Roxicodone as dosed Sleep: Monitor and address as needed. Bowel: Monitor and address as needed. Appetite: Monitor and address as needed. Discharge planning: Pending therapy progress and care plan meeting. Will cont inue discussion with therapy team, SW, patient and family. Restrictions/ Precautions: Falls WB status: FWB Functional Hx: ADLs: Independent Cognition: Independent Mobility: Walking independently with right lower extremity prosthesis Barriers to Discharge: Decreased mobility and ability to perform self care, balance deficits, weakness, decreased endurance and new second BKA Estimated Length of Stay: 14-18 days Discharge Destination: Home with family
[2018-12-04] MEDS: APRESOLINE IV PRN ×2 (07:30→17:17)
[2018-12-04] MEDS: ZESTRIL PO SCH (10:02)
[2018-12-04] MEDS: ECOTRIN PO SCH (10:02)
[2018-12-04] MEDS: PROTONIX PO SCH (10:02)
[2018-12-04] MEDS: DELTASONE PO SCH (10:03)
[2018-12-04] MEDS: ZINC SULFATE PO SCH (10:03)
[2018-12-04] MEDS: COREG PO SCH ×2 (10:04→21:51)
[2018-12-04] MEDS: VITAMIN C PO SCH (10:04)
[2018-12-04] MEDS: NIZORAL TP SCH ×2 (10:05→22:00)
[2018-12-04] MEDS: FLONASE NS SCH (10:06)
[2018-12-04] MEDS: HumaLOG SUB-Q SCH ×4 (10:16→23:21)
[2018-12-04 10:23] LABS: Calcium 7.7 mg/dL (8.4-10.2)
--- NOTE | 2018-12-04 16:03 | Progress Note ---
Assessment and Plan Assessment: -CKD stage 2- suspect he has CKD in setting of DM/HTN with regular fluctuations in eGFR between 50-70 ml/min. Ultrasound shows normal sized kidneys. Creatinine a little higher today but not far from baseline, and within phys iologic range after starting ERIKA-I -nephrotic range proteinuria (6.3g on spot check)- likely related to DM, however will perform secondary workup and consider biopsy outpatient -kidney stone- 1.1cm non-obstructing stone noted on ultrasound -Hypertension- improving -Diabetes Mellitus type 2 -History of Left and Right BKA -MRSA bacteremia: continue vancomycin through 12/05 This is a 48 year old man with history of DM, HTN, PVD who presents for inpatient rehab, found to have difficult to control HTN and abnormal renal function. Plan: -discussed importance of strong BP control and symptoms concerning for hypertensive urgency/emergency. Goal BP<130/80 -continue low salt diet, lifestyle modifications -continue lisinopril 20mg; now off spironolactone (recently started). Decrease hydralazine to BID. Can titrate lisinopril up to 40mg while weaning other medications off. Ideally, patient will be on ERIKA/ARB + thiazide or non- dihydropyridine CCB and can wean off clonidine or hydralazine to eliminate polypharmacy. Will follow daily labs while inpatient -given proteinuria, will send SPEP, free light chains. HIV, hepatitis serologies negative -will defer secondary HTN workup to outpatient -diabetic control per hospital team; SGLT-2 inhibitor may be considered outpatient given results of CREDENCE trial -continue statin given ASCVD risk -hold off on sodium bicarbonate given relative hypocalcemia -will ensure follow up after discharge -avoidance of nephrotoxins, renally dose medications if applicable Subjective Date of service: 12/04/18 Principal diagnosis: Left BKA, ADL and mobility deficits Interval history: no acute events overnight. doing well today, just got back from therapy so a little tired. no dyspnea, chest pain, nausea, vomiting noted Objective - Exam Narrative Exam: General appearance: well-developed, well-nourished, appears stated age EENT: ATNC, PERRL, mucous membranes moist Neck: Present: neck supple, trachea midline Respiratory: Clear to Auscultation Heart: regular, normal heart rate, S1S2, no murmurs Gastrointestinal: Present: normal. Absent: tenderness, distended, masses, guarding Integumentary: no rash Neurologic: no focal deficit, alert and oriented x3 Musculoskeletal: Absent: deformities, joint swelling Psychiatric: mood/affect appropriate, cooperative - Vital Signs Vital signs: Vital Signs - 12hr 12/04/18 12/04/18 12/04/18 04:30 07:13 08:18 Temperature 97.9 F 98.5 F 97.9 F Pulse Rate 83 89 75 Respiratory 18 18 20 Rate Blood Pressure 175/82 Blood Pressure 174/91 117/55 [Left] O2 Sat by Pulse 99 98 97 Oximetry 12/04/18 12/04/18 12/04/18 10:02 12:55 13:06 Temperature 97.8 F Pulse Rate 62 66 66 Respiratory 18 Rate Blood Pressure 118/65 132/67 Blood Pressure 132/67 [Left] O2 Sat by Pulse 100 Oximetry 12/04/18 13:58 Temperature Pulse Rate 65 Respiratory Rate Blood Pressure 131/68 Blood Pressure [Left] O2 Sat by Pulse Oximetry - Lab 12/02/18 06:53 12/04/18 09:42 Most recent lab results Calcium 7.7 mg/dL (8.4-10.2) L 12/04/18 09:42 Phosphorus 2.30 mg/dL (2.5-4.5) L 12/03/18 00:35 73.4 mg/dL (0.1-20.0) H 12/03/18 Unknown 463 mg/dL (5-11.8) H 12/03/18 Unknown Medications & Allergies - Medications Allergies/Adverse Reactions: Allergies metformin Allergy (Verified 11/25/18 20:02) Anaphylaxis Penicillins Allergy (Verified 11/25/18 20:01) Anaphylaxis Home Medications: Home Medications Medication Instructions Recorded Confirmed Last Taken Type Acetaminophen [Acetaminophen ER] 650 mg PO Q6HR PRN 11/26/18 11/26/18 Unknown History Ascorbic Acid [Vitamin C] 250 mg PO QDAY 11/26/18 11/26/18 11/24/18 09:00 History Carvedilol [Coreg] 25 mg PO BID 11/26/18 11/26/18 11/25/18 09:05 History Clonidine HCl [Catapres] 0.3 mg PO TID 11/26/18 11/26/18 11/25/18 14:40 History Deltasone 40 mg PO QDAY 11/26/18 11/26/18 11/25/18 09:00 History Famotidine [Pepcid] 20 mg PO BID 11/26/18 11/26/18 11/25/18 09:00 History Heparin Sodium,Porcine [Heparin 5,000 unit SUB-Q Q8HR 11/26/18 11/26/18 11/25/18 09:00 History Sodium 5000 unit/ml 1ml vial] Insulin Detemir [Levemir VIAL] 30 units SC QHS 11/26/18 11/26/18 11/25/18 21:45 History NIFEdipine XL [Procardia Xl] 60 mg PO QDAY 11/26/18 11/26/18 11/24/18 09:00 History Pravastatin 20 mg QDAY 11/26/18 11/26/18 11/25/18 21:45 History Vancomycin/0.9 % Sod Chloride 1,500 mg IV Q24HR 11/26/18 11/26/18 11/24/18 21:45 History [Vanco 1.5 gm/250 ml-0.9% NaCl] Zinc Sulfate 220 mg PO QDAY 11/26/18 11/26/18 11/25/18 09:00 History dilTIAZem HCl [Diltiazem 24Hr ER 120 mg PO QDAY 11/26/18 11/26/18 11/26/18 00:00 History (Xr)] oxyCODONE [roxiCODONE] 5 mg PO Q4HR PRN 11/26/18 11/26/18 11/25/18 09:00 History Active Medications: Generic Name Dose Route Start Last Admin Trade Name Freq PRN Reason Stop Dose Admin Acetaminophen 650 mg 11/25/18 16:28 Tylenol PO Q6H PRN Non Cardiac Pain or Temp>100.5 Ascorbic Acid 250 mg 11/26/18 08:00 12/04/18 10:04 Vitamin C PO 250 mg QDAY EFREN Administration Aspirin 325 mg 11/26/18 08:00 12/04/18 10:02 Ecotrin PO 325 mg QDAY EFREN Administration Bisacodyl 10 mg 11/25/18 16:28 Dulcolax [place] QDAY PRN Constipation Carvedilol 25 mg 11/25/18 22:00 12/04/18 10:04 Coreg PO 25 mg BID EFREN Administration Clonidine HCl 0.3 mg 11/25/18 20:00 12/04/18 12:55 Catapres PO 0.3 mg Q8H EFREN Administration Dextrose 50 ml 11/25/18 16:08 D50w (25gm) Syringe IV PRN PRN Hypoglycemia Diltiazem HCl 90 mg 11/29/18 00:00 12/04/18 12:56 Cardizem PO 90 mg Q6HR EFREN Administration Diphenoxylate HCl/Atropine 1 tab 12/03/18 10:00 Lomotil PO Q6H PRN Diarrhea Fluticasone Propionate 100 mcg 12/03/18 10:00 12/04/18 10:06 Flonase NS Not Given QDAY [facility] Heparin Sodium (Porcine) 5,000 unit 11/25/18 22:00 12/04/18 13:59 Heparin SUB-Q 5,000 unit Q8HR EFREN Administration Hydralazine HCl 10 mg 11/28/18 12:30 12/04/18 07:30 Apresoline IV 10 mg Q4H PRN Administration Hypertension Hydralazine HCl 50 mg 12/04/18 22:00 Apresoline PO BID [facility] Vancomycin HCl 1 gm in 250 mls @ 167.007 mls/hr 11/28/18 22:00 12/04/18 04:33 Vancomycin/Ns 1 Gm/250 Ml IV 12/06/18 23:59 Infused Q24H [facility] Infusion Insulin Glargine 35 units 11/25/18 21:00 12/03/18 22:27 Lantus SUB-Q 35 units QHS [facility] Administration Insulin Human Lispro 0 unit 11/25/18 22:00 12/04/18 12:49 Humalog SUB-Q Not Given ACHS [facility] Protocol Ketoconazole 1 applic 12/01/18 22:00 12/04/18 10:05 Nizoral TP 12/08/18 21:59 1 applic BID [facility] Administration Lisinopril 20 mg 12/02/18 15:00 12/04/18 10:02 Zestril PO 20 mg QDAY [facility] Administration Ondansetron HCl 4 mg 11/25/18 16:28 Zofran Odt PO Q8H PRN Nausea And Vomiting Oxycodone HCl 5 mg 11/25/18 16:32 11/29/18 01:09 Roxicodone PO 5 mg Q6H PRN Administration Pain, Moderate (4-6) Oxycodone HCl 10 mg 11/28/18 15:10 12/03/18 22:48 Roxicodone PO 10 mg Q6H PRN Administration Pain , Severe (7-10) Pantoprazole Sodium 20 mg 11/26/18 08:00 12/04/18 10:02 Protonix PO 20 mg QDAY EFREN Administration Polyethylene Glycol 17 gm 11/25/18 16:28 Miralax 3350 PO QDAY PRN Constipation Pravastatin Sodium 20 mg 11/25/18 21:00 12/03/18 22:26 Pravachol PO 20 mg QHS EFREN Administration Prednisone 10 mg 12/01/18 08:00 12/04/18 10:03 Deltasone PO 12/06/18 09:59 10 mg QDAY EFREN Administration Zinc Sulfate 220 mg 11/26/18 08:00 12/04/18 10:03 Zinc Sulfate PO 220 mg QDAY EFREN Administration
[2018-12-04] MEDS: LANTUS SUB-Q SCH (21:52)
[2018-12-04] MEDS: PRAVACHOL PO SCH (21:53)
[2018-12-04] MEDS: DESYREL PO PRN (21:54)
[2018-12-04] MEDS: ROXICODONE PO PRN (21:55)
[2018-12-04] MEDS: VANCOMYCIN/NS 1 GM/250 ML 1 GM/250 ML BAG IV SCH (22:03)
[2018-12-05] MEDS: ROXICODONE PO PRN ×3 (02:42→23:19)
[2018-12-05] MEDS ORDERED: CATAPRES PO SCH ×2 (04:00→23:00)
[2018-12-05] MEDS: CATAPRES PO SCH ×3 (04:32→23:25)
[2018-12-05] MEDS: HEPARIN SUB-Q SCH ×3 (06:07→23:05)
[2018-12-05] MEDS: CARDIZEM PO SCH ×2 (06:07→12:58)
[2018-12-05] MEDS: APRESOLINE IV PRN (06:42)
[2018-12-05] MEDS: HumaLOG SUB-Q SCH ×4 (08:02→23:33)
[2018-12-05] MEDS: VITAMIN C PO SCH (12:56)
[2018-12-05] MEDS: ECOTRIN PO SCH (12:57)
[2018-12-05] MEDS: DELTASONE PO SCH (12:57)
[2018-12-05] MEDS: APRESOLINE PO SCH ×2 (12:57→23:32)
[2018-12-05] MEDS: PROTONIX PO SCH (12:57)
[2018-12-05] MEDS: ZESTRIL PO SCH (12:57)
--- NOTE | 2018-12-05 12:57 | Progress Note ---
Subjective Date of service: 12/05/18 Principal diagnosis: Left BKA, ADL and mobility deficits Interval history: 48-year-old male who presented to the ER with pain and swelling with purulent drainage from the left diabetic foot wound. He had a recent medication of this second digit. He underwent a left BKA on November 20. Blood cultures were positive for MRSA and was started on IV vancomycin which she will continue through 12/05. Initial blood cultures and postop blood cultures were positive as stated but follow-up blood cultures on November 22 were negative. Patient has a right BKA and has been ambulatory with a prosthesis. States that he recently was scheduled to see his burr grinder for a retrofit. Oddly enough he has a different prosthesis for each leg. I advised him it would be hernandez to have the same burr grinder for both legs and the choice would be up to him as far as which one he wants to continue with. Patient states that he did have phantom pain and sensation in the right lower extremity with his prior amputation from approximately 2011 however he has not experienced any phantom sensation or phantom pain currently with his left amputation. Dressing was taken down with therapy and no malodorous or purulent discharge was noted. He did have some slight bloody drainage at the anterior medial aspect on the staple line. Participating in therapy and making progress. +BM, diarrhea resolved. Denies palpitations, dyspnea, cough, N/V, or joint pain. Pain controlled with medications. BP has improved, discussed with nephrology this morning. Has required prn IV hydralazine. Nephrology has transitioned to ERIKA and is decreasing hydralazine. Contacted [facility] for assistance in either repair are replacement of his existing prosthesis as well as for follow-up for fabrication of his new prosthesis. Previously he was a K3 ambulator and will continue to be K3 once he receives his second prosthesis. Even with a failing prosthesis he was still able to ambulate over unlevel surfaces and continue with activities of daily life. If we can at least get his current prosthetic unit modified so that it is safe he can continue making progress with a functioning prosthesis which will allow us to ambulate with him using a rolling walker. Overall due to the ill fit it will need to be replaced but having a safe alternative for the short-term would be helpful to continue his functional progress. Otherwise doing well. All records, vitals, labs and medications were reviewed. No other issues per patient, nursing or therapy. Objective - Exam Narrative Exam: MUSCULOSKELETAL SPECIALTY EXAM CONSTITUTIONAL: Well developed, well nourished, appropriately groomed, obese EENT: EOMI. Hearing intact to soft voice. RESPIRATORY: Clear to auscultation bilaterally, no increased work of breathing CARDIOVASCULAR: Regular Rate/ Rhythm, no swelling, edema or tenderness in BUE or BLE. All extremities warm. GI: + bowel sounds, soft, NTTP, nondistended. INTEGUMENTARY: Normal, no lesion, rash, masses or bruising noted in extremities, except for surgical wound on left lower extremity, ne intact, wrapped MUSCULOSKELETAL: BUE and BLE normal without defect, crepitus, subluxation, effusion, arthritic changes or TTP except for bilateral BKA. RUE 4+/5, LUE 4-/5, both good ROM, with normal tone. BLE 4/5 good ROM, with normal tone NEURO: CN 2-12 grossly intact. Sensation intact in all extremities. No tremor noted in 4 extremities. POSTURE and GAIT: Sitting posture good. Balance appears reasonable. Will not be able to assess gait due to defect in prosthesis. Squat pivot transfer with prosthetic leg reasonable PSYCH: Alert, oriented x3, affect appears normal. Insight appears intact. - Constitutional Vitals: Vital Signs - 12hr 12/05/18 12/05/18 12/05/18 03:58 07:39 12:11 Temperature 36.9 C 36.9 C 36.6 C Pulse Rate 75 81 60 Respiratory 19 18 18 Rate Blood Pressure 152/75 160/78 134/70 O2 Sat by Pulse 98 97 99 Oximetry - Allied health notes Allied health notes reviewed: nursing, PT, OT FIMS assessment as documented by PT/OT/ST: Grooming Patient cleans teeth/dentures: Yes Patient joseph/brushes hair: Yes Patient washes, rinses and Yes dries face: Patient washes, rinses and Yes dries hands: Patient performs (no make-up/ /4 (100%) shaving): Grooming FIM Score 5. Supervision ([place] applies toothpaste or opens containers.) Toileting Toileting Device Commode over Toilet Patient able to: Adjust clothes before,Clean self,Adjust clothes after Patient able to perform: 3/3 (100%) Toileting FIM Score 6. Modified [place] (Needs equip. or prosth ./orth.) Social interaction/Memory/Problem solving Social Interaction FIM Score 7. Complete [place] (Interacts appropriately. Controls temper.) Memory FIM Score 7. Complete [place] (Remembers people and routines.) Problem Solving FIM Score 7. Complete [place] (Solves complex problems. Self corrects.) Transfers Mode of Locomotion: Wheelchair Bed/Chair/Wheelchair Transfers 5. Supervision (Needs supv. or set-up for FIM Score sliding board, foot rests.) Toilet Transfers FIM Score 3. Moderate Assistance (Patient = 50% or more. Some lifting.) Patient transferred to: Shower Shower Transfers FIM Score 5. Supervision (Needs supv. or set-up with device.) Locomotion- Stairs Stairs FIM Score 0. Activity does not occur Locomotion- walk/wheelchair Most Frequent Mode of Wheelchair Locomotion: Walking FIM Score 0. Activity does not occur Wheelchair Propulsion Distance 200 Wheelchair FIM Score 6. Modified [place] (Wheels a minimum of 150 ft.) Eating Eating FIM Score 7. Complete [place] (Cuts meat, opens containers, regular diet.) Dressing-Upper body Patient retrieves clothing Yes items: Patient applies/removes UE Yes prosthesis or orthosis: Upper Body Dressing FIM Score 6. Modified [place] (Needs equipment, velcro or pros./orth.) Dressing-lower body Patient retrieves clothing Yes items: Patient applies/removes LE Yes prosthesis or orthosis: Lower Body Dressing FIM Score 6. Modified [place] (Needs equipment, velcro or pros./orth.) - Labs CBC & Chem 7: 12/02/18 06:53 12/05/18 06:04 Labs: Laboratory Results - last 72 hr 12/02/18 12/02/18 12/03/18 16:42 20:22 00:35 Sodium Potassium Chloride Carbon Dioxide Anion Gap BUN Creatinine Estimated GFR BUN/Creatinine Ratio Glucose POC Glucose 250 H 208 H Calcium Phosphorus 2.30 L PTH Intact Urine Color Urine Turbidity Urine pH Ur Specific [place] Urine Protein Urine Glucose (UA) Urine Ketones Urine Blood Urine Nitrite Urine Bilirubin Urine Urobilinogen Ur Leukocyte Esterase Urine WBC (Auto) Urine RBC (Auto) Urine Bacteria (Auto) Urine Mucus Urine Creatinine Protein/Creatinin Ratio Urine Total Protein Hepatitis A IgM Ab Hep Bs Antigen Hep B Core IgM Ab Hepatitis C Antibody HIV 1&2 Antibody Rapid HIV P24 Antigen 0812/03/18 12/03/18 01:09 06:33 08:40 Sodium 140 Potassium 4.3 Chloride 109.7 H Carbon Dioxide 21 L Anion Gap 14 BUN 27 H Creatinine 1.4 Estimated GFR > 60 BUN/Creatinine Ratio 19 Glucose 120 H POC Glucose 142 H Calcium 7.9 L Phosphorus PTH Intact 63.35 Urine Color Urine Turbidity Urine pH Ur Specific [place] Urine Protein Urine Glucose (UA) Urine Ketones Urine Blood Urine Nitrite Urine Bilirubin Urine Urobilinogen Ur Leukocyte Esterase Urine WBC (Auto) Urine RBC (Auto) Urine Bacteria (Auto) Urine Mucus Urine Creatinine Protein/Creatinin Ratio Urine Total Protein Hepatitis A IgM Ab Hep Bs Antigen Hep B Core IgM Ab Hepatitis C Antibody HIV 1&2 Antibody Rapid HIV P24 Antigen 12/03/18 12/03/18 12/03/18 12:08 16:47 20:37 Sodium Potassium Chloride Carbon Dioxide Anion Gap BUN Creatinine Estimated GFR BUN/Creatinine Ratio Glucose POC Glucose 206 H 174 H 253 H Calcium Phosphorus PTH Intact Urine Color Urine Turbidity Urine pH Ur Specific [place] Urine Protein Urine Glucose (UA) Urine Ketones Urine Blood Urine Nitrite Urine Bilirubin Urine Urobilinogen Ur Leukocyte Esterase Urine WBC (Auto) Urine RBC (Auto) Urine Bacteria (Auto) Urine Mucus Urine Creatinine Protein/Creatinin Ratio Urine Total Protein Hepatitis A IgM Ab Hep Bs Antigen Hep B Core IgM Ab Hepatitis C Antibody HIV 1&2 Antibody Rapid HIV P24 Antigen 12/03/18 12/03/18 12/04/18 Unknown Unknown 01:45 Sodium Potassium Chloride Carbon Dioxide Anion Gap BUN Creatinine Estimated GFR BUN/Creatinine Ratio Glucose POC Glucose Calcium Phosphorus PTH Intact Urine Color Yellow Urine Turbidity Clear Urine pH 5.0 Ur Specific [place] 1.014 Urine Protein >2000 mg dl Urine Glucose (UA) 50 Urine Ketones Neg Urine Blood Neg Urine Nitrite Neg Urine Bilirubin Neg Urine Urobilinogen < 2.0 Ur Leukocyte Esterase Neg Urine WBC (Auto) 1.0 Urine RBC (Auto) 4.0 Urine Bacteria (Auto) 1+ Urine Mucus Few Urine Creatinine 73.4 H Protein/Creatinin Ratio 6.31 Urine Total Protein 463 H Hepatitis A IgM Ab Non-reactive Hep Bs Antigen Non-reactive Hep B Core IgM Ab Non-reactive Hepatitis C Antibody Non-reactive HIV 1&2 Antibody Rapid HIV P24 Antigen 12/04/18 12/04/18 12/04/18 01:45 08:07 09:42 Sodium 137 Potassium 4.2 Chloride 105.9 Carbon Dioxide 20 L Anion Gap 15 BUN 32 H Creatinine 1.6 H Estimated GFR 57 BUN/Creatinine Ratio 20 Glucose 331 H POC Glucose 292 H Calcium 7.7 L Phosphorus PTH Intact Urine Color Urine Turbidity Urine pH Ur Specific [place] Urine Protein Urine Glucose (UA) Urine Ketones Urine Blood Urine Nitrite Urine Bilirubin Urine Urobilinogen Ur Leukocyte Esterase Urine WBC (Auto) Urine RBC (Auto) Urine Bacteria (Auto) Urine Mucus Urine Creatinine Protein/Creatinin Ratio Urine Total Protein Hepatitis A IgM Ab Hep Bs Antigen Hep B Core IgM Ab Hepatitis C Antibody HIV 1&2 Antibody Rapid Non react HIV P24 Antigen Non react 12/04/18 12/04/18 12/04/18 12:56 16:51 20:56 Sodium Potassium Chloride Carbon Dioxide Anion Gap BUN Creatinine Estimated GFR BUN/Creatinine Ratio Glucose POC Glucose 84 151 H 268 H Calcium Phosphorus PTH Intact Urine Color Urine Turbidity Urine pH Ur Specific [place] Urine Protein Urine Glucose (UA) Urine Ketones Urine Blood Urine Nitrite Urine Bilirubin Urine Urobilinogen Ur Leukocyte Esterase Urine WBC (Auto) Urine RBC (Auto) Urine Bacteria (Auto) Urine Mucus Urine Creatinine Protein/Creatinin Ratio Urine Total Protein Hepatitis A IgM Ab Hep Bs Antigen Hep B Core IgM Ab Hepatitis C Antibody HIV 1&2 Antibody Rapid HIV P24 Antigen 12/05/18 12/05/18 12/05/18 06:04 07:45 11:57 Sodium 141 Potassium 3.9 Chloride 108.9 H Carbon Dioxide 21 L Anion Gap 15 BUN 32 H Creatinine 1.6 H Estimated GFR 57 BUN/Creatinine Ratio 20 Glucose 75 POC Glucose 79 172 H Calcium 8.0 L Phosphorus PTH Intact Urine Color Urine Turbidity Urine pH Ur Specific [place] Urine Protein Urine Glucose (UA) Urine Ketones Urine Blood Urine Nitrite Urine Bilirubin Urine Urobilinogen Ur Leukocyte Esterase Urine WBC (Auto) Urine RBC (Auto) Urine Bacteria (Auto) Urine Mucus Urine Creatinine Protein/Creatinin Ratio Urine Total Protein Hepatitis A IgM Ab Hep Bs Antigen Hep B Core IgM Ab Hepatitis C Antibody HIV 1&2 Antibody Rapid HIV P24 Antigen Assessment and Plan Left BKA: Continue post surgical care with dressing changes every other day and when necessary. Monitor for any signs of wound infection. [place] to be removed in 6-8 weeks per surgery. Monitor for any signs of phantom pain or sensation. Ring Facer when able. Advised patient to choose one burr grinder for both legs -having difficulty with the burr grinder that he chose continue with, may need to switch. Continue stump protector. Right BKA: In process of having prosthesis remade. Hypertension: Continue medications monitor for normotension adjust as needed. Hydralazine with prn. Nephrology consulted. Diabetes type 2, poorly controlled: Continue Carb controlled diet, continue insulin and adjust as needed. Outside hospital A1c 10.0. Anemia: Mixed chronic and postacute blood loss. Monitor CBC GERD: Continue Protonix monitor MRSA bacteremia: Last blood culture performed on November 22 was negative. This is post amputation of November 20. We'll continue to monitor and will DC isolation. Continue vancomycin through 12/05. Hyperlipidemia: Continue statin Monitor leukocytosis and renal function GLU - elevated due to prednisone taper - SSI d/c colchicine - feels like ganglion cyst today since swelling has decreased. Pain level not c/w gout Z73.6 ADL dysfunction: OT will work on improving ability to perform ADLs (including assistive devices) to increase independence and decrease caregiver burden and improve functional transfers and mobility training. R26.2 Difficulty walking: PT will work on gait training and proper use of assistive devices and advance as appropriate to use of stairs and outside ambulation on uneven surfaces. R26.81 Unsteadiness on feet: PT will work on improving static and dynamic sitting and standing balance as well as proper use of assistive devices to decrease risk of falls. R26.89 Abnormality of gait: PT will work to improve safety and efficiency of gait through neuromotor training and gait training along with instruction on proper use of assistive devices. M62.81 Muscle weakness: PT & OT will work on strengthening exercises to improve functional strength including mixture of closed and open kinetic chain exercises. R53.81 Debility: PT & OT will work on improving overall functional status to improve participation with ADLs, mobility and social involvement. R53.83 Fatigue: PT & OT will work on improving endurance through aerobic exercises and therapeutic activity while monitoring patients tolerance for activity and vital signs as needed. DVT ppx: Heparin 3 times a day Pain: Continue physical modalities in therapy and pain medications as needed to achieve functional pain control. Currently well controlled with Roxicodone as dosed Sleep: Monitor and address as needed. Bowel: Monitor and address as needed. Appetite: Monitor and address as needed. Discharge planning: Pending therapy progress and care plan meeting. Will continue discussion with therapy team, SW, patient and family. Restrictions/ Precautions: Falls WB status: FWB Functional Hx: ADLs: Independent Cognition: Independent Mobility: Walking independently with right lower extremity prosthesis Barriers to Discharge: Decreased mobility and ability to perform self care, balance deficits, weakness, decreased endurance and new second BKA Estimated Length of Stay: 14-18 days Discharge Destination: Home with family Prosthetics: Mr. Lee had a previous right BKA and that current prosthesis is nonfunctional and ill fitting due to normal wear and tear and decreased residual limb volume. At this time the pin does not always lock into the leg but he has been using it in this manner. He attempted, and we also attempted, to have the original company make repairs to the leg or to replace it. This has proved difficult and so we contacted [facility] to assist us with improving his ability for functional ambulation. Even with the issues with his current leg he was still utilizing it and walking as best he could. He now has a new left BKA. He still has the desire to ambulate and has the ability to ambulate using bilateral prosthesis. With the patient's current physical condition and his experience in walking with a unilateral prosthesis I would expect him to continue to function at his previous level of K3. Previously he was walking in his community including on unlevel surfaces in order to perform his activities needed for both therapeutic activities as well as activities of daily living. These activities included walking around the home, outside the home, fishing at a local reservoir, light home maintenance, driving, social activities, navigation of stairs which he has in the home, and cooking. He is out of the house at least 5 out of 7 days. He does not have any comorbidities that would impact his ability to function with the prosthesis and he was previously functioning with a unilateral prosthesis.
[2018-12-05] MEDS: COREG PO SCH ×2 (12:58→23:08)
[2018-12-05] MEDS: ZINC SULFATE PO SCH (13:00)
[2018-12-05] MEDS: FLONASE NS SCH (13:01)
[2018-12-05] MEDS: NIZORAL TP SCH ×2 (13:01→23:33)
--- NOTE | 2018-12-05 13:57 | Progress Note ---
Assessment and Plan Assessment: -CKD stage 2- suspect he has CKD in setting of DM/HTN with regular fluctuations in eGFR between 50-70 ml/min. Ultrasound shows normal sized kidneys. Creatinine a little higher today but not far from baseline, and within phys iologic range after starting ERIKA-I -nephrotic range proteinuria (6.3g on spot check)- likely related to DM, however will perform secondary workup and consider biopsy outpatient -kidney stone- 1.1cm non-obstructing stone noted on ultrasound -Hypertension- improving -Diabetes Mellitus type 2 -History of Left and Right BKA -MRSA bacteremia: continue vancomycin through 12/05 This is a 48 year old man with history of DM, HTN, PVD who presents for inpatient rehab, found to have difficult to control HTN and abnormal renal function. Plan: -discussed importance of strong BP control and symptoms concerning for hypertensive urgency/emergency. Goal BP<130/80 -continue low salt diet, lifestyle modifications -continue lisinopril 20mg; Continue hydralazine 50mg BID, will continue to wean. D/c diltiazem and start amlodipine 10mg. Can titrate lisinopril up to 40mg while weaning other medications off. Ideally, patient will be on ERIKA/ARB + thiazide or non-dihydropyridine CCB and can wean completely off clonidine or hydralazine to eliminate polypharmacy. Will follow daily labs while inpatient -given proteinuria, will send SPEP, free light chains. HIV, hepatitis serologies negative -will defer secondary HTN workup to outpatient -diabetic control per hospital team; SGLT-2 inhibitor may be considered outpatient given results of [facility] trial -continue statin given ASCVD risk -hold off on sodium bicarbonate given relative hypocalcemia -will ensure follow up after discharge -avoidance of nephrotoxins, renally dose medications if applicable Subjective Date of service: 12/12/18 Principal diagnosis: Left BKA, ADL and mobility deficits Interval history: no acute events overnight. doing well today, without side effects from medications. no dyspnea, chest pain, nausea, vomiting noted Objective - Exam Narrative Exam: General appearance: well-developed, well-nourished, appears stated age EENT: ATNC, PERRL, mucous membranes moist Neck: Present: neck supple, trachea midline Respiratory: Clear to Auscultation Heart: regular, normal heart rate, S1S2, no murmurs Gastrointestinal: Present: normal. Absent: tenderness, distended, masses, guarding Integumentary: no rash Neurologic: no focal deficit, alert and oriented x3 Musculoskeletal: Absent: deformities, joint swelling Psychiatric: mood/affect appropriate, cooperative - Vital Signs Vital signs: Vital Signs - 12hr 12/05/18 12/05/18 12/05/18 03:58 07:39 12:11 Temperature 98.5 F 98.4 F 97.8 F Pulse Rate 75 81 60 Respiratory 19 18 18 Rate Blood Pressure 152/75 160/78 134/70 O2 Sat by Pulse 98 97 99 Oximetry - Lab 12/02/18 06:53 12/05/18 06:04 Most recent lab results Calcium 8.0 mg/dL (8.4-10.2) L 12/05/18 06:04 Phosphorus 2.30 mg/dL (2.5-4.5) L 12/03/18 00:35 73.4 mg/dL (0.1-20.0) H 12/03/18 Unknown 463 mg/dL (5-11.8) H 12/03/18 Unknown Medications & Allergies - Medications Allergies/Adverse Reactions: Allergies metformin Allergy (Verified 11/25/18 20:02) Anaphylaxis Penicillins Allergy (Verified 11/25/18 20:01) Anaphylaxis Home Medications: Home Medications Medication Instructions Recorded Confirmed Last Taken Type Acetaminophen [Acetaminophen ER] 650 mg PO Q6HR PRN 11/26/18 11/26/18 Unknown History Ascorbic Acid [Vitamin C] 250 mg PO QDAY 11/26/18 11/26/18 11/24/18 09:00 History Carvedilol [Coreg] 25 mg PO BID 11/26/18 11/26/18 11/25/18 09:05 History Clonidine HCl [Catapres] 0.3 mg PO TID 11/26/18 11/26/18 11/25/18 14:40 History Deltasone 40 mg PO QDAY 11/26/18 11/26/18 11/25/18 09:00 History Famotidine [Pepcid] 20 mg PO BID 11/26/18 11/26/18 11/25/18 09:00 History Heparin Sodium,Porcine [Heparin 5,000 unit SUB-Q Q8HR 11/26/18 11/26/18 11/25/18 09:00 History Sodium 5000 unit/ml 1ml vial] Insulin Detemir [Levemir VIAL] 30 units SC QHS 11/26/18 11/26/18 11/25/18 21:45 History NIFEdipine XL [Procardia Xl] 60 mg PO QDAY 11/26/18 11/26/18 11/24/18 09:00 History Pravastatin 20 mg QDAY 11/26/18 11/26/18 11/25/18 21:45 History Vancomycin/0.9 % Sod Chloride 1,500 mg IV Q24HR 11/26/18 11/26/18 11/24/18 21:45 History [Vanco 1.5 gm/250 ml-0.9% NaCl] Zinc Sulfate 220 mg PO QDAY 11/26/18 11/26/18 11/25/18 09:00 History dilTIAZem HCl [Diltiazem 24Hr ER 120 mg PO QDAY 11/26/18 11/26/18 11/26/18 00:00 History (Xr)] oxyCODONE [roxiCODONE] 5 mg PO Q4HR PRN 11/26/18 11/26/18 11/25/18 09:00 History Active Medications: Generic Name Dose Route Start Last Admin Trade Name Freq PRN Reason Stop Dose Admin Acetaminophen 650 mg 11/25/18 16:28 Tylenol PO Q6H PRN Non Cardiac Pain or Temp>100.5 Ascorbic Acid 250 mg 11/26/18 08:00 12/05/18 12:56 Vitamin C PO 250 mg QDAY EFREN Administration Aspirin 325 mg 11/26/18 08:00 12/05/18 12:57 Ecotrin PO 325 mg QDAY EFREN Administration Bisacodyl 10 mg 11/25/18 16:28 Dulcolax [place] QDAY PRN Constipation Carvedilol 25 mg 11/25/18 22:00 12/05/18 12:58 Coreg PO 25 mg BID EFREN Administration Clonidine HCl 0.3 mg 11/25/18 20:00 12/05/18 12:58 Catapres PO 0.3 mg Q8H EFREN Administration Dextrose 50 ml 11/25/18 16:08 D50w (25gm) Syringe IV PRN PRN Hypoglycemia Diltiazem HCl 90 mg 11/29/18 00:00 12/05/18 12:58 Cardizem PO 90 mg Q6HR EFREN Administration Diphenoxylate HCl/Atropine 1 tab 12/03/18 10:00 Lomotil PO Q6H PRN Diarrhea Fluticasone Propionate 100 mcg 12/03/18 10:00 12/05/18 13:01 Flonase NS 100 mcg QDAY EFREN Administration Heparin Sodium (Porcine) 5,000 unit 11/25/18 22:00 12/05/18 12:59 Heparin SUB-Q 5,000 unit Q8HR EFREN Administration Hydralazine HCl 10 mg 11/28/18 12:30 12/05/18 06:42 Apresoline IV 10 mg Q4H PRN Administration Hypertension Hydralazine HCl 50 mg 12/04/18 22:00 12/05/18 12:57 Apresoline PO 50 mg BID EFREN Administration Vancomycin HCl 1 gm in 250 mls @ 167.007 mls/hr 11/28/18 22:00 12/05/18 04:37 Vancomycin/Ns 1 Gm/250 Ml IV 12/06/18 23:59 Infused Q24H EFREN Infusion Insulin Glargine 35 units 11/25/18 21:00 12/04/18 21:52 Lantus SUB-Q 35 units QHS EFREN Administration Insulin Human Lispro 0 unit 11/25/18 22:00 12/05/18 08:02 Humalog SUB-Q Not Given ACHS [facility] Protocol Ketoconazole 1 applic 12/01/18 22:00 12/05/18 13:01 Nizoral TP 12/08/18 21:59 1 applic BID EFREN Administration Lisinopril 20 mg 12/02/18 15:00 12/05/18 12:57 Zestril PO 20 mg QDAY EFREN Administration Ondansetron HCl 4 mg 11/25/18 16:28 Zofran Odt PO Q8H PRN Nausea And Vomiting Oxycodone HCl 5 mg 11/25/18 16:32 12/04/18 21:55 Roxicodone PO 5 mg Q6H PRN Administration Pain, Moderate (4-6) Oxycodone HCl 10 mg 11/28/18 15:10 12/05/18 13:11 Roxicodone PO 10 mg Q6H PRN Administration Pain , Severe (7-10) Pantoprazole Sodium 20 mg 11/26/18 08:00 12/05/18 12:57 Protonix PO 20 mg QDAY EFREN Administration Polyethylene Glycol 17 gm 11/25/18 16:28 Miralax 3350 PO QDAY PRN Constipation Pravastatin Sodium 20 mg 11/25/18 21:00 12/04/18 21:53 Pravachol PO 20 mg QHS EFREN Administration Prednisone 10 mg 12/01/18 08:00 12/05/18 12:57 Deltasone PO 12/06/18 09:59 10 mg QDAY EFREN Administration Trazodone HCl 50 mg 12/04/18 19:17 12/04/18 21:54 Desyrel PO 50 mg QHS PRN Administration Insomnia Zinc Sulfate 220 mg 11/26/18 08:00 12/05/18 13:00 Zinc Sulfate PO Not Given QDAY EFREN
[2018-12-05] MEDS: NORVASC PO SCH (20:06)
[2018-12-05] MEDS: LANTUS SUB-Q SCH (23:02)
[2018-12-05] MEDS: PRAVACHOL PO SCH (23:08)
[2018-12-05] MEDS: VANCOMYCIN/NS 1 GM/250 ML 1 GM/250 ML BAG IV SCH (23:57)
[2018-12-06] MEDS: CATAPRES PO SCH ×6 (00:07→23:59)
[2018-12-06] MEDS ORDERED: CATAPRES PO SCH ×3 (04:00)
[2018-12-06] MEDS: HEPARIN SUB-Q SCH ×3 (06:58→22:27)
[2018-12-06] MEDS: ROXICODONE PO PRN (07:03)
[2018-12-06 07:30] LABS: Calcium 8.3 mg/dL (8.4-10.2)
[2018-12-06] MEDS: HumaLOG SUB-Q SCH ×4 (09:36→22:00)
[2018-12-06] MEDS: PROTONIX PO SCH (09:38)
[2018-12-06] MEDS: ECOTRIN PO SCH (09:38)
[2018-12-06] MEDS: APRESOLINE PO SCH ×3 (09:38→20:20)
[2018-12-06] MEDS: COREG PO SCH ×2 (09:39→22:24)
[2018-12-06] MEDS: ZESTRIL PO SCH ×2 (09:41→22:58)
[2018-12-06] MEDS: NORVASC PO SCH (09:41)
[2018-12-06] MEDS: ZINC SULFATE PO SCH (09:42)
[2018-12-06] MEDS: VITAMIN C PO SCH (09:43)
[2018-12-06] MEDS: NIZORAL TP SCH (09:47)
[2018-12-06] MEDS: FLONASE NS SCH (09:48)
[2018-12-06] MEDS: DELTASONE PO SCH (11:09)
--- NOTE | 2018-12-06 13:08 | Progress Note ---
Assessment and Plan Assessment: -CKD stage 2- suspect he has CKD in setting of DM/HTN -nephrotic range proteinuria (6.3g on spot check)- likely related to DM, however will perform secondary workup and consider biopsy outpatient -kidney stone- 1.1cm non-obstructing stone noted on ultrasound -Hypertension- improving -Diabetes Mellitus type 2 -History of Left and Right BKA -MRSA bacteremia: continue vancomycin through 12/05 Plan: -discussed importance of strong BP control and symptoms concerning for hypertensive urgency/emergency. Goal BP<130/80 -continue low salt diet, lifestyle modifications -continue bp meds -given proteinuria, will send SPEP, free light chains. HIV, hepatitis serologies negative -will defer secondary HTN workup to outpatient -diabetic control per hospital team; SGLT-2 inhibitor may be considered outpatient given results of [facility] trial -continue statin given ASCVD risk -will ensure follow up after discharge -avoidance of nephrotoxins, renally dose medications if applicable cr is stable at this time Subjective Date of service: 12/13/18 Principal diagnosis: Left BKA, ADL and mobility deficits Interval history: resting in bed today Objective - Exam Narrative Exam: General appearance: well-developed, well-nourished, appears stated age EENT: ATNC, PERRL, mucous membranes moist Neck: Present: neck supple, trachea midline Respiratory: Clear to Auscultation Heart: regular, normal heart rate, S1S2, no murmurs Gastrointestinal: Present: normal. Absent: tenderness, distended, masses, guarding Integumentary: no rash Neurologic: no focal deficit, alert and oriented x3 Musculoskeletal: Absent: deformities, joint swelling Psychiatric: mood/affect appropriate, cooperative - Vital Signs Vital signs: Vital Signs - 12hr 12/06/18 12/06/18 12/06/18 04:30 07:54 08:03 Temperature 98.0 F 98.3 F Pulse Rate 89 85 Respiratory 20 18 18 Rate Blood Pressure 191/103 Blood Pressure 194/100 [Left] O2 Sat by Pulse 99 97 Oximetry 12/06/18 12/06/18 12/06/18 09:38 09:39 09:40 Temperature Pulse Rate 85 85 85 Respiratory Rate Blood Pressure 191/103 191/103 191/103 Blood Pressure [Left] O2 Sat by Pulse Oximetry 12/06/18 12/06/18 12/06/18 09:41 09:42 12:04 Temperature 98.1 F Pulse Rate 85 85 97 H Respiratory 18 Rate Blood Pressure 191/103 191/103 151/85 Blood Pressure [Left] O2 Sat by Pulse 99 Oximetry - Lab 12/02/18 06:53 12/06/18 06:25 Most recent lab results Calcium 8.3 mg/dL (8.4-10.2) L 12/06/18 06:25 Phosphorus 2.30 mg/dL (2.5-4.5) L 12/03/18 00:35 73.4 mg/dL (0.1-20.0) H 12/03/18 Unknown 463 mg/dL (5-11.8) H 12/03/18 Unknown Medications & Allergies - Medications Allergies/Adverse Reactions: Allergies metformin Allergy (Verified 11/25/18 20:02) Anaphylaxis Penicillins Allergy (Verified 11/25/18 20:01) Anaphylaxis Home Medications: Home Medications Medication Instructions Recorded Confirmed Last Taken Type Acetaminophen [Acetaminophen ER] 650 mg PO Q6HR PRN 11/26/18 11/26/18 Unknown History Ascorbic Acid [Vitamin C] 250 mg PO QDAY 11/26/18 11/26/18 11/24/18 09:00 History Carvedilol [Coreg] 25 mg PO BID 11/26/18 11/26/18 11/25/18 09:05 History Clonidine HCl [Catapres] 0.3 mg PO TID 11/26/18 11/26/18 11/25/18 14:40 History Deltasone 40 mg PO QDAY 11/26/18 11/26/18 11/25/18 09:00 History Famotidine [Pepcid] 20 mg PO BID 11/26/18 11/26/18 11/25/18 09:00 History Heparin Sodium,Porcine [Heparin 5,000 unit SUB-Q Q8HR 11/26/18 11/26/18 11/25/18 09:00 History Sodium 5000 unit/ml 1ml vial] Insulin Detemir [Levemir VIAL] 30 units SC QHS 11/26/18 11/26/18 11/25/18 21:45 History NIFEdipine XL [Procardia Xl] 60 mg PO QDAY 11/26/18 11/26/18 11/24/18 09:00 History Pravastatin 20 mg QDAY 11/26/18 11/26/18 11/25/18 21:45 History Vancomycin/0.9 % Sod Chloride 1,500 mg IV Q24HR 11/26/18 11/26/18 11/24/18 21:45 History [Vanco 1.5 gm/250 ml-0.9% NaCl] Zinc Sulfate 220 mg PO QDAY 11/26/18 11/26/18 11/25/18 09:00 History dilTIAZem HCl [Diltiazem 24Hr ER 120 mg PO QDAY 11/26/18 11/26/18 11/26/18 00:00 History (Xr)] oxyCODONE [roxiCODONE] 5 mg PO Q4HR PRN 11/26/18 11/26/18 11/25/18 09:00 History Active Medications: Generic Name Dose Route Start Last Admin Trade Name Freq PRN Reason Stop Dose Admin Acetaminophen 650 mg 11/25/18 16:28 Tylenol PO Q6H PRN Non Cardiac Pain or Temp>100.5 Amlodipine Besylate 10 mg 12/05/18 15:00 12/06/18 09:41 Norvasc PO 10 mg QDAY EFREN Administration Ascorbic Acid 250 mg 11/26/18 08:00 12/06/18 09:43 Vitamin C PO 250 mg QDAY EFREN Administration Aspirin 325 mg 11/26/18 08:00 12/06/18 09:38 Ecotrin PO 325 mg QDAY EFREN Administration Bisacodyl 10 mg 11/25/18 16:28 Dulcolax [place] QDAY PRN Constipation Carvedilol 25 mg 11/25/18 22:00 12/06/18 09:39 Coreg PO 25 mg BID EFREN Administration Clonidine HCl 0.1 mg 12/06/18 00:00 12/06/18 09:40 Catapres PO 0.1 mg Q8H EFREN Administration Clonidine HCl 0.2 mg 12/06/18 00:00 12/06/18 09:42 Catapres PO 0.2 mg Q8H EFREN Administration Dextrose 50 ml 11/25/18 16:08 D50w (25gm) Syringe IV PRN PRN Hypoglycemia Diphenoxylate HCl/Atropine 1 tab 12/03/18 10:00 Lomotil PO Q6H PRN Diarrhea Fluticasone Propionate 100 mcg 12/03/18 10:00 12/06/18 09:48 Flonase NS 100 mcg QDAY EFREN Administration Heparin Sodium (Porcine) 5,000 unit 11/25/18 22:00 12/06/18 06:58 Heparin SUB-Q 5,000 unit Q8HR EFREN Administration Hydralazine HCl 10 mg 11/28/18 12:30 12/05/18 06:42 Apresoline IV 10 mg Q4H PRN Administration Hypertension Hydralazine HCl 50 mg 12/04/18 22:00 12/06/18 09:38 Apresoline PO 50 mg BID EFREN Administration Vancomycin HCl 1 gm in 250 mls @ 167.007 mls/hr 11/28/18 22:00 12/05/18 23:57 Vancomycin/Ns 1 Gm/250 Ml IV 12/06/18 23:59 100 mls/hr Q24H EFREN Administration Insulin Glargine 35 units 11/25/18 21:00 12/05/18 23:02 Lantus SUB-Q 35 units QHS EFREN Administration Insulin Human Lispro 0 unit 11/25/18 22:00 12/06/18 09:36 Humalog SUB-Q 3 unit ACHS EFREN Administration Protocol Ketoconazole 1 applic 12/01/18 22:00 12/06/18 09:47 Nizoral TP 12/08/18 21:59 1 applic BID EFREN Administration Lisinopril 20 mg 12/02/18 15:00 12/06/18 09:41 Zestril PO 20 mg QDAY EFREN Administration Ondansetron HCl 4 mg 11/25/18 16:28 Zofran Odt PO Q8H PRN Nausea And Vomiting Oxycodone HCl 5 mg 11/25/18 16:32 12/04/18 21:55 Roxicodone PO 5 mg Q6H PRN Administration Pain, Moderate (4-6) Oxycodone HCl 10 mg 11/28/18 15:10 12/06/18 07:03 Roxicodone PO 10 mg Q6H PRN Administration Pain , Severe (7-10) Pantoprazole Sodium 20 mg 11/26/18 08:00 12/06/18 09:38 Protonix PO 20 mg QDAY EFREN Administration Polyethylene Glycol 17 gm 11/25/18 16:28 Miralax 3350 PO QDAY PRN Constipation Pravastatin Sodium 20 mg 11/25/18 21:00 12/05/18 23:08 Pravachol PO 20 mg QHS EFREN Administration Trazodone HCl 50 mg 12/04/18 19:17 12/04/18 21:54 Desyrel PO 50 mg QHS PRN Administration Insomnia Zinc Sulfate 220 mg 11/26/18 08:00 12/06/18 09:42 Zinc Sulfate PO 220 mg QDAY EFREN Administration
[2018-12-06] MEDS: APRESOLINE IV PRN (20:21)
[2018-12-06] MEDS: PRAVACHOL PO SCH (21:00)
[2018-12-06] MEDS: VANCOMYCIN/NS 1 GM/250 ML 1 GM/250 ML BAG IV SCH (22:00)
[2018-12-06] MEDS: LANTUS SUB-Q SCH (23:58)
[2018-12-07] MEDS: CATAPRES PO SCH ×7 (00:08→17:58)
[2018-12-07] MEDS: ROXICODONE PO PRN ×2 (00:12→22:36)
[2018-12-07] MEDS: DESYREL PO PRN ×2 (00:13→22:22)
[2018-12-07] MEDS ORDERED: APRESOLINE IV ONE (01:41)
[2018-12-07] MEDS: APRESOLINE IV PRN ×2 (04:40→19:11)
[2018-12-07] MEDS: HEPARIN SUB-Q SCH ×3 (06:00→22:22)
[2018-12-07 07:53] LABS: BUN/Creatinine Ratio 14; Blood Urea Nitrogen 20 mg/dL (9-20); Calcium 8.1 mg/dL (8.4-10.2); Hemolysis Index 4
[2018-12-07] MEDS: HumaLOG SUB-Q SCH ×4 (09:08→22:30)
[2018-12-07] MEDS: VITAMIN C PO SCH (09:41)
[2018-12-07] MEDS: ECOTRIN PO SCH (09:41)
[2018-12-07] MEDS: PROTONIX PO SCH (09:42)
[2018-12-07] MEDS: NORVASC PO SCH (09:42)
[2018-12-07] MEDS: ZINC SULFATE PO SCH (09:42)
[2018-12-07] MEDS: ZESTRIL PO SCH ×2 (09:42→22:21)
[2018-12-07] MEDS: APRESOLINE PO SCH ×3 (09:43→20:12)
[2018-12-07] MEDS: COREG PO SCH ×2 (09:44→22:22)
[2018-12-07] MEDS: NIZORAL TP SCH ×3 (09:50→22:28)
[2018-12-07] MEDS: FLONASE NS SCH (09:51)
--- NOTE | 2018-12-07 13:47 | Progress Note ---
Assessment and Plan Assessment: -CKD stage 2- suspect he has CKD in setting of DM/HTN -nephrotic range proteinuria (6.3g on spot check)- likely related to DM, however will perform secondary workup and consider biopsy outpatient -kidney stone- 1.1cm non-obstructing stone noted on ultrasound -Hypertension- improving -Diabetes Mellitus type 2 -History of Left and Right BKA -MRSA bacteremia: continue vancomycin through 12/05 Plan: -discussed importance of strong BP control and symptoms concerning for hypertensive urgency/emergency. Goal BP<130/80 -continue low salt diet, lifestyle modifications -continue bp meds, add hctz for bp control -given proteinuria, will send SPEP, free light chains. normal HIV, hepatitis serologies negative -diabetic control per hospital team -will ensure follow up after discharge -avoidance of nephrotoxins, renally dose medications if applicable cr is stable at this time, 1.4 and at baseline will follow peripherally Subjective Date of service: 12/07/18 Principal diagnosis: Left BKA, ADL and mobility deficits Interval history: resting in bed today Objective - Exam Narrative Exam: General appearance: well-developed, well-nourished, appears stated age EENT: ATNC, PERRL, mucous membranes moist Neck: Present: neck supple, trachea midline Respiratory: Clear to Auscultation Heart: regular, normal heart rate, S1S2, no murmurs Gastrointestinal: Present: normal. Absent: tenderness, distended, masses, guarding Integumentary: no rash Neurologic: no focal deficit, alert and oriented x3 Musculoskeletal: Absent: deformities, joint swelling Psychiatric: mood/affect appropriate, cooperative - Vital Signs Vital signs: Vital Signs - 12hr 12/07/18 12/07/18 12/07/18 02:24 04:21 04:40 Temperature 97.8 F Pulse Rate 84 82 Respiratory 20 18 Rate Blood Pressure 166/82 182/92 182/92 Blood Pressure [Left] O2 Sat by Pulse 98 Oximetry 12/07/18 12/07/18 12/07/18 05:30 08:39 09:42 Temperature 98.0 F Pulse Rate 87 87 Respiratory 20 Rate Blood Pressure 169/83 169/83 Blood Pressure 163/85 [Left] O2 Sat by Pulse 99 Oximetry 12/07/18 12/07/18 12/07/18 09:43 09:44 12:54 Temperature 98.5 F Pulse Rate 87 87 81 Respiratory 18 Rate Blood Pressure 169/83 169/83 162/85 Blood Pressure [Left] O2 Sat by Pulse 100 Oximetry - Lab 12/02/18 06:53 12/07/18 07:13 Most recent lab results Calcium 8.1 mg/dL (8.4-10.2) L 12/07/18 07:13 Phosphorus 2.30 mg/dL (2.5-4.5) L 12/03/18 00:35 73.4 mg/dL (0.1-20.0) H 12/03/18 Unknown 463 mg/dL (5-11.8) H 12/03/18 Unknown Medications & Allergies - Medications Allergies/Adverse Reactions: Allergies metformin Allergy (Verified 11/25/18 20:02) Anaphylaxis Penicillins Allergy (Verified 11/25/18 20:01) Anaphylaxis Home Medications: Home Medications Medication Instructions Recorded Confirmed Last Taken Type Acetaminophen [Acetaminophen ER] 650 mg PO Q6HR PRN 11/26/18 11/26/18 Unknown History Ascorbic Acid [Vitamin C] 250 mg PO QDAY 11/26/18 11/26/18 11/24/18 09:00 History Carvedilol [Coreg] 25 mg PO BID 11/26/18 11/26/18 11/25/18 09:05 History Clonidine HCl [Catapres] 0.3 mg PO TID 11/26/18 11/26/18 11/25/18 14:40 History Deltasone 40 mg PO QDAY 11/26/18 11/26/18 11/25/18 09:00 History Famotidine [Pepcid] 20 mg PO BID 11/26/18 11/26/18 11/25/18 09:00 History Heparin Sodium,Porcine [Heparin 5,000 unit SUB-Q Q8HR 11/26/18 11/26/18 11/25/18 09:00 History Sodium 5000 unit/ml 1ml vial] Insulin Detemir [Levemir VIAL] 30 units SC QHS 11/26/18 11/26/18 11/25/18 21:45 History NIFEdipine XL [Procardia Xl] 60 mg PO QDAY 11/26/18 11/26/18 11/24/18 09:00 History Pravastatin 20 mg QDAY 11/26/18 11/26/18 11/25/18 21:45 History Vancomycin/0.9 % Sod Chloride 1,500 mg IV Q24HR 11/26/18 11/26/18 11/24/18 21:45 History [Vanco 1.5 gm/250 ml-0.9% NaCl] Zinc Sulfate 220 mg PO QDAY 11/26/18 11/26/18 11/25/18 09:00 History dilTIAZem HCl [Diltiazem 24Hr ER 120 mg PO QDAY 11/26/18 11/26/18 11/26/18 00:00 History (Xr)] oxyCODONE [roxiCODONE] 5 mg PO Q4HR PRN 11/26/18 11/26/18 11/25/18 09:00 History Active Medications: Generic Name Dose Route Start Last Admin Trade Name Freq PRN Reason Stop Dose Admin Acetaminophen 650 mg 11/25/18 16:28 Tylenol PO Q6H PRN Non Cardiac Pain or Temp>100.5 Amlodipine Besylate 10 mg 12/05/18 15:00 12/07/18 09:42 Norvasc PO 10 mg QDAY EFREN Administration Ascorbic Acid 250 mg 11/26/18 08:00 12/07/18 09:41 Vitamin C PO 250 mg QDAY EFREN Administration Aspirin 325 mg 11/26/18 08:00 12/07/18 09:41 Ecotrin PO 325 mg QDAY EFREN Administration Bisacodyl 10 mg 11/25/18 16:28 Dulcolax [place] QDAY PRN Constipation Carvedilol 25 mg 11/25/18 22:00 12/07/18 09:44 Coreg PO 25 mg BID EFREN Administration Clonidine HCl 0.1 mg 12/06/18 00:00 12/07/18 09:44 Catapres PO 0.1 mg Q8H EFREN Administration Clonidine HCl 0.2 mg 12/06/18 00:00 12/07/18 09:43 Catapres PO 0.2 mg Q8H EFREN Administration Dextrose 50 ml 11/25/18 16:08 D50w (25gm) Syringe IV PRN PRN Hypoglycemia Diphenoxylate HCl/Atropine 1 tab 12/03/18 10:00 Lomotil PO Q6H PRN Diarrhea Fluticasone Propionate 100 mcg 12/03/18 10:00 12/07/18 09:51 Flonase NS 100 mcg QDAY EFREN Administration Heparin Sodium (Porcine) 5,000 unit 11/25/18 22:00 12/07/18 13:35 Heparin SUB-Q 5,000 unit Q8HR EFREN Administration Hydralazine HCl 10 mg 11/28/18 12:30 12/07/18 04:40 Apresoline IV 10 mg Q4H PRN Administration Hypertension Hydralazine HCl 100 mg 12/06/18 14:00 12/07/18 13:35 Apresoline PO 100 mg TID EFREN Administration Insulin Glargine 35 units 11/25/18 21:00 12/06/18 23:58 Lantus SUB-Q 35 units QHS EFREN Administration Insulin Human Lispro 0 unit 11/25/18 22:00 12/07/18 13:42 Humalog SUB-Q 3 unit ACHS [facility] Administration Protocol Ketoconazole 1 applic 12/01/18 22:00 12/07/18 09:59 Nizoral TP 12/08/18 21:59 Not Given BID [facility] Lisinopril 20 mg 12/06/18 23:00 12/07/18 09:42 Zestril PO 20 mg BID EFREN Administration Ondansetron HCl 4 mg 11/25/18 16:28 Zofran Odt PO Q8H PRN Nausea And Vomiting Oxycodone HCl 5 mg 11/25/18 16:32 12/04/18 21:55 Roxicodone PO 5 mg Q6H PRN Administration Pain, Moderate (4-6) Oxycodone HCl 10 mg 11/28/18 15:10 12/07/18 00:12 Roxicodone PO 10 mg Q6H PRN Administration Pain , Severe (7-10) Pantoprazole Sodium 20 mg 11/26/18 08:00 12/07/18 09:42 Protonix PO 20 mg QDAY EFREN Administration Polyethylene Glycol 17 gm 11/25/18 16:28 Miralax 3350 PO QDAY PRN Constipation Pravastatin Sodium 20 mg 11/25/18 21:00 12/06/18 21:00 Pravachol PO 20 mg QHS EFREN Administration Trazodone HCl 50 mg 12/04/18 19:17 12/07/18 00:13 Desyrel PO 50 mg QHS PRN Administration Insomnia Zinc Sulfate 220 mg 11/26/18 08:00 12/07/18 09:42 Zinc Sulfate PO 220 mg QDAY EFREN Administration
[2018-12-07] MEDS: HCTZ PO SCH (17:59)
[2018-12-07] MEDS: LANTUS SUB-Q SCH (22:22)
[2018-12-07] MEDS: PRAVACHOL PO SCH (22:22)
[2018-12-08] MEDS: CATAPRES PO SCH ×6 (00:25→17:18)
[2018-12-08] MEDS: HEPARIN SUB-Q SCH ×3 (05:40→21:31)
[2018-12-08] MEDS: APRESOLINE IV PRN (05:56)
[2018-12-08 08:09] LABS: BUN/Creatinine Ratio 11; Blood Urea Nitrogen 17 mg/dL (9-20); Calcium 8.1 mg/dL (8.4-10.2); Hemolysis Index 0
[2018-12-08] MEDS: HumaLOG SUB-Q SCH ×4 (08:31→21:30)
[2018-12-08] MEDS: ZINC SULFATE PO SCH (09:30)
[2018-12-08] MEDS: APRESOLINE PO SCH ×3 (09:30→21:28)
[2018-12-08] MEDS: ECOTRIN PO SCH (09:30)
[2018-12-08] MEDS: COREG PO SCH ×2 (09:30→21:28)
[2018-12-08] MEDS: ZESTRIL PO SCH ×2 (09:30→21:32)
[2018-12-08] MEDS: NORVASC PO SCH (09:30)
[2018-12-08] MEDS: HCTZ PO SCH (09:30)
[2018-12-08] MEDS: FLONASE NS SCH (09:31)
[2018-12-08] MEDS: VITAMIN C PO SCH (09:31)
[2018-12-08] MEDS: PROTONIX PO SCH (09:31)
[2018-12-08] MEDS: NIZORAL TP SCH (09:34)
[2018-12-08] MEDS: ROXICODONE PO PRN ×3 (09:38→21:39)
--- NOTE | 2018-12-08 09:52 | Progress Note ---
Subjective Date of service: 12/08/18 Principal diagnosis: Left BKA, ADL and mobility deficits Interval history: 48-year-old male who presented to the ER with pain and swelling with purulent drainage from the left diabetic foot wound. He had a recent medication of this second digit. He underwent a left BKA on November 20. Blood cultures were positive for MRSA and was started on IV vancomycin which she will continue through 12/05. Initial blood cultures and postop blood cultures were positive as stated but follow-up blood cultures on November 22 were negative. Patient has a right BKA and has been ambulatory with a prosthesis. States that he recently was scheduled to see his digital marketing executive for a retrofit. Oddly enough he has a different prosthesis for each leg. I advised him it would be hernandez to have the same digital marketing executive for both legs and the choice would be up to him as far as which one he wants to continue with. Patient states that he did have phantom pain and sensation in the right lower extremity with his prior amputation from approximately 2011 however he has not experienced any phantom sensation or phantom pain currently with his left amputation. Dressing was taken down with therapy and no malodorous or purulent discharge was noted. He did have some slight bloody drainage at the anterior medial aspect on the staple line. Participating in therapy and making progress. +BM. Denies palpitations, dyspnea, cough, N/V, or joint pain. Pain controlled with medications. BP was out of control this weekend, increased lisinopril. Has required prn IV hydralazine. [facility] made existing prosthesis usuable for the moment, will continue to try to improve mobility. Left wrist sore and swollen again. Ordered U/S earlier but that appears to be a U/S, reordered. Otherwise doing well. All records, vitals, labs and medications were reviewed. No other issues per patient, nursing or therapy. Objective - Exam Narrative Exam: MUSCULOSKELETAL SPECIALTY EXAM CONSTITUTIONAL: Well developed, well nourished, appropriately groomed, obese EENT: EOMI. Hearing intact to soft voice. RESPIRATORY: Clear to auscultation bilaterally, no increased work of breathing CARDIOVASCULAR: Regular Rate/ Rhythm, no swelling, edema or tenderness in BUE or BLE. All extremities warm. GI: + bowel sounds, soft, NTTP, nondistended. INTEGUMENTARY: Normal, no lesion, rash, masses or bruising noted in extremities, except for surgical wound on left lower extremity, ne intact, wrapped MUSCULOSKELETAL: BUE and BLE normal without defect, crepitus, subluxation, effusion, arthritic changes or TTP except for bilateral BKA. Swelling and TTP L wrist/hand RUE 4+/5, LUE 4-/5, both good ROM, with normal tone. BLE 4/5 good ROM, with normal tone NEURO: CN 2-12 grossly intact. Sensation intact in all extremities. No tremor noted in 4 extremities. POSTURE and GAIT: Sitting posture good. Balance appears reasonable. Will assess gait with therapy. Squat pivot transfer with prosthetic leg reasonable PSYCH: Alert, oriented x3, affect appears normal. Insight appears intact. - Constitutional Vitals: Vital Signs - 12hr 12/07/18 12/08/18 12/08/18 22:00 02:32 05:48 Temperature 37.1 C 36.8 C Pulse Rate 85 89 Respiratory 18 16 Rate Respiratory 17 Rate [Left Lower Leg] Blood Pressure 182/86 Blood Pressure 155/83 [Left] O2 Sat by Pulse 98 98 Oximetry 12/08/18 12/08/18 12/08/18 05:51 07:46 09:38 Temperature 36.8 C 37.0 C Pulse Rate 89 93 H Respiratory 16 18 20 Rate Respiratory Rate [Left Lower Leg] Blood Pressure 174/91 Blood Pressure 182/86 [Left] O2 Sat by Pulse 98 98 Oximetry 12/08/18 09:39 Temperature Pulse Rate 90 Respiratory Rate Respiratory Rate [Left Lower Leg] Blood Pressure Blood Pressure [Left] O2 Sat by Pulse Oximetry - Allied health notes Allied health notes reviewed: nursing, PT, OT FIMS assessment as documented by PT/OT/ST: Grooming Patient cleans teeth/dentures: Yes Patient joseph/brushes hair: Yes Patient washes, rinses and Yes dries face: Patient washes, rinses and Yes dries hands: Patient shaves: Yes Patient performs (no make-up/ 07/17 (100%) shaving): Patient performs (w/ make-up/ 5/5 (100%) shaving): Grooming FIM Score 6. Modified [place] (Needs equipment/device . Extra time.) Toileting Toileting Device Commode over Toilet Patient able to: Adjust clothes before,Clean self,Adjust clothes after Patient able to perform: 3/3 (100%) Toileting FIM Score 5. Supv./Set-Up (Needs stand-by, set-up, applying prosth/orth.) Social interaction/Memory/Problem solving Social Interaction FIM Score 6. Mod. [place] (Mostly appropriate. May need meds. No supv.) Memory FIM Score 6. Modified [place](Mild difficulty remembering people/routines.) Problem Solving FIM Score 6. Mod. [place] (Mild difficulty or needs more time w/ complex.) Transfers Mode of Locomotion: Wheelchair Bed/Chair/Wheelchair Transfers 5. Supervision (Needs supv. or set-up for FIM Score sliding board, foot rests.) Toilet Transfers FIM Score 6. Modified [place] (Uses device, special seat or more time.) Patient transferred to: Shower Shower Transfers FIM Score 5. Supervision (Needs supv. or set-up with device.) Locomotion- Stairs Stairs FIM Score 0. Activity does not occur Locomotion- walk/wheelchair Most Frequent Mode of Wheelchair Locomotion: Walking FIM Score 0. Activity does not occur Wheelchair Propulsion Distance 200 Wheelchair FIM Score 6. Modified [place] (Wheels a minimum of 150 ft.) Eating Eating FIM Score 6. Modified [place] (Special consistency or uses device.) Dressing-Upper body Patient retrieves clothing Yes items: Patient applies/removes UE Yes prosthesis or orthosis: Upper Body Dressing FIM Score 6. Modified [place] (Needs equipment, velcro or pros./orth.) Dressing-lower body Patient retrieves clothing Yes items: Patient applies/removes LE Yes prosthesis or orthosis: Lower Body Dressing FIM Score 6. Modified [place] (Needs equipment, velcro or pros./orth.) - Labs CBC & Chem 7: 12/02/18 06:53 12/08/18 06:52 Labs: Laboratory Results - last 72 hr 12/05/18 12/05/18 12/05/18 11:57 16:07 21:24 Sodium Potassium Chloride Carbon Dioxide Anion Gap BUN Creatinine Estimated GFR BUN/Creatinine Ratio Glucose POC Glucose 172 H 181 H 230 H Calcium 12/06/18 12/06/18 12/06/18 06:25 08:01 12:12 Sodium 140 Potassium 4.0 Chloride 108.0 H Carbon Dioxide 21 L Anion Gap 15 BUN 28 H Creatinine 1.6 H Estimated GFR 57 BUN/Creatinine Ratio 18 Glucose 154 H POC Glucose 171 H 165 H Calcium 8.3 L 12/06/18 12/06/18 12/07/18 16:29 22:01 07:13 Sodium 140 Potassium 3.7 Chloride 107.2 H Carbon Dioxide 23 Anion Gap 14 BUN 20 Creatinine 1.4 Estimated GFR > 60 BUN/Creatinine Ratio 14 Glucose 77 POC Glucose 176 H 146 H Calcium 8.1 L 12/07/18 12/07/18 12/07/18 08:10 11:57 16:45 Sodium Potassium Chloride Carbon Dioxide Anion Gap BUN Creatinine Estimated GFR BUN/Creatinine Ratio Glucose POC Glucose 73 162 H 106 H Calcium 12/08/18 12/08/18 06:52 07:54 Sodium 141 Potassium 3.8 Chloride 107.4 H Carbon Dioxide 24 Anion Gap 13 BUN 17 Creatinine 1.5 Estimated GFR > 60 BUN/Creatinine Ratio 11 Glucose 129 H POC Glucose 138 H Calcium 8.1 L Assessment and Plan Left BKA: Continue post surgical care with dressing changes every other day and when necessary. Monitor for any signs of wound infection. Ne to be removed in 6-8 weeks per surgery. Monitor for any signs of phantom pain or sensation. Strap Cutting Machine Operator when able. Advised patient to choose one digital marketing executive for both legs -having difficulty with the digital marketing executive that he chose continue with, m ay need to switch. Continue stump protector. Right BKA: In process of having prosthesis remade. Hypertension: Continue medications monitor for normotension adjust as needed. Hydralazine with prn. Nephrology consulted. Diabetes type 2, poorly controlled: Continue Carb controlled diet, continue insulin and adjust as needed. Outside hospital A1c 10.0. Anemia: Mixed chronic and postacute blood loss. Monitor CBC GERD: Continue Protonix monitor MRSA bacteremia: Last blood culture performed on November 22 was negative. This is post amputation of November 20. We'll continue to monitor and will DC isolation. Continue vancomycin through 12/05. Hyperlipidemia: Continue statin Monitor leukocytosis and renal function GLU - elevated due to prednisone taper - SSI L wrist/hand swelling - feels like ganglion cyst. U/S ordered. Pain level not c/w gout Z73.6 ADL dysfunction: OT will work on improving ability to perform ADLs (including assistive devices) to increase independence and decrease caregiver burden and improve functional transfers and mobility training. R26.2 Difficulty walking: PT will work on gait training and proper use of assistive devices and advance as appropriate to use of stairs and outside ambulation on uneven surfaces. R26.81 Unsteadiness on feet: PT will work on improving static and dynamic sitting and standing balance as well as proper use of assistive devices to d ecrease risk of falls. R26.89 Abnormality of gait: PT will work to improve safety and efficiency of gait through neuromotor training and gait training along with instruction on proper use of assistive devices. M62.81 Muscle weakness: PT & OT will work on strengthening exercises to improve functional strength including mixture of closed and open kinetic chain exercises. R53.81 Debility: PT & OT will work on improving overall functional status to improve participation with ADLs, mobility and social involvement. R53.83 Fatigue: PT & OT will work on improving endurance through aerobic exercises and therapeutic activity while monitoring patients tolerance for activity and vital signs as needed. DVT ppx: Heparin TID Pain: Continue physical modalities in therapy and pain medications as needed to achieve functional pain control. Currently well controlled with Roxicodone as dosed Sleep: Monitor and address as needed. Bowel: Monitor and address as needed. Appetite: Monitor and address as needed. Discharge planning: Pending therapy progress and care plan meeting. Will continue discussion with therapy team, SW, patient and family. Restrictions/ Precautions: Falls WB status: FWB Functional Hx: ADLs: Independent Cognition: Independent Mobility: Walking independently with right lower extremity prosthesis Barriers to Discharge: Decreased mobility and ability to perform self care, balance deficits, weakness, decreased endurance and new second BKA Estimated Length of Stay: 14-18 days Discharge Destination: Home with family Prosthetics: Mr. Lee had a previous right BKA and that current prosthesis is nonfunctional and ill fitting due to normal wear and tear and decreased residual limb volume. At this time the pin does not always lock into the leg but he has been using it in this manner. He attempted, and we also attempted, to have the original company make repairs to the leg or to replace it. This has proved difficult and so we contacted [facility] to assist us with improving his ability for functional ambulation. Even with the issues with his current leg he was still utilizing it and walking as best he could. He now has a new left BKA. He still has the desire to ambulate and has the ability to ambulate using bilateral prosthesis. With the patient's current physical condition and his experience in walking with a unilateral prosthesis I would expect him to continue to function at his previous level of K3. Previously he was walking in his community including on unlevel surfaces in order to perform his activities needed for both therapeutic activities as well as activities of daily living. These activities included walking around the home, outside the home, fishing at a local [employer], light home maintenance, driving, social activities, navigation of stairs which he has in the home, and cooking. He is out of the house at least 5 out of 7 days. He does not have any comorbidities that would impact his ability to function with the prosthesis and he was previously functioning with a unilateral prosthesis.
--- NOTE | 2018-12-08 11:11 | Progress Note ---
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 He is already following for chronic kidney disease Patient seems to be complaining of tenderness in his left arm Denies any fevers chills history of gout is currently undergoing rehabilitation Objective - Vital Signs Vital signs: Vital Signs - 12hr 12/08/18 12/08/18 12/08/18 02:32 05:48 05:51 Temperature 98.7 F 98.3 F 98.3 F Pulse Rate 85 89 89 Respiratory 18 16 16 Rate Blood Pressure 182/86 Blood Pressure 155/83 182/86 [Left] O2 Sat by Pulse 98 98 98 Oximetry 12/08/18 12/08/18 12/08/18 07:46 09:38 09:39 Temperature 98.6 F Pulse Rate 93 H 90 Respiratory 18 20 Rate Blood Pressure 174/91 Blood Pressure [Left] O2 Sat by Pulse 98 Oximetry - General Appearance General appearance: well-developed, well-nourished EENT: ATNC, PERRL, mucous membranes moist Neck: no JVD Respiratory: Present: Clear to Ascultation Cardiology: regular, S1S2 Gastrointestinal: normal, normoactive bowel sounds Integumentary: erythema Neurologic: alert and oriented x3 Musculoskeletal: other (BKA) Psychiatric: mood/affect appropriate - Lab 12/02/18 06:53 12/08/18 06:52 Most recent lab results Calcium 8.1 mg/dL (8.4-10.2) L 12/08/18 06:52 Phosphorus 2.30 mg/dL (2.5-4.5) L 12/03/18 00:35 73.4 mg/dL (0.1-20.0) H 12/03/18 Unknown 463 mg/dL (5-11.8) H 12/03/18 Unknown Medications & Allergies - Medications Allergies/Adverse Reactions: Allergies metformin Allergy (Verified 11/25/18 20:02) Anaphylaxis Penicillins Allergy (Verified 11/25/18 20:01) Anaphylaxis Home Medications: Home Medications Medication Instructions Recorded Confirmed Last Taken Type Acetaminophen [Acetaminophen ER] 650 mg PO Q6HR PRN 11/26/18 11/26/18 Unknown History Ascorbic Acid [Vitamin C] 250 mg PO QDAY 11/26/18 11/26/18 11/24/18 09:00 Hist ory Carvedilol [Coreg] 25 mg PO BID 11/26/18 11/26/18 11/25/18 09:05 History Clonidine HCl [Catapres] 0.3 mg PO TID 11/26/18 11/26/18 11/25/18 14:40 History Deltasone 40 mg PO QDAY 11/26/18 11/26/18 11/25/18 09:00 History Famotidine [Pepcid] 20 mg PO BID 11/26/18 11/26/18 11/25/18 09:00 History Heparin Sodium,Porcine [Heparin 5,000 unit SUB-Q Q8HR 11/26/18 11/26/18 11/25/18 09:00 History Sodium 5000 unit/ml 1ml vial] Insulin Detemir [Levemir VIAL] 30 units SC QHS 11/26/18 11/26/18 11/25/18 21:45 History NIFEdipine XL [Procardia Xl] 60 mg PO QDAY 11/26/18 11/26/18 11/24/18 09:00 History Pravastatin 20 mg QDAY 11/26/18 11/26/18 11/25/18 21:45 History Vancomycin/0.9 % Sod Chloride 1,500 mg IV Q24HR 11/26/18 11/26/18 11/24/18 21:45 History [Vanco 1.5 gm/250 ml-0.9% NaCl] Zinc Sulfate 220 mg PO QDAY 11/26/18 11/26/18 11/25/18 09:00 History dilTIAZem HCl [Diltiazem 24Hr ER 120 mg PO QDAY 11/26/18 11/26/18 11/26/18 00:00 History (Xr)] oxyCODONE [roxiCODONE] 5 mg PO Q4HR PRN 11/26/18 11/26/18 11/25/18 09:00 History Active Medications: Generic Name Dose Route Start Last Admin Trade Name Freq PRN Reason Stop Dose Admin Acetaminophen 650 mg 11/25/18 16:28 Tylenol PO Q6H PRN Non Cardiac Pain or Temp>100.5 Amlodipine Besylate 10 mg 12/05/18 15:00 12/08/18 09:30 Norvasc PO 10 mg QDAY EFREN Administration Ascorbic Acid 250 mg 11/26/18 08:00 12/08/18 09:31 Vitamin C PO 250 mg QDAY EFREN Administration Aspirin 325 mg 11/26/18 08:00 12/08/18 09:30 Ecotrin PO 325 mg QDAY EFREN Administration Bisacodyl 10 mg 11/25/18 16:28 Dulcolax DE QDAY PRN Constipation Carvedilol 25 mg 11/25/18 22:00 12/08/18 09:30 Coreg PO 25 mg BID EFREN Administration Clonidine HCl 0.1 mg 12/06/18 00:00 12/08/18 09:39 Catapres PO 0.1 mg Q8H EFREN Administration Clonidine HCl 0.2 mg 12/06/18 00:00 12/08/18 09:52 Catapres PO 0.2 mg Q8H EFREN Administration Dextrose 50 ml 11/25/18 16:08 D50w (25gm) Syringe IV PRN PRN Hypoglycemia Diphenoxylate HCl/Atropine 1 tab 12/03/18 10:00 Lomotil PO Q6H PRN Diarrhea Fluticasone Propionate 100 mcg 12/03/18 10:00 12/08/18 09:31 Flonase NS Not Given QDAY [facility] Heparin Sodium (Porcine) 5,000 unit 11/25/18 22:00 12/08/18 05:40 Heparin SUB-Q 5,000 unit Q8HR EFREN Administration Hydralazine HCl 10 mg 11/28/18 12:30 12/08/18 05:56 Apresoline IV 10 mg Q4H PRN Administration Hypertension Hydralazine HCl 100 mg 12/06/18 14:00 12/08/18 09:30 Apresoline PO 100 mg TID EFREN Administration Hydrochlorothiazide 25 mg 12/07/18 14:00 12/08/18 09:30 Hctz PO 25 mg QDAY EFREN Administration Insulin Glargine 35 units 11/25/18 21:00 12/07/18 22:22 Lantus SUB-Q 35 units QHS EFREN Administration Insulin Human Lispro 0 unit 11/25/18 22:00 12/08/18 08:31 Humalog SUB-Q Not Given [facility] Protocol Ketoconazole 1 applic 12/01/18 22:00 12/08/18 09:34 Nizoral TP 12/08/18 21:59 1 applic BID [facility] Administration Lisinopril 20 mg 12/06/18 23:00 12/08/18 09:30 Zestril PO 20 mg BID EFREN Administration Ondansetron HCl 4 mg 11/25/18 16:28 Zofran Odt PO Q8H PRN Nausea And Vomiting Oxycodone HCl 5 mg 11/25/18 16:32 12/04/18 21:55 Roxicodone PO 5 mg Q6H PRN Administration Pain, Moderate (4-6) Oxycodone HCl 10 mg 11/28/18 15:10 12/08/18 09:38 Roxicodone PO 10 mg Q6H PRN Administration Pain , Severe (7-10) Pantoprazole Sodium 20 mg 11/26/18 08:00 12/08/18 09:31 Protonix PO 20 mg QDAY EFREN Administration Polyethylene Glycol 17 gm 11/25/18 16:28 Miralax 3350 PO QDAY PRN Constipation Pravastatin Sodium 20 mg 11/25/18 21:00 12/07/18 22:22 Pravachol PO 20 mg QHS EFREN Administration Trazodone HCl 50 mg 12/04/18 19:17 12/07/18 22:22 Desyrel PO 50 mg QHS PRN Administration Insomnia Zinc Sulfate 220 mg 11/26/18 08:00 12/08/18 09:30 Zinc Sulfate PO 220 mg QDAY EFREN Administration
[2018-12-08] MEDS ORDERED: COLCHICINE PO ONE (19:30)
[2018-12-08 21:07] LABS: Albumin 2.3 g/dL (3.8-4.8); Gamma Globulin 1.6 g/dL (0.8-1.7)
[2018-12-08] MEDS: PRAVACHOL PO SCH (21:28)
[2018-12-08] MEDS: LANTUS SUB-Q SCH (21:31)
[2018-12-09] MEDS: CATAPRES PO SCH ×6 (01:10→18:50)
[2018-12-09] MEDS: HEPARIN SUB-Q SCH ×3 (05:06→21:47)
[2018-12-09 07:02] LABS: Calcium 8.1 mg/dL (8.4-10.2)
--- NOTE | 2018-12-09 09:34 | Progress Note ---
Subjective Date of service: 12/09/18 Principal diagnosis: Left BKA, ADL and mobility deficits Interval history: 48-year-old male who presented to the ER with pain and swelling with purulent drainage from the left diabetic foot wound. He had a recent medication of this second digit. He underwent a left BKA on November 20. Blood cultures were positive for MRSA and was started on IV vancomycin which she will continue through 12/05. Initial blood cultures and postop blood cultures were positive as stated but follow-up blood cultures on November 22 were negative. Patient has a right BKA and has been ambulatory with a prosthesis. States that he recently was scheduled to see his bacon de rinder for a retrofit. Oddly enough he has a different prosthesis for each leg. I advised him it would be hernandez to have the same bacon de rinder for both legs and the choice would be up to him as far as which one he wants to continue with. Patient states that he did have phantom pain and sensation in the right lower extremity with his prior amputation from approximately 2011 however he has not experienced any phantom sensation or phantom pain currently with his left amputation. Dressing was taken down with therapy and no malodorous or purulent discharge was noted. He did have some slight bloody drainage at the anterior medial aspect on the staple line. Participating in therapy and making progress. +BM. Denies palpitations, dyspnea, cough, N/V, or joint pain. Pain controlled with medications. BP better but still elevated, even with increased lisinopril. Has required prn IV hydralazine. Left wrist sore and swollen, U/S ordered was performed today. Reviewed images and report - looks cystic in nature with vascularity. MRI w contrast rec by radiology but unable due to renal function. Otherwise doing well. All records, vitals, labs and medications were reviewed. No other issues per patient, nursing or therapy. Objective - Exam Narrative Exam: MUSCULOSKELETAL SPECIALTY EXAM CONSTITUTIONAL: Well developed, well nourished, appropriately groomed, obese EENT: EOMI. Hearing intact to soft voice. RESPIRATORY: Clear to auscultation bilaterally, no increased work of breathing CARDIOVASCULAR: Regular Rate/ Rhythm, no swelling, edema or tenderness in BUE or BLE. All extremities warm. GI: + bowel sounds, soft, NTTP, nondistended. INTEGUMENTARY: Normal, no lesion, rash, masses or bruising noted in extremities, except for surgical wound on left lower extremity, ne intact, wrapped MUSCULOSKELETAL: BUE and BLE normal without defect, crepitus, subluxation, effusion, arthritic changes or TTP except for bilateral BKA. Swelling and TTP L wrist/hand RUE 4+/5, LUE 4-/5, both good ROM, with normal tone. BLE 4/5 good ROM, with normal tone NEURO: CN 2-12 grossly intact. Sensation intact in all extremities. No tremor noted in 4 extremities. POSTURE and GAIT: Sitting posture good. Balance appears reasonable. Able to hop with prosthesis and RW. Squat pivot transfer with prosthetic leg reasonable PSYCH: Alert, oriented x3, affect appears normal. Insight appears intact. - Constitutional Vitals: Vital Signs - 12hr 12/09/18 12/09/18 12/09/18 00:44 01:10 04:43 Temperature 37.3 C Pulse Rate 84 85 Pulse Rate [ 85 From Monitor] Respiratory 20 Rate Blood Pressure 155/78 Blood Pressure 162/80 [Left] O2 Sat by Pulse 99 Oximetry 12/09/18 08:01 Temperature 37.7 C H Pulse Rate 87 Pulse Rate [ From Monitor] Respiratory 20 Rate Blood Pressure Blood Pressure 165/82 [Left] O2 Sat by Pulse 99 Oximetry - Allied health notes Allied health notes reviewed: nursing, PT, OT FIMS assessment as documented by PT/OT/ST: Grooming Patient cleans teeth/dentures: Yes Patient joseph/brushes hair: Yes Patient washes, rinses and Yes dries face: Patient washes, rinses and Yes dries hands: Patient shaves: Yes Patient performs (no make-up/ /4 (100%) shaving): Patient performs (w/ make-up/ 5/5 (100%) shaving): Grooming FIM Score 6. Modified [place] (Needs equipment/device . Extra time.) Toileting Toileting Device Commode over Toilet Patient able to: Adjust clothes before,Clean self,Adjust clothes after Patient able to perform: 3/3 (100%) Toileting FIM Score 5. Supv./Set-Up (Needs stand-by, set-up, applying prosth/orth.) Social interaction/Memory/Problem solving Social Interaction FIM Score 7. Complete [place] (Interacts appropriately. Controls temper.) Memory FIM Score 7. Complete [place] (Remembers people and routines.) Problem Solving FIM Score 6. Mod. [place] (Mild difficulty or needs more time w/ complex.) Transfers Mode of Locomotion: Wheelchair Bed/Chair/Wheelchair Transfers 6. Modified [place] (Uses device, sliding FIM Score board, prosth./orth.) Toilet Transfers FIM Score 6. Modified [place] (Uses device, special seat or more time.) Patient transferred to: Shower Shower Transfers FIM Score 5. Supervision (Needs supv. or set-up with device.) Locomotion- Stairs Stairs FIM Score 0. Activity does not occur Locomotion- walk/wheelchair Most Frequent Mode of Wheelchair Locomotion: Ambulation Distance 2 Walking FIM Score 1. Total Assistance (Pt. < 25%, 2 or more person assist, or <50 ft.) Wheelchair Propulsion Distance 200 Wheelchair FIM Score 6. Modified [place] (Wheels a minimum of 150 ft.) Eating Eating FIM Score 6. Modified [place] (Special consistency or uses device.) Dressing-Upper body Patient retrieves clothing Yes items: Patient applies/removes UE Yes prosthesis or orthosis: Upper Body Dressing FIM Score 6. Modified [place] (Needs equipment, velcro or pros./orth.) Dressing-lower body Patient retrieves clothing Yes items: Patient applies/removes LE Yes prosthesis or orthosis: Lower Body Dressing FIM Score 6. Modified [place] (Needs equipment, velcro or pros./orth.) - Labs CBC & Chem 7: 12/02/18 06:53 12/09/18 06:16 Labs: Laboratory Results - last 72 hr 12/04/18 12/06/18 12/06/18 01:45 12:12 16:29 Sodium Potassium Chloride Carbon Dioxide Anion Gap BUN Creatinine Estimated GFR BUN/Creatinine Ratio Glucose POC Glucose 165 H 176 H Calcium Serum Total Protein 5.7 L Albumin 2.3 L Kderp-5-Tymroijir 0.3 Fppba-4-Gtepgonuk 0.8 Beta Globulins 0.4 Gamma Globulins 1.6 Abnorm Protein Band 1 see below PEP Interpretation see below H 12/06/18 12/07/18 12/07/18 22:01 07:13 08:10 Sodium 140 Potassium 3.7 Chloride 107.2 H Carbon Dioxide 23 Anion Gap 14 BUN 20 Creatinine 1.4 Estimated GFR > 60 BUN/Creatinine Ratio 14 Glucose 77 POC Glucose 146 H 73 Calcium 8.1 L Serum Total Protein Albumin Pkwlb-1-Afusbxlsj Nqzgr-1-Krqzklzqw Beta Globulins Gamma Globulins Abnorm Protein Band 1 PEP Interpretation 12/07/18 12/07/18 12/08/18 11:57 16:45 06:52 Sodium 141 Potassium 3.8 Chloride 107.4 H Carbon Dioxide 24 Anion Gap 13 BUN 17 Creatinine 1.5 Estimated GFR > 60 BUN/Creatinine Ratio 11 Glucose 129 H POC Glucose 162 H 106 H Calcium 8.1 L Serum Total Protein Albumin Qoelz-5-Wwyyrpjkq Amjoo-9-Vzwssejzi Beta Globulins Gamma Globulins Abnorm Protein Band 1 PEP Interpretation 12/08/18 12/08/18 12/08/18 07:54 13:42 16:58 Sodium Potassium Chloride Carbon Dioxide Anion Gap BUN Creatinine Estimated GFR BUN/Creatinine Ratio Glucose POC Glucose 138 H 257 H 173 H Calcium Serum Total Protein Albumin Qylww-0-Mgxzbmqcg Toaij-3-Qwzekftln Beta Globulins Gamma Globulins Abnorm Protein Band 1 PEP Interpretation 12/08/18 12/09/18 12/09/18 20:50 06:16 07:43 Sodium 138 Potassium 4.0 Chloride 104.2 Carbon Dioxide 23 Anion Gap 15 BUN 18 Creatinine 1.7 H Estimated GFR 53 BUN/Creatinine Ratio 11 Glucose 195 H POC Glucose 131 H 184 H Calcium 8.1 L Serum Total Protein Albumin Fhkqh-3-Pvyvasulm Xtzlw-2-Hyzhmaztt Beta Globulins Gamma Globulins Abnorm Protein Band 1 PEP Interpretation Assessment and Plan Left BKA: Continue post surgical care with dressing changes every other day and when necessary. Monitor for any signs of wound infection. Ne to be removed in 6-8 weeks per surgery. Monitor for any signs of phantom pain or sensation. Insurance Administrative Assistant when able. Advised patient to choose one bacon de rinder for both legs -having difficulty with the bacon de rinder that he chose continue with, may need to switch. Continue stump protector. Right BKA: In process of having prosthesis remade. Hypertension: Continue medications monitor for normotension adjust as needed. Hydralazine with prn. Nephrology consulted. On Clonidine, Amlodipine, Coreg, Hydralazine, Lisinopril, HCTZ Diabetes type 2, poorly controlled: Continue Carb controlled diet, continue insulin and adjust as needed. Reasonable control on unit. Outside hospital A1c 10.0. Anemia: Mixed chronic and postacute blood loss. Monitor CBC GERD: Continue Protonix monitor MRSA bacteremia: Last blood culture performed on November 22 was negative. This is post amputation of November 20. We'll continue to monitor andDC isolation. Vancomycin completed 12/05. Hyperlipidemia: Continue statin Monitor leukocytosis and renal function L wrist/hand swelling - c/w ganglion cyst. U/S ordered and reviewed. Pain level not c/w gout Z73.6 ADL dysfunction: OT will work on improving ability to perform ADLs (including assistive devices) to increase independence and decrease caregiver burden and improve functional transfers and mobility training. R26.2 Difficulty walking: PT will work on gait training and proper use of assistive devices and advance as appropriate to use of stairs and outside ambulation on uneven surfaces. R26.81 Unsteadiness on feet: PT will work on improving static and dynamic sitting and standing balance as well as proper use of assistive devices to decrease risk of falls. R26.89 Abnormality of gait: PT will work to improve safety and efficiency of gait through neuromotor training and gait training along with instruction on pr oper use of assistive devices. M62.81 Muscle weakness: PT & OT will work on strengthening exercises to improve functional strength including mixture of closed and open kinetic chain exercises. R53.81 Debility: PT & OT will work on improving overall functional status to improve participation with ADLs, mobility and social involvement. R53.83 Fatigue: PT & OT will work on improving endurance through aerobic exercises and therapeutic activity while monitoring patients tolerance for activity and vital signs as needed. DVT ppx: Heparin TID Pain: Continue physical modalities in therapy and pain medications as needed to achieve functional pain control. Currently well controlled with Roxicodone as dosed Sleep: Monitor and address as needed. Bowel: Monitor and address as needed. Appetite: Monitor and address as needed. Discharge planning: Pending therapy progress and care plan meeting. Will continue discussion with therapy team, SW, patient and family. Restrictions/ Precautions: Falls WB status: FWB Functional Hx: ADLs: Independent Cognition: Independent Mobility: Walking independently with right lower extremity prosthesis Barriers to Discharge: Decreased mobility and ability to perform self care, balance deficits, weakness, decreased endurance and new second BKA Estimated Length of Stay: 14-18 days Discharge Destination: Home with family Prosthetics: Mr. Lee had a previous right BKA and that current prosthesis is nonfunctional and ill fitting due to normal wear and tear and decreased residual limb volume. At this time the pin does not always lock into the leg but he has been using it in this manner. He attempted, and we also attempted, to have the original company make repairs to the leg or to replace it. This has proved difficult and so we contacted [facility] to assist us with improving his ability for functional ambulation. Even with the issues with his current leg he was still utilizing it and walking as best he could. He now has a new left BKA. He still has the desire to ambulate and has the ability to ambulate using bilateral prosthesis. With the patient's current physical condition and his experience in walking with a unilateral prosthesis I would expect him to continue to function at his previous level of K3. Previously he was walking in his community including on unlevel surfaces in order to perform his activities needed for both therapeutic activities as well as activities of daily living. These activities included walking around the home, outside the home, fishing at a local [place], light home maintenance, driving, social activities, navigation of stairs which he has in the home, and cooking. He is out of the house at least 5 out of 7 days. He does not have any comorbidities that would impact his ability to function with the prosthesis and he was previously functioning with a unilateral prosthesis.
[2018-12-09] MEDS: NORVASC PO SCH (09:39)
[2018-12-09] MEDS: ECOTRIN PO SCH (09:39)
[2018-12-09] MEDS: APRESOLINE PO SCH ×3 (09:39→20:05)
[2018-12-09] MEDS: ZINC SULFATE PO SCH (09:40)
[2018-12-09] MEDS: COREG PO SCH ×2 (09:40→21:48)
[2018-12-09] MEDS: HCTZ PO SCH (09:41)
[2018-12-09] MEDS: PROTONIX PO SCH (09:43)
[2018-12-09] MEDS: ZESTRIL PO SCH ×2 (09:43→21:48)
[2018-12-09] MEDS: HumaLOG SUB-Q SCH ×4 (09:44→21:49)
[2018-12-09] MEDS: VITAMIN C PO SCH (09:51)
[2018-12-09] MEDS: FLONASE NS SCH (10:13)
--- NOTE | 2018-12-09 12:47 | Ultrasound Report ---
Limited soft tissue Ultrasound of the left wrist/hand HISTORY: Swelling in L wrist/hand. TECHNIQUE: Grayscale and color Doppler imaging performed. COMPARISON: None FINDINGS: There is a mass measuring 3.2 x 1.0 x 3.3 cm in maximal dimensions with partially solid and cystic appearance. There is some internal blood flow. IMPRESSION: Partially solid and cystic mass over the left wrist. Recommend follow-up MRI with contras t for further evaluation. Signer Name: Adonis Chauhan MD Signed: 12/09/2018 12:43 PM Workstation Name: [id number]
[2018-12-09] MEDS: ROXICODONE PO PRN (14:04)
[2018-12-09] MEDS: PRAVACHOL PO SCH (20:05)
[2018-12-09] MEDS: LANTUS SUB-Q SCH (21:47)
[2018-12-10] MEDS: ROXICODONE PO PRN ×3 (04:50→22:15)
[2018-12-10] MEDS: HEPARIN SUB-Q SCH ×3 (05:20→22:16)
[2018-12-10] MEDS: HumaLOG SUB-Q SCH ×4 (07:20→22:27)
--- NOTE | 2018-12-10 07:54 | Progress Note ---
Subjective Date of service: 12/10/18 Principal diagnosis: Left BKA, ADL and mobility deficits Interval history: 48-year-old male who presented to the ER with pain and swelling with purulent drainage from the left diabetic foot wound. He had a recent medication of this second digit. He underwent a left BKA on November 20. Blood cultures were positive for MRSA and was started on IV vancomycin which she will continue through 12/05. Initial blood cultures and postop blood cultures were positive as stated but follow-up blood cultures on November 22 were negative. Patient has a right BKA and has been ambulatory with a prosthesis. States that he recently was scheduled to see his therapeutic massage technician for a retrofit. Oddly enough he has a different prosthesis for each leg. I advised him it would be hernandez to have the same therapeutic massage technician for both legs and the choice would be up to him as far as which one he wants to continue with. Patient states that he did have phantom pain and sensation in the right lower extremity with his prior amputation from approximately 2011 however he has not experienced any phantom sensation or phantom pain currently with his left amputation. Dressing was taken down with therapy and no malodorous or purulent discharge was noted. He did have some slight bloody drainage at the anterior medial aspect on the staple line. Participating in therapy and making progress. +BM. Denies palpitations, dyspnea, cough, N/V, or joint pain, diarrhea. Pain controlled with medications. BP better but still elevated. Has NOT required prn IV hydralazine in >24hrs. Working to get BP controlled before D/C THIS WEEK. Left wrist sore and swollen but stable. Ganglion cyst. Utilizing prosthesis with temporary repairs for safety. Awaiting new unit. Otherwise doing well. All records, vitals, labs and medications were reviewed. No other issues per patient, nursing or therapy. Objective - Exam Narrative Exam: MUSCULOSKELETAL SPECIALTY EXAM CONSTITUTIONAL: Well developed, well nourished, appropriately groomed, obese EENT: EOMI. Hearing intact to soft voice. RESPIRATORY: Clear to auscultation bilaterally, no increased work of breathing CARDIOVASCULAR: Regular Rate/ Rhythm, no swelling, edema or tenderness in BUE or BLE. All extremities warm. GI: + bowel sounds, soft, NTTP, nondistended. INTEGUMENTARY: Normal, no lesion, rash, masses or bruising noted in extremities, except for surgical wound on left lower extremity, ne intact, wrapped MUSCULOSKELETAL: BUE and BLE normal without defect, crepitus, subluxation, effusion, arthritic changes or TTP except for bilateral BKA. Swelling and TTP L wrist/hand RUE 4+/5, LUE 4-/5, both good ROM, with normal tone. BLE 4/5 good ROM, with normal tone NEURO: CN 2-12 grossly intact. Sensation intact in all extremities. No tremor noted in 4 extremities. POSTURE and GAIT: Sitting posture good. Balance appears reasonable. Able to hop with prosthesis and RW. Squat pivot transfer with prosthetic leg reasonable PSYCH: Alert, oriented x3, affect appears normal. Insight appears intact. - Constitutional Vitals: Vital Signs - 12hr 12/09/18 12/09/18 12/10/18 21:48 23:48 00:00 Temperature 37.1 C Pulse Rate 76 76 Respiratory 20 Rate Blood Pressure 159/80 151/80 151/80 O2 Sat by Pulse 96 Oximetry 12/10/18 12/10/18 04:41 07:22 Temperature 36.6 C 36.8 C Pulse Rate 79 83 Respiratory 20 20 Rate Blood Pressure 145/80 159/86 O2 Sat by Pulse 97 97 Oximetry - Allied health notes Allied health notes reviewed: nursing, PT, OT FIMS assessment as documented by PT/OT/ST: Grooming Patient cleans teeth/dentures: Yes Patient joseph/brushes hair: Yes Patient washes, rinses and Yes dries face: Patient washes, rinses and Yes dries hands: Patient shaves: Yes Patient performs (no make-up/ 4/4 (100%) shaving): Patient performs (w/ make-up/ 5/5 (100%) shaving): Grooming FIM Score 6. Modified [place] (Needs equipment/device . Extra time.) Toileting Toileting Device Commode over Toilet Patient able to: Adjust clothes before,Clean self,Adjust clothes after Patient able to perform: 3/3 (100%) Toileting FIM Score 5. Supv./Set-Up (Needs stand-by, set-up, applying prosth/orth.) Social interaction/Memory/Problem solving Social Interaction FIM Score 6. Mod. [place] (Mostly appropriate. May need meds. No supv.) Memory FIM Score 6. Modified [place](Mild difficulty remembering people/routines.) Problem Solving FIM Score 6. Mod. [place] (Mild difficulty or needs more time w/ complex.) Transfers Mode of Locomotion: Wheelchair Bed/Chair/Wheelchair Transfers 5. Supervision (Needs supv. or set-up for FIM Score sliding board, foot rests.) Toilet Transfers FIM Score 6. Modified [place] (Uses device, special seat or more time.) Patient transferred to: Shower Shower Transfers FIM Score 5. Supervision (Needs supv. or set-up with device.) Locomotion- Stairs Stairs FIM Score 0. Activity does not occur Locomotion- walk/wheelchair Most Frequent Mode of Wheelchair Locomotion: Ambulation Distance 2 Walking FIM Score 1. Total Assistance (Pt. < 25%, 2 or more person assist, or <50 ft.) Wheelchair Propulsion Distance 200 Wheelchair FIM Score 6. Modified [place] (Wheels a minimum of 150 ft.) Eating Eating FIM Score 6. Modified [place] (Special consistency or uses device.) Dressing-Upper body Patient retrieves clothing Yes items: Patient applies/removes UE Yes prosthesis or orthosis: Upper Body Dressing FIM Score 6. Modified [place] (Needs equipment, velcro or pros./orth.) Dressing-lower body Patient retrieves clothing Yes items: Patient applies/removes LE Yes prosthesis or orthosis: Lower Body Dressing FIM Score 6. Modified [place] (Needs equipment, velcro or pros./orth.) - Labs CBC & Chem 7: 12/02/18 06:53 12/09/18 06:16 Labs: Laboratory Results - last 72 hr 12/04/18 12/04/18 12/07/18 01:45 01:45 07:13 Sodium 140 Potassium 3.7 Chloride 107.2 H Carbon Dioxide 23 Anion Gap 14 BUN 20 Creatinine 1.4 Estimated GFR > 60 BUN/Creatinine Ratio 14 Glucose 77 POC Glucose Calcium 8.1 L Serum Total Protein 5.7 L Albumin 2.3 L Vwxvt-5-Ifyobphtz 0.3 Hwsik-6-Uicenbuak 0.8 Beta Globulins 0.4 Gamma Globulins 1.6 Abnorm Protein Band 1 see below PEP Interpretation see below H Immunofix Electrophor see below 12/07/18 12/07/18 12/07/18 08:10 11:57 16:45 Sodium Potassium Chloride Carbon Dioxide Anion Gap BUN Creatinine Estimated GFR BUN/Creatinine Ratio Glucose POC Glucose 73 162 H 106 H Calcium Serum Total Protein Albumin Xmxyr-1-Llgocjyoy Otppn-9-Lncaypyhr Beta Globulins Gamma Globulins Abnorm Protein Band 1 PEP Interpretation Immunofix Electrophor 12/08/18 12/08/18 12/08/18 06:52 07:54 13:42 Sodium 141 Potassium 3.8 Chloride 107.4 H Carbon Dioxide 24 Anion Gap 13 BUN 17 Creatinine 1.5 Estimated GFR > 60 BUN/Creatinine Ratio 11 Glucose 129 H POC Glucose 138 H 257 H Calcium 8.1 L Serum Total Protein Albumin Jlzxs-6-Nwkhjgeem Aefcn-7-Ophnkoxgn Beta Globulins Gamma Globulins Abnorm Protein Band 1 PEP Interpretation Immunofix Electrophor 12/08/18 12/08/18 12/09/18 16:58 20:50 06:16 Sodium 138 Potassium 4.0 Chloride 104.2 Carbon Dioxide 23 Anion Gap 15 BUN 18 Creatinine 1.7 H Estimated GFR 53 BUN/Creatinine Ratio 11 Glucose 195 H POC Glucose 173 H 131 H Calcium 8.1 L Serum Total Protein Albumin Kzguf-6-Entaicgyy Mqemi-1-Lqmqmjmbm Beta Globulins Gamma Globulins Abnorm Protein Band 1 PEP Interpretation Immunofix Electrophor 12/09/18 12/09/18 12/09/18 07:43 12:22 16:32 Sodium Potassium Chloride Carbon Dioxide Anion Gap BUN Creatinine Estimated GFR BUN/Creatinine Ratio Glucose POC Glucose 184 H 60 L 59 L Calcium Serum Total Protein Albumin Bynzk-1-Xzmufsmdt Baqua-1-Oqvklyrpj Beta Globulins Gamma Globulins Abnorm Protein Band 1 PEP Interpretation Immunofix Electrophor 12/09/18 12/09/18 12/10/18 17:17 20:45 07:31 Sodium Potassium Chloride Carbon Dioxide Anion Gap BUN Creatinine Estimated GFR BUN/Creatinine Ratio Glucose POC Glucose 102 191 H 110 H Calcium Serum Total Protein Albumin Enpob-6-Sivbxcymh Xdmna-6-Szkxojvkg Beta Globulins Gamma Globulins Abnorm Protein Band 1 PEP Interpretation Immunofix Electrophor Assessment and Plan Left BKA: Continue post surgical care with dressing changes every other day and when necessary. Monitor for any signs of wound infection. Ne to be removed in 6-8 weeks per surgery. Monitor for any signs of phantom pain or sensation. Manager [employer] when able. Advised patient to choose one therapeutic massage technician for both legs -having difficulty with the therapeutic massage technician that he chose continue with, may need to switch. Continue stump protector. Right BKA: In process of having prosthesis remade. Hypertension: Continue medications monitor for normotension adjust as needed. Hydralazine with prn. Nephrology consulted. On Clonidine, Amlodipine, Coreg, Hydralazine, Lisinopril, HCTZ Diabetes type 2, poorly controlled: Continue Carb controlled diet, continue insulin and adjust as needed. Reasonable control on unit. Outside hospital A1c 10.0. Anemia: Mixed chronic and postacute blood loss. Monitor CBC GERD: Continue Protonix monitor MRSA bacteremia: Last blood culture performed on November 22 was negative. This is post amputation of November 20. We'll continue to monitor andDC isolation. Vancomycin completed 12/05. Hyperlipidemia: Continue statin Monitor leukocytosis and renal function L wrist/hand swelling - c/w ganglion cyst. U/S ordered and reviewed. Pain level not c/w gout Z73.6 ADL dysfunction: OT will work on improving ability to perform ADLs (including assistive devices) to increase independence and decrease caregiver burden and improve functional transfers and mobility training. R26.2 Difficulty walking: PT will work on gait training and proper use of assistive devices and advance as appropriate to use of stairs and outside ambulation on uneven surfaces. R26.81 Unsteadiness on feet: PT will work on improving static and dynamic sitting and standing balance as well as proper use of assistive devices to decrease risk of falls. R26.89 Abnormality of gait: PT will work to improve safety and efficiency of gait through neuromotor training and gait training along with instruction on proper use of assistive devices. M62.81 Muscle weakness: PT & OT will work on strengthening exercises to improve functional strength including mixture of closed and open kinetic chain exercises. R53.81 Debility: PT & OT will work on improving overall functional status to improve participation with ADLs, mobility and social involvement. R53.83 Fatigue: PT & OT will work on improving endurance through aerobic exercises and therapeutic activity while monitoring patients tolerance for activity and vital signs as needed. DVT ppx: Heparin TID Pain: Continue physical modalities in therapy and pain medications as needed to achieve functional pain control. Currently well controlled with Roxicodone as dosed Sleep: Monitor and address as needed. Bowel: Monitor and address as needed. Appetite: Monitor and address as needed. Discharge planning: Pending therapy progress and care plan meeting. Will continue discussion with therapy team, SW, patient and family. Restrictions/ Precautions: Falls WB status: FWB Functional Hx: ADLs: Independent Cognition: Independent Mobility: Walking independently with right lower extremity prosthesis Barriers to Discharge: Decreased mobility and ability to perform self care, balance deficits, weakness, decreased endurance and new second BKA Estimated Length of Stay: 14-18 days Discharge Destination: Home with family Prosthetics: Mr. Lee had a previous right BKA and that current prosthesis is nonfunctional and ill fitting due to normal wear and tear and decreased residual limb volume. At this time the pin does not always lock into the leg but he has been using it in this manner. He attempted, and we also attempted, to have the original company make repairs to the leg or to replace it. This has proved difficult and so we contacted [facility] (formerly [facility]) to assist us with improving his ability for functional ambulation. Even with the issues with his current leg he was still utilizing it and walking as best he could. He now has a new left BKA. He still has the desire to ambulate and has the ability to ambulate using bila teral prosthesis. With the patient's current physical condition and his experience in walking with a unilateral prosthesis I would expect him to continue to function at his previous level of K3. Previously he was walking in his community including on unlevel surfaces in order to perform his activities needed for both therapeutic activities as well as activities of daily living. These activities included walking around the home, outside the home, fishing at a local [place], light home maintenance, driving, social activities, navigation of stairs which he has in the home, and cooking. He is out of the house at least 5 out of 7 days. He does not have any comorbidities that would impact his ability to function with the prosthesis and he was previously functioning with a unilateral prosthesis.
[2018-12-10] MEDS: ECOTRIN PO SCH (08:59)
[2018-12-10] MEDS: VITAMIN C PO SCH (08:59)
[2018-12-10] MEDS: PROTONIX PO SCH (08:59)
[2018-12-10] MEDS: ZINC SULFATE PO SCH (08:59)
[2018-12-10] MEDS: HCTZ PO SCH (08:59)
[2018-12-10] MEDS: NORVASC PO SCH (09:00)
[2018-12-10] MEDS: APRESOLINE PO SCH ×3 (09:01→22:21)
[2018-12-10] MEDS: ZESTRIL PO SCH ×2 (09:01→22:20)
[2018-12-10] MEDS: CATAPRES PO SCH ×6 (09:02→18:48)
[2018-12-10] MEDS: COREG PO SCH ×2 (09:03→22:21)
[2018-12-10] MEDS: FLONASE NS SCH (09:05)
[2018-12-10] MEDS: PRAVACHOL PO SCH (22:20)
[2018-12-10] MEDS: LANTUS SUB-Q SCH (22:26)
[2018-12-11] MEDS: CATAPRES PO SCH ×6 (01:32→16:30)
[2018-12-11] MEDS: ROXICODONE PO PRN (05:40)
[2018-12-11] MEDS: HEPARIN SUB-Q SCH ×3 (05:44→22:27)
[2018-12-11 06:24] LABS: Calcium 8.2 mg/dL (8.4-10.2); Hematocrit 24.7 % (35.5-45.6); Hemoglobin 7.9 gm/dl (11.8-15.2); Mean Corpuscular HGB Conc 32 % (32-34); Mean Corpuscular Volume 81 fl (84-94); Platelet Count 215 K/mm3 (140-440); Red Blood Count 3.06 M/mm3 (3.65-5.03); Red Cell Distribution Width 17.9 % (13.2-15.2)
[2018-12-11] MEDS: HumaLOG SUB-Q SCH ×4 (07:59→23:07)
[2018-12-11] MEDS: ZINC SULFATE PO SCH (08:01)
[2018-12-11] MEDS: ECOTRIN PO SCH (08:01)
[2018-12-11] MEDS: VITAMIN C PO SCH ×2 (08:02→22:26)
[2018-12-11] MEDS: HCTZ PO SCH (08:02)
[2018-12-11] MEDS: PROTONIX PO SCH (08:02)
[2018-12-11] MEDS: APRESOLINE PO SCH ×3 (08:07→20:49)
[2018-12-11] MEDS: ZESTRIL PO SCH ×2 (08:07→22:26)
[2018-12-11] MEDS: COREG PO SCH ×2 (08:08→22:26)
[2018-12-11] MEDS: NORVASC PO SCH (08:15)
[2018-12-11] MEDS: FLONASE NS SCH (08:20)
--- NOTE | 2018-12-11 09:06 | Progress Note ---
Subjective Date of service: 12/11/18 Principal diagnosis: Left BKA, ADL and mobility deficits Interval history: 48-year-old male who presented to the ER with pain and swelling with purulent drainage from the left diabetic foot wound. He had a recent medication of this second digit. He underwent a left BKA on November 20. Blood cultures were positive for MRSA and was started on IV vancomycin which she will continue through 12/05. Initial blood cultures and postop blood cultures were positive as stated but follow-up blood cultures on November 22 were negative. Patient has a right BKA and has been ambulatory with a prosthesis. States that he recently was scheduled to see his fall intern for a retrofit. Oddly enough he has a different prosthesis for each leg. I advised him it would be hernandez to have the same fall intern for both legs and the choice would be up to him as far as which one he wants to continue with. Patient states that he did have phantom pain and sensation in the right lower extremity with his prior amputation from approximately 2011 however he has not experienced any phantom sensation or phantom pain currently with his left amputation. Dressing was taken down with therapy and no malodorous or purulent discharge was noted. He did have some slight bloody drainage at the anterior medial aspect on the staple line. Participating in therapy and making progress. +BM. Denies palpitations, dyspnea, cough, N/V, or joint pain, diarrhea. Pain controlled with medications. BP better but still elevated. Has NOT required prn IV hydralazine since 12/08. Working to get BP controlled before D/C THIS WEEK. Residual limb healing well with no signs of infection or breakdown. Will need to follow up with surgeon for staple removal (6-8wks from OR date). Hgb has declined, started Fe, Folate, Vit C. Will need to recheck CBC in 2-4 wks. Left wrist sore and swollen but stable. Ganglion cyst. Utilizing prosthesis with temporary repairs for safety. Awaiting new unit. Otherwise doing well. Discussed in team conference. Doing fairly well with therapy progress but is limited due to pain in LUE. Would like to have platform walker per PT but W/C delivered to his home today from OSH. Should be able to use RW once swelling is reduce in LUE. He keeps removing wraps. All records, vitals, labs and medications were reviewed. No other issues per p atient, nursing or therapy. Objective - Exam Narrative Exam: MUSCULOSKELETAL SPECIALTY EXAM CONSTITUTIONAL: Well developed, well nourished, appropriately groomed, obese EENT: EOMI. Hearing intact to soft voice. RESPIRATORY: Clear to auscultation bilaterally, no increased work of breathing CARDIOVASCULAR: Regular Rate/ Rhythm, no swelling, edema or tenderness in BUE or BLE. All extremities warm. GI: + bowel sounds, soft, NTTP, nondistended. INTEGUMENTARY: Normal, no lesion, rash, masses or bruising noted in extremities, except for surgical wound on left lower extremity, ne intact, no drainage or signs of infection MUSCULOSKELETAL: BUE and BLE normal without defect, crepitus, subluxation, effusion, arthritic changes or TTP except for bilateral BKA. Swelling and TTP L wrist/hand RUE 4+/5, LUE 4-/5, both good ROM, with normal tone. BLE 4/5 good ROM, with normal tone NEURO: CN 2-12 grossly intact. Sensation intact in all extremities. No tremor noted in 4 extremities. POSTURE and GAIT: Sitting posture good. Balance appears reasonable. Able to hop with prosthesis and RW. Squat pivot transfer with prosthetic leg reasonable PSYCH: Alert, oriented x3, affect appears normal. Insight appears intact. - Constitutional Vitals: Vital Signs - 12hr 12/10/18 12/10/18 12/10/18 22:20 22:21 23:46 Temperature 37.1 C Pulse Rate 84 84 85 Respiratory 20 Rate Blood Pressure 145/75 145/75 143/71 O2 Sat by Pulse 96 Oximetry 12/11/18 12/11/18 12/11/18 01:32 01:33 05:00 Temperature 36.9 C Pulse Rate 84 84 85 Respiratory 20 Rate Blood Pressure 145/75 145/75 151/87 O2 Sat by Pulse 97 Oximetry 12/11/18 12/11/18 12/11/18 08:07 08:08 08:09 Temperature Pulse Rate 79 79 79 Respiratory Rate Blood Pressure 161/90 161/90 160/90 O2 Sat by Pulse Oximetry 12/11/18 12/11/18 08:14 08:15 Temperature Pulse Rate 79 79 Respiratory Rate Blood Pressure 161/90 161/90 O2 Sat by Pulse Oximetry - Allied health notes Allied health notes reviewed: nursing, PT, OT FIMS assessment as documented by PT/OT/ST: Grooming Patient cleans teeth/dentures: Yes Patient joseph/brushes hair: Yes Patient washes, rinses and Yes dries face: Patient washes, rinses and Yes dries hands: Patient shaves: Yes Patient performs (no make-up/ 07/17 (100%) shaving): Patient performs (w/ make-up/ 08/17 (100%) shaving): Grooming FIM Score 6. Modified [place] (Needs equipment/device . Extra time.) Toileting Toileting Device Commode over Toilet Patient able to: Adjust clothes before,Clean self,Adjust clothes after Patient able to perform: 3/3 (100%) Toileting FIM Score 5. Supv./Set-Up (Needs stand-by, set-up, applying prosth/orth.) Social interaction/Memory/Problem solving Social Interaction FIM Score 6. Mod. [place] (Mostly appropriate. May need meds. No supv.) Memory FIM Score 6. Modified [place](Mild difficulty remembering people/routines.) Problem Solving FIM Score 6. Mod. [place] (Mild difficulty or needs more time w/ complex.) Transfers Mode of Locomotion: Wheelchair Bed/Chair/Wheelchair Transfers 5. Supervision (Needs supv. or set-up for FIM Score sliding board, foot rests.) Toilet Transfers FIM Score 6. Modified [place] (Uses device, special seat or more time.) Patient transferred to: Shower Shower Transfers FIM Score 5. Supervision (Needs supv. or set-up with device.) Locomotion- Stairs Stairs FIM Score 0. Activity does not occur Locomotion- walk/wheelchair Most Frequent Mode of Wheelchair Locomotion: Ambulation Distance 25 Walking FIM Score 1. Total Assistance (Pt. < 25%, 2 or more person assist, or <50 ft.) Wheelchair Propulsion Distance 100 Wheelchair FIM Score 6. Modified [place] (Wheels a minimum of 150 ft.) Eating Eating FIM Score 6. Modified [place] (Special consistency or uses device.) Dressing-Upper body Patient retrieves clothing Yes items: Patient applies/removes UE Yes prosthesis or orthosis: Upper Body Dressing FIM Score 6. Modified [place] (Needs equipment, velcro or pros./orth.) Dressing-lower body Patient retrieves clothing Yes items: Patient applies/removes LE Yes prosthesis or orthosis: Lower Body Dressing FIM Score 6. Modified [place] (Needs equipment, velcro or pros./orth.) - Labs CBC & Chem 7: 12/11/18 05:37 12/11/18 05:37 Labs: Laboratory Results - last 72 hr 12/04/18 12/04/18 12/08/18 01:45 01:45 13:42 WBC RBC Hgb Hct MCV MCH MCHC RDW Plt Count Sodium Potassium Chloride Carbon Dioxide Anion Gap BUN Creatinine Estimated GFR BUN/Creatinine Ratio Glucose POC Glucose 257 H Calcium Serum Total Protein 5.7 L Albumin 2.3 L Jzvxl-8-Bfxvlwqfw 0.3 Zuzui-6-Tjxfsxuwj 0.8 Beta Globulins 0.4 Gamma Globulins 1.6 Abnorm Protein Band 1 see below PEP Interpretation see below H Immunofix Electrophor see below 12/08/18 12/08/18 12/09/18 16:58 20:50 06:16 WBC RBC Hgb Hct MCV MCH MCHC RDW Plt Count Sodium 138 Potassium 4.0 Chloride 104.2 Carbon Dioxide 23 Anion Gap 15 BUN 18 Creatinine 1.7 H Estimated GFR 53 BUN/Creatinine Ratio 11 Glucose 195 H POC Glucose 173 H 131 H Calcium 8.1 L Serum Total Protein Albumin Kevzn-6-Ujxbsryyf Hlrph-3-Coafuxyme Beta Globulins Gamma Globulins Abnorm Protein Band 1 PEP Interpretation Immunofix Electrophor 12/09/18 12/09/18 12/09/18 07:43 12:22 16:32 WBC RBC Hgb Hct MCV MCH MCHC RDW Plt Count Sodium Potassium Chloride Carbon Dioxide Anion Gap BUN Creatinine Estimated GFR BUN/Creatinine Ratio Glucose POC Glucose 184 H 60 L 59 L Calcium Serum Total Protein Albumin Fvako-4-Cbupoxbjm Moazb-6-Hfsgtuwva Beta Globulins Gamma Globulins Abnorm Protein Band 1 PEP Interpretation Immunofix Electrophor 12/09/18 12/09/18 12/10/18 17:17 20:45 07:31 WBC RBC Hgb Hct MCV MCH MCHC RDW Plt Count Sodium Potassium Chloride Carbon Dioxide Anion Gap BUN Creatinine Estimated GFR BUN/Creatinine Ratio Glucose POC Glucose 102 191 H 110 H Calcium Serum Total Protein Albumin Dmogv-1-Lgiplgdij Lyaty-9-Dluvgrton Beta Globulins Gamma Globulins Abnorm Protein Band 1 PEP Interpretation Immunofix Electrophor 12/10/18 12/10/18 12/10/18 11:33 16:18 22:11 WBC RBC Hgb Hct MCV MCH MCHC RDW Plt Count Sodium Potassium Chloride Carbon Dioxide Anion Gap BUN Creatinine Estimated GFR BUN/Creatinine Ratio Glucose POC Glucose 136 H 209 H 93 Calcium Serum Total Protein Albumin Wglwf-2-Vbmlhuzse Xhzfg-0-Nfngczrlk Beta Globulins Gamma Globulins Abnorm Protein Band 1 PEP Interpretation Immunofix Electrophor 12/11/18 12/11/18 12/11/18 05:37 05:37 08:05 WBC 6.2 RBC 3.06 L Hgb 7.9 L Hct 24.7 L MCV 81 L MCH 26 L MCHC 32 RDW 17.9 H Plt Count 215 Sodium 139 Potassium 4.2 Chloride 103.9 Carbon Dioxide 26 Anion Gap 13 BUN 16 Creatinine 1.8 H Estimated GFR 49 BUN/Creatinine Ratio 9 Glucose 166 H POC Glucose 132 H Calcium 8.2 L Serum Total Protein Albumin Qqjvl-5-Jhmxnluyn Ugfhu-0-Ideblxuly Beta Globulins Gamma Globulins Abnorm Protein Band 1 PEP Interpretation Immunofix Electrophor Assessment and Plan Left BKA: Continue post surgical care with dressing changes every other day and when necessary. Monitor for any signs of wound infection. Ne to be remov ed in 6-8 weeks per surgery. Monitor for any signs of phantom pain or sensation. Co[employer] Drawer Hand when able. Advised patient to choose one fall intern for both legs -having difficulty with the fall intern that he chose continue with, may need to switch. Continue stump protector. Right BKA: In process of having prosthesis remade. Hypertension: Continue medications monitor for normotension adjust as needed. Hydralazine with prn. Nephrology consulted. On Clonidine, Amlodipine, Coreg, Hydralazine, Lisinopril, HCTZ Diabetes type 2, poorly controlled: Continue Carb controlled diet, continue insulin and adjust as needed. Reasonable control on unit. Outside hospital A1c 10.0. Anemia: Mixed chronic and postacute blood loss. Monitor CBC. Folate, Fe, Vit C started GERD: Continue Protonix monitor MRSA bacteremia: Last blood culture performed on November 22 was negative. This is post amputation of November 20. We'll continue to monitor andDC isolation. Vancomycin completed 12/05. Hyperlipidemia: Continue statin Monitor leukocytosis and renal function L wrist/hand swelling - c/w ganglion cyst. U/S ordered and reviewed. Pain level not c/w gout Z73.6 ADL dysfunction: OT will work on improving ability to perform ADLs (including assistive devices) to increase independence and decrease caregiver burden and improve functional transfers and mobility training. R26.2 Difficulty walking: PT will work on gait training and proper use of assistive devices and advance as appropriate to use of stairs and outside ambulation on uneven surfaces. R26.81 Unsteadiness on feet: PT will work on improving static and dynamic sitting and standing balance as well as proper use of assistive devices to decrease risk of falls. R26.89 Abnormality of gait: PT will work to improve safety and efficiency of gait through neuromotor training and gait training along with instruction on proper use of assistive devices. M62.81 Muscle weakness: PT & OT will work on strengthening exercises to improve functional strength including mixture of closed and open kinetic chain exercises. R53.81 Debility: PT & OT will work on improving overall functional status to improve participation with ADLs, mobility and social involvement. R53.83 Fatigue: PT & OT will work on improving endurance through aerobic exercises and therapeutic activity while monitoring patients tolerance for activity and vital signs as needed. DVT ppx: Heparin TID Pain: Continue physical modalities in therapy and pain medications as needed to achieve functional pain control. Currently well controlled with Roxicodone as dosed Sleep: Monitor and address as needed. Bowel: Monitor and address as needed. Appetite: Monitor and address as needed. Discharge planning: Pending therapy progress and care plan meeting. Will continue discussion with therapy team, SW, patient and family. Restrictions/ Precautions: Falls WB status: FWB Functional Hx: ADLs: Independent Cognition: Independent Mobility: Walking independently with right lower extremity prosthesis Barriers to Discharge: Decreased mobility and ability to perform self care, balance deficits, weakness, decreased endurance and new second BKA Estimated Length of Stay: 14-18 days Discharge Destination: Home with family Prosthetics: Mr. Lee had a previous right BKA and that current prosthesis is nonfunctional and ill fitting due to normal wear and tear and decreased residual limb volume. At this time the pin does not always lock into the leg but he has been using it in this manner. He attempted, and we also attempted, to have the original company make repairs to the leg or to replace it. This has proved difficult and so we contacted [facility] to assist us with improving his ability for functional ambulation. Even with the issues with his current leg he was still utilizing it and walking as best he could. He now has a new left BKA. He still has the desire to ambulate and has the ability to ambulate using bilateral prosthesis. With the patient's current physical condition and his experience in walking with a unilateral prosthesis I would expect him to continue to function at his previous level of K3. Previously he was walking in his community including on unlevel surfaces in order to perform his activities needed for both therapeutic activities as well as activities of daily living. These activities included walking around the home, outside the home, fishing at a local [employer], light home maintenance, driving, social activities, navigation of stairs which he has in the home, and cooking. He is out of the house at least 5 out of 7 days. He does not have any comorbidities that would impact his ability to function with the prosthesis and he was previously functioning with a unilateral prosthesis.
[2018-12-11 10:53] LABS: Iron 29 ug/dL (49-181); Total Iron Binding Capacity 122 mcg/dL (250-450)
[2018-12-11] MEDS: PRAVACHOL PO SCH (22:26)
[2018-12-11] MEDS: FEOSOL PO SCH (22:26)
[2018-12-11] MEDS: LANTUS SUB-Q SCH (22:27)
[2018-12-11] MEDS: DESYREL PO PRN (22:27)
[2018-12-12] MEDS: CATAPRES PO SCH ×4 (00:13→13:12)
[2018-12-12] MEDS: HEPARIN SUB-Q SCH ×2 (05:59→13:12)
[2018-12-12] MEDS: APRESOLINE IV PRN (07:33)
[2018-12-12] MEDS ORDERED: FOLVITE PO SCH (08:00)
[2018-12-12] MEDS: HumaLOG SUB-Q SCH ×2 (09:06→13:16)
[2018-12-12] MEDS: NORVASC PO SCH (09:08)
[2018-12-12] MEDS: HCTZ PO SCH (09:08)
[2018-12-12] MEDS: COREG PO SCH (09:08)
[2018-12-12] MEDS: APRESOLINE PO SCH ×2 (09:08→13:12)
[2018-12-12] MEDS: PROTONIX PO SCH (09:08)
[2018-12-12] MEDS: ZESTRIL PO SCH (09:09)
[2018-12-12] MEDS: VITAMIN C PO SCH (09:09)
[2018-12-12] MEDS: ZINC SULFATE PO SCH (09:09)
[2018-12-12] MEDS: FEOSOL PO SCH (09:09)
[2018-12-12] MEDS: ECOTRIN PO SCH (09:09)
--- NOTE | 2018-12-12 14:47 | Discharge Summary ---
Providers - Providers Date of Admission: 11/25/18 16:08 Date of discharge: 12/12/18 Attending physician: DENNIS BRODY III, MD 11/25/18 16:08 Consult to Wound/ET Nurse [CONS] Routine Reason For Exam: wound eval Occupational Therapy Evaluate and Treat [CONS] Routine Comment: Reason For Exam: ADL dysfunction Physical Therapy Evaluation and Treat [CONS] Routine Comment: Reason For Exam: Mobility Dysfunction 11/25/18 16:20 Consult to Case Management [CONS] Routine Services Needed at Discharge: Home Health Services Notified:: cm notified 12/02/18 11:29 Consult to Physician [CONS] Routine Comment: Consulting Provider: MEET COLLINS Physician Instructions: Reason For Exam: Renal mgmnt, assist w optimizing HTN treatment Primary care physician: AUTOMOBILE MECHANIC ASSISTANT Hospitalization Reason for admission: Left BKA Condition: Good Pertinent studies: Renal U/S 12/02/2018: No hydronephrosis or cortical thinning of either kidney, nonobstructing stone in the lower pole of the left kidney, small supple cyst in the lower pole of the right kidney Hospital course: 48-year-old male who presented to the ER with pain and swelling with purulent drainage from the left diabetic foot wound. He had a recent medication of this second digit. He underwent a left BKA on November 20. Blood cultures were positive for MRSA and was started on IV vancomycin which she will continue through 12/05. Initial blood cultures and postop blood cultures were positive as stated but follow-up blood cultures on November 22 were negative. Patient has a right BKA and has been ambulatory with a prosthesis. States that he recently was scheduled to see his prosthesis for a retrofit. Oddly enough he has a different prosthesis for each leg. I advised him it would be hernandez to have the same prosthesis for both legs and the choice would be up to him as far as which one he wants to continue with. Patient states that he did have phantom pain and sensation in the right lower extremity with his prior amputation from approximately 2011 however he has not experienced any phantom sensation or phantom pain currently with his left amputation. Dressing was taken down with therapy and no malodorous or purulent discharge was noted. He did have some slight bloody drainage at the anterior medial aspect on the staple line. Left BKA: Continue post surgical care with dressing changes every other day and when necessary. Monitor for any signs of wound infection. James to be removed in 6-8 weeks per surgery. In Store Marketing Associate when able. Continue stump protector. Would recommend the patient continue with home health nursing and therapy until his james are removed and he is able to utilize prosthetic for his left lower extremity. At that point would recommend referral for outpatient physical therapy for short course of training for ambulating on bilateral prostheses. Right BKA: In process of having prosthesis remade. Hypertension: Continue medications monitor for normotension adjust as needed. Nephrology consulted. On Clonidine, Amlodipine, Coreg, Hydralazine, Lisinopril, and HCTZ. Still not well controlled. IM and Nephrology have assisted with attempting to get his BP under better control.Will need to monitor closely at discharge and adjust medications per PCP. Systolic blood pressure has been [id number] over the past several days. Diabetes type 2, poorly controlled: Continue Carb controlled diet, continue insulin and adjust as needed. Reasonable control on unit. Outside hospital A1c 10.0. Anemia: Mixed chronic and postacute blood loss. On Fe, Vit C and Folate. Recheck in 2 and 4 weeks. GERD: Continue Protonix monitor MRSA bacteremia: Last blood culture performed on November 22 was negative. This is post amputation of November 20. Vancomycin completed 12/05. Hyperlipidemia: Continue statin L wrist/hand swelling - c/w ganglion cyst. U/S ordered and reviewed. Pain level not c/w gout. Previous imaging at OSH [facility] for DVT or fx. Wrapping for comfort and reduction of swelling Prosthetics: Mr. Lee had a previous right BKA and that current prosthesis is nonfunctional and ill fitting due to normal wear and tear and decreased residual limb volume. At this time the pin does not always lock into the leg but he has been using it in this manner. He attempted, and we also attempted, to have the original company make repairs to the leg or to replace it. This has proved difficult and so we contacted [facility] to assist us with improving his ability for functional ambulation. Even with the issues with his current leg he was still utilizing it and walking as best he could. He now has a new left BKA. He still has the desire to ambulate and has the ability to ambulate using bilateral prosthesis. With the patient's current physical condition and his experience in walking with a unilateral prosthesis I would expect him to continue to function at his previous level of K3. Previously he was walking in his community including on unlevel surfaces in order to perform his activities needed for both therapeutic activities as well as activities of daily living. These activities included walking around the home, outside the home, [place], light home maintenance, driving, social activities, navigation of stairs which he has in the home, and cooking. He is out of the house at least 5 out of 7 days. He does not have any comorbidities that would impact his ability to function with the prosthesis and he was previously functioning with a unilateral prosthesis. Disposition: [id number] HOME UNDER HOME [facility] Time spent for discharge: >35mins - Discharge Diagnoses (1) Chronic kidney disease Status: Chronic Qualifiers: Chronic kidney disease stage: stage 3 (moderate) Qualified Code(s): N18.3 - Chronic kidney disease, stage 3 (moderate) (2) Diabetes mellitus type 2 with complications Status: Chronic Comment: Poorly controlled (3) Hypertension Status: Chronic Qualifiers: Hypertension type: essential hypertension Qualified Code(s): I10 - Essential (primary) hypertension Comment: with renal complications (4) S/P BKA (below knee amputation) bilateral Status: Acute Comment: Right chronic, Left acute Core Measure Documentation - Palliative Care Palliative Care/ Comfort Measures: Not Applicable - Core Measures Any of the following diagnoses?: none Exam - Physical Exam Narrative exam: MUSCULOSKELETAL SPECIALTY EXAM CONSTITUTIONAL: Well developed, well nourished, appropriately groomed, obese EENT: EOMI. Hearing intact to soft voice. RESPIRATORY: Clear to auscultation bilaterally, no increased work of breathing CARDIOVASCULAR: Regular Rate/ Rhythm, no swelling, edema or tenderness in BUE or BLE. All extremities warm. GI: + bowel sounds, soft, NTTP, nondistended. INTEGUMENTARY: Normal, no lesion, rash, masses or bruising noted in extremities, except for surgical wound on left lower extremity, james intact, no drainage or signs of infection MUSCULOSKELETAL: BUE and BLE normal without defect, crepitus, subluxation, effusion, arthritic changes or TTP except for bilateral BKA. Swelling and TTP L wrist/hand RUE 4+/5, LUE 4-/5, both good ROM, with normal tone. BLE 4/5 good ROM, with normal tone NEURO: CN 2-12 grossly intact. Sensation intact in all extremities. No tremor noted in 4 extremities. POSTURE and GAIT: Sitting posture good. Balance appears reasonable. Able to hop with prosthesis and RW. Squat pivot transfer with prosthetic leg reasonable PSYCH: Alert, oriented x3, affect appears normal. Insight appears intact. - Constitutional Vitals: Temp Pulse Resp BP Pulse Ox 36.7 C 83 18 138/75 95 12/12/18 08:56 12/12/18 11:49 12/12/18 08:56 12/12/18 11:49 12/12/18 11:49 Plan Activity: advance as tolerated, up only with assistance, fall precautions Diet: diabetic Wound: keep clean and dry, change dressing (every other day and prn) Special Instructions: record daily BP diary, record blood sugar diary, physical therapy (Out patient once prosthesis is delivered for LLE), occupational therapy, home health RN Durable Medical Equipment Needed Upon Discharge: Walker-Rolling (will have to purchase separately due to w/c delivery), Wheelchair (delivered by OSH), Bedside Commode Additional Instructions: Close follow up with PCP, surgeon and food service representative. CBC and BMP in 1-2 weeks Follow up with: TORO PETER MD [Staff Physician] - 7 Days AD RONDON MD [Staff Physician] - 7 Days PRIMARY CARE, [Primary Care Provider] - 7 Days BOBBY QUINONES MD [Staff Physician] - 7 Days Prescriptions: Insulin Glargine [Lantus VIAL] 35 units SUB-Q QHS 30 Days units Pravastatin [Pravachol] 20 mg PO QHS #30 tablet hydrALAZINE [Apresoline TAB] 100 mg PO TID #90 tab Aspirin EC 325 mg PO QDAY #30 tablet cloNIDine [Catapres] 0.1 mg PO Q8H #90 tablet cloNIDine [Catapres] 0.2 mg PO Q8H #90 tablet Carvedilol [Coreg] 25 mg PO BID #60 tablet Ferrous Sulfate [Feosol 325 MG tab] 325 mg PO BID #60 tablet Folic Acid [Folvite] 1 mg PO QDAY #30 tablet hydroCHLOROthiazide [HCTZ] 25 mg PO QDAY #30 tablet Lispro Insulin [HumaLOG] 0 unit SUB-Q ACHS 30 Days units amLODIPine [Norvasc] 10 mg PO QDAY #30 tablet Pantoprazole [Protonix TAB] 20 mg PO QDAY #30 tablet. oxyCODONE [roxiCODONE] 5 mg PO Q6H PRN #15 tablet PRN Reason: Pain, Moderate (4-6) Ascorbic Acid [Vitamin C] 500 mg PO BID #60 tablet Lisinopril [Zestril TAB] 20 mg PO BID #60 tablet Zinc Sulfate 220 mg PO QDAY #30 capsule
[2018-12-12 16:48] VITALS: BP 141/81
== END 2018-12-12 16:30 | disposition home health service (06) | DRG 914 ==
LOC: 3A 15:33 → UNDOADMIN 15:33 → 3B 16:08
PROVIDERS: ADMIT Physical Medicine & Rehabilitation; ATTEND Physical Medicine & Rehabilitation
DX: S88.112A Complete traumatic amputation at level between knee and ankle, left lower leg, initial encounter (principal); E11.69 Type 2 diabetes mellitus with other specified complication; E11.51 Type 2 diabetes mellitus with diabetic peripheral angiopathy without gangrene; E11.65 Type 2 diabetes mellitus with hyperglycemia; E87.5 Hyperkalemia; E78.5 Hyperlipidemia, unspecified; K21.9 Gastro-esophageal reflux disease without esophagitis; E66.9 Obesity, unspecified; D64.9 Anemia, unspecified; R26.89 Other abnormalities of gait and mobility; D72.829 Elevated white blood cell count, unspecified; I12.9 Hypertensive chronic kidney disease with stage 1 through stage 4 chronic kidney disease, or unspecified chronic kidney disease; N18.2 Chronic kidney disease, stage 2 (mild); E11.22 Type 2 diabetes mellitus with diabetic chronic kidney disease; Z68.31 Body mass index [BMI] 31.0-31.9, adult; Z82.49 Family history of ischemic heart disease and other diseases of the circulatory system; Z89.512 Acquired absence of left leg below knee; Z89.511 Acquired absence of right leg below knee; Z88.0 Allergy status to penicillin; Z79.899 Other long term (current) drug therapy; Z79.4 Long term (current) use of insulin; Z22.322 Carrier or suspected carrier of Methicillin resistant Staphylococcus aureus
CPT/HCPCS: 36415; 76770; 80048; 80053; 80074; 80202; 81001; 82570; 82607; 82728; 82747; 82962; 83550; 83970; 84100; 84156; 84165; 84550; 85025; 85027; 86334; 87806; G0378; A9270-GY; J0360; J1644; J1815; J3370; J7050; J7512; Q0162